=== PATIENT | male | born 1945 | race Caucasian/White ===

== ENCOUNTER 2017-11-25 11:30 | Outpatient (RCR) | payer SELFPAY | END 2017-11-26 23:59 | disposition home or self-care (01) | LOC: CR 11:30 | PROVIDERS: PCP Family Medicine; Visit Provider Family Medicine | DX: Z95.1 Presence of aortocoronary bypass graft (principal); Z51.89 Encounter for other specified aftercare ==

== ENCOUNTER 2017-12-16 07:00 | Outpatient (RCR) | payer SELFPAY | END 2017-12-26 23:59 | disposition home or self-care (01) | LOC: CR 07:00 | PROVIDERS: PCP Family Medicine; Visit Provider Family Medicine | DX: Z95.1 Presence of aortocoronary bypass graft (principal); Z51.89 Encounter for other specified aftercare ==

== ENCOUNTER 2018-01-25 07:00 | Outpatient (RCR) | payer SELFPAY | END 2018-01-26 23:59 | disposition home or self-care (01) | LOC: CR 07:00 | PROVIDERS: PCP Family Medicine; Visit Provider Family Medicine | DX: Z95.1 Presence of aortocoronary bypass graft (principal); Z51.89 Encounter for other specified aftercare ==

== ENCOUNTER 2018-02-22 07:00 | Outpatient (RCR) | payer SELFPAY | END 2018-02-25 23:59 | disposition home or self-care (01) | LOC: CR 07:00 | PROVIDERS: PCP Family Medicine; Visit Provider Family Medicine | DX: Z95.1 Presence of aortocoronary bypass graft (principal); Z51.89 Encounter for other specified aftercare ==

== ENCOUNTER 2018-03-08 07:00 | Outpatient (RCR) | payer SELFPAY | END 2018-03-28 23:59 | LOC: CR 07:00 | PROVIDERS: PCP Family Medicine; Visit Provider Family Medicine | DX: Z95.1 Presence of aortocoronary bypass graft (principal); Z51.89 Encounter for other specified aftercare ==

== ENCOUNTER 2018-03-29 15:57 | Observation (INO) | payer MEDICARE, BC, SELFPAY ==
[2018-03-29] VITALS (65 sets, daily range): BP systolic 106–156; BP diastolic 56–91; PULSE 50–126; RESP 10–25; TEMP 36.3–36.8; O2SAT 91–98
--- NOTE | 2018-03-29 16:04 | W.ED.GENAD ---
Discharge Plan Disposition Patient Disposition: [facility] INPATIENT Condition: Improving Discharge Details Chief Complaint: RespSymp Clinical Impression: Rapid atrial fibrillation Reason For Visit: SOB, AFIB Admit Date/Time: 03/29/18 18:49 Admit Provider: Demetri Soriano Attending Provider: Demetri Soriano Primary Care Provider: Yohan Pino ED Provider: Carlos Nuno Discharge Data Discharge Date/Time-TO BE ENTERED AT DEPARTURE: 03/29/18 19:59 Medical Decision Making 73-year-old 5-year-old corneal with very artery disease status post CABG, paroxysmal atrial fibrillation, COPD. He presents with intermittent episodes of exertional dyspnea over approximately 7-10 days time, worsening today. He does not have associated chest pain, no recent illness. He arrives to emerge department temperature 36.3, pulse in the 120s blood pressure 136/88. He is in rapid atrial fibrillation. DDX includes ACS, CHF, dehydration. IV placed, labs obtained and pt placed on monitor tech with bed rest. Given his rapid atrial rate, he was given 10 mg of diltiazem IV. It allow for some rate control and repeat EKG shows atrial fibrillation with a rate of 94. Lab Data Lab results reviewed: Yes I reviewed the patient's lab results. Laboratory Results - last 24 hr 03/29/18 03/29/18 03/29/18 16:07 16:07 16:07 WBC RBC Hgb Hct MCV MCH MCHC RDW Plt Count MPV Immature Gran % Neutrophils % Lymphocytes % Monocytes % Eosinophils % Basophils % Absolute Neutrophils Absolute Lymphocytes Absolute Monocytes Absolute Eosinophils Absolute Basophils PT 11.0 INR 1.1 Sodium 141 Potassium 4.0 Chloride 103 Carbon Dioxide 28.8 Anion Gap 9.2 BUN 25 H Creatinine 1.35 H Estimated GFR/1.73 m2 51.52 Glucose 173 H Calcium 9.4 Magnesium 1.8 Total Bilirubin 0.7 AST 17 ALT 34 Alkaline Phosphatase 68 Troponin I 0.03 NT-Pro-B Natriuret Pep 470 H Total Protein 7.3 Albumin 4.0 03/29/18 16:07 WBC 7.53 RBC 4.93 Hgb 14.8 Hct 42.8 MCV 86.8 MCH 30.0 MCHC 34.6 RDW 13.2 Plt Count 206 MPV 10.1 Immature Gran % 0.1 Neutrophils % 63.9 Lymphocytes % 27.0 Monocytes % 7.3 Eosinophils % 1.6 Basophils % 0.1 Absolute Neutrophils 4.81 Absolute Lymphocytes 2.03 Absolute Monocytes 0.55 Absolute Eosinophils 0.12 Absolute Basophils 0.01 PT INR Sodium Potassium Chloride Carbon Dioxide Anion Gap BUN Creatinine Estimated GFR/1.73 m2 Glucose Calcium Magnesium Total Bilirubin AST ALT Alkaline Phosphatase Troponin I NT-Pro-B Natriuret Pep Total Protein Albumin ECG Data Attestation: I personally reviewed and interpreted this ECG (s) as follows: Prior ECG tracings: available for review Interpretation: Rapid atrial fibrillation with a rate of approximately 100, the QRS shows left bundle branch block pattern, there is no ST segment elevation appreciated, it is not significantly change versus comparison from April 2006 EKG #2 at 1705 hrs. reveals underlying atrial fibrillation with a ventricular rate of 94, persistent left bundle branch block pattern HPI General Mode of arrival: ambulatory. Date/Time Provider Initiated Documentation: 03/29/18 15:59. Limitations to Documentation: no limitations. Information obtained by: patient. History of Present Illness 73 year old M presents to the emergency department with the chief complaint of Exertional dyspnea over a week's time, described as moderate, Quality is described as dull, and is localized to the chest. Patient reports no radiation. Patient started experiencing this day(s) and it has been intermittent. Rest improves symptom(s), Movement worsens symptoms . Patient notes no other symptoms. and shortness of breath; denies chest pain. Patient did receive the following treatments prior to arrival, none HPI Narrative: 73-year-old male with coronary artery disease, paroxysmal atrial fibrillation who states that he said intermittent episodes of exertional dyspnea primarily when moving heavy objects over approximately 1 week's time. It seems to resolve with rest. He states he does not of chest pain, nor did he want to have any previous MIs. This evening he was loading building material into his truck became quite winded and called his son to bring him to the ER. He states he does not recognize when he goes into atrial fibrillation but has continued to take his Cardizem, Eliquis, and other prescribed medication Related Data Home Medications Medication Instructions Recorded Confirmed aspirin [Ecotrin Low Strength] 81 mg PO HS 06/10/13 03/29/18 atorvastatin [Lipitor] 40 mg PO HS 06/10/13 03/29/18 albuterol sulfate 2 puff INHALATION Q6H PRN inhaler 07/03/14 03/29/18 blood sugar diagnostic [FreeStyle strip 07/03/14 09/19/16 Lite Strips] multivitamin [Daily Multi-Vitamin] 1 ea PO DAILY 07/03/14 03/29/18 nitroglycerin 0.4 mg SUBLINGUAL ONCE tab-cap 07/03/14 03/29/18 cholecalciferol (vitamin D3) 2,000 unit PO DAILY 08/16/14 03/29/18 [Vitamin D3] metformin 500 mg PO AC tab-cap 08/16/14 03/29/18 Eliquis 5 mg PO BID #180 tab 08/09/15 03/29/18 acetaminophen [Tylenol] 325 - 650 mg PO Q4H PRN PRN #0 tab 08/09/15 03/29/18 docusate sodium 100 mg PO DAILY 05/18/16 03/29/18 lisinopril 5 mg PO DAILY 05/18/16 03/29/18 loratadine 10 mg PO DAILY 05/18/16 03/29/18 Spiriva with HandiHaler 1 cap INHALATION DAILY #30 fariba 05/20/16 03/29/18 polyethylene glycol 3350 17 gm PO DAILY PRN PRN packet 05/20/16 09/19/16 Symbicort 1 puff INHALATION DAILY 09/19/16 03/29/18 apixaban [Eliquis] 5 mg PO BID 03/29/18 03/29/18 diltiazem HCl 240 mg PO DAILY 03/29/18 03/29/18 magnesium 400 mg PO DAILY 03/29/18 03/29/18 Previous Rx's Medication Instructions Recorded Eliquis 5 mg PO BID #180 tab 08/09/15 acetaminophen [Tylenol] 325 - 650 mg PO Q4H PRN PRN #0 tab 08/09/15 Spiriva with HandiHaler 1 cap INHALATION DAILY #30 fariba 05/20/16 polyethylene glycol 3350 17 gm PO DAILY PRN PRN packet 05/20/16 Allergies Allergy/AdvReac Type Severity Reaction Status Date / Time Sulfa (Sulfonamide Allergy Intermediate Skin Rash Unverified 09/19/16 12:11 Antibiotics) metoprolol AdvReac Severe BRADYCARDIA Unverified 09/19/16 12:11 Review of Systems Review of Systems 8 systems reviewed and otherwise negative [facility] Medical History Adenomatous polyps Coronary artery disease Diabetes mellitus type 2 in obese Hyperlipidemia Hypertension Sigmoid diverticulosis UTI (urinary tract infection) (08/04/14) Surgical History Colonoscopy - IV Sedation (~2009) Coronary Artery Bypass Gaft (CABG) (10/04/14) Social History Smoking/Tobacco Use Status: Former Tobacco Use Exam Narrative Exam Narrative: GEN: awake, alert, oriented 3. Pleasant, well groomed, interactive. HEAD: Normocephalic, atraumatic ENT: Mucous membranes moist, oropharynx unremarkable, External ear exam unremarkable EYES: PERRL, EOMI NECK: Full ROM, no NATHAN, no menigismus CHEST/RESP: Nontender, clear to auscultation bilateral, no wheeze/rhonchi/rales CARDIOVASCULAR: Irregularly irregular, tachycardic, no murmur, rub watson. 2+ Rad pulse bilateral ABDOMEN: Soft, nontender, no mass. +Bowel sounds EXT: Full ROM, no edema, no rash Neuro: Grossly normal neurologic exam, conversant, interactive. Psych: Speech fluent, thoughts congruent, affect normal
--- NOTE | 2018-03-29 16:15 | ED.GENADUL_ITS ---
Discharge Plan Disposition Patient Disposition: [facility] INPATIENT Condition: Improving Discharge Details Chief Complaint: RespSymp Clinical Impression: Rapid atrial fibrillation Reason For Visit: SOB, AFIB Admit Date/Time: 03/29/18 18:49 Admit Provider: Demetri Soriano Attending Provider: Demetri Soriano Primary Care Provider: Yohan Pino ED Provider: Carlos Nuno Discharge Data Discharge Date/Time-TO BE ENTERED AT DEPARTURE: 03/29/18 19:59 Medical Decision Making 73-year-old 5-year-old corneal with very artery disease status post CABG, paroxysmal atrial fibrillation, COPD. He presents with intermittent episodes of exertional dyspnea over approximately 7-10 days time, worsening today. He does not have associated chest pain, no recent illness. He arrives to emerge department temperature 36.3, pulse in the 120s blood p ressure 136/88. He is in rapid atrial fibrillation. DDX includes ACS, CHF, dehydration. IV placed, labs obtained and pt placed on engine monitor with bed rest. Given his rapid atrial rate, he was given 10 mg of diltiazem IV. It allow for some rate control and repeat EKG shows atrial fibrillation with a rate of 94. Lab Data Lab results reviewed: Yes I reviewed the patient's lab results. Laboratory Results - last 24 hr 03/29/18 03/29/18 03/29/18 16:07 16:07 16:07 WBC RBC Hgb Hct MCV MCH MCHC RDW Plt Count MPV Immature Gran % Neutrophils % Lymphocytes % Monocytes % Eosinophils % Basophils % Absolute Neutrophils Absolute Lymphocytes Absolute Monocytes Absolute Eosinophils Absolute Basophils PT 11.0 INR 1.1 Sodium 141 Potassium 4.0 Chloride 103 Carbon Dioxide 28.8 Anion Gap 9.2 BUN 25 H Creatinine 1.35 H Estimated GFR/1.73 m2 51.52 Glucose 173 H Calcium 9.4 Magnesium 1.8 Total Bilirubin 0.7 AST 17 ALT 34 Alkaline Phosphatase 68 Troponin I 0.03 NT-Pro-B Natriuret Pep 470 H Total Protein 7.3 Albumin 4.0 03/29/18 16:07 WBC 7.53 RBC 4.93 Hgb 14.8 Hct 42.8 MCV 86.8 MCH 30.0 MCHC 34.6 RDW 13.2 Plt Count 206 MPV 10.1 Immature Gran % 0.1 Neutrophils % 63.9 Lymphocytes % 27.0 Monocytes % 7.3 Eosinophils % 1.6 Basophils % 0.1 Absolute Neutrophils 4.81 Absolute Lymphocytes 2.03 Absolute Monocytes 0.55 Absolute Eosinophils 0.12 Absolute Basophils 0.01 PT INR Sodium Potassium Chloride Carbon Dioxide Anion Gap BUN Creatinine Estimated GFR/1.73 m2 Glucose Calcium Magnesium Total Bilirubin AST ALT Alkaline Phosphatase Troponin I NT-Pro-B Natriuret Pep Total Protein Albumin ECG Data Attestation: I personally reviewed and interpreted this ECG (s) as follows: Prior ECG tracings: available for review Interpretation: Rapid atrial fibrillation with a rate of approximately 100, the QRS shows left bundle branch block pattern, there is no ST segment elevation appreciated, it is not significantly change versus comparison from April 2006 EKG #2 at 1705 hrs. reveals underlying atrial fibrillation with a ventricular rate of 94, persistent left bundle branch block pattern HPI General Mode of arrival: ambulatory . Date/Time Provider Initiated Documentation: 03/29/18 15:59 . Limitations to Documentation: no limitations . Information obtained by: patient . History of Present Illness 73 year old M presents to the emergency department with the chief complaint of Exertional dyspnea over a week's time, described as moderate, Quality is described as dull, and is localized to the chest. Patient reports no radiation. Patient started experiencing this day(s) and it has been intermittent. Rest improves symptom(s), Movement worsens symptoms . Patient notes no other symptoms. and shortness of breath; denies chest pain. Patient did receive the following treatments prior to arrival, none HPI Narrative: 73-year-old male with coronary artery disease, paroxysmal atrial fibrillation who states that he said intermittent episodes of exertional dyspnea primarily when moving heavy objects over approximately 1 week's time. It seems to resolve with rest. He states he does not of chest pain, nor did he want to have any previous MIs. This evening he was loading building material into his truck became quite winded and called his son to bring him to the ER. He states he does not recognize when he goes into atrial fibrillation but has continued to take his Cardizem, Eliquis, and other prescribed medication Related Data Home Medications Medication Instructions Recorded Confirmed aspirin [Ecotrin Low Strength] 81 mg PO HS 06/10/13 03/29/18 atorvastatin [Lipitor] 40 mg PO HS 06/10/13 03/29/18 albuterol sulfate 2 puff INHALATION Q6H PRN inhaler 07/03/14 03/29/18 blood sugar diagnostic [FreeStyle strip 07/03/14 09/19/16 Lite Strips] multivitamin [Daily Multi-Vitamin] 1 ea PO DAILY 07/03/14 03/29/18 nitroglycerin 0.4 mg SUBLINGUAL ONCE tab-cap 07/03/14 03/29/18 cholecalciferol (vitamin D3) 2,000 unit PO DAILY 08/16/14 03/29/18 [Vitamin D3] metformin 500 mg PO AC tab-cap 08/16/14 03/29/18 Eliquis 5 mg PO BID #180 tab 08/09/15 03/29/18 acetaminophen [Tylenol] 325 - 650 mg PO Q4H PRN PRN #0 tab 08/09/15 03/29/18 docusate sodium 100 mg PO DAILY 05/18/16 03/29/18 lisinopril 5 mg PO DAILY 05/18/16 03/29/18 loratadine 10 mg PO DAILY 05/18/16 03/29/18 Spiriva with HandiHaler 1 cap INHALATION DAILY #30 fariba 05/20/16 03/29/18 polyethylene glycol 3350 17 gm PO DAILY PRN PRN packet 05/20/16 09/19/16 Symbicort 1 puff INHALATION DAILY 09/19/16 03/29/18 apixaban [Eliquis] 5 mg PO BID 03/29/18 03/29/18 diltiazem HCl 240 mg PO DAILY 03/29/18 03/29/18 magnesium 400 mg PO DAILY 03/29/18 03/29/18 Previous Rx's Medication Instructions Recorded Eliquis 5 mg PO BID #180 tab 08/09/15 acetaminophen [Tylenol] 325 - 650 mg PO Q4H PRN PRN #0 tab 08/09/15 Spiriva with HandiHaler 1 cap INHALATION DAILY #30 fariba 05/20/16 polyethylene glycol 3350 17 gm PO DAILY PRN PRN packet 05/20/16 Allergies Allergy/AdvReac Type Severity Reaction Status Date / Time Sulfa (Sulfonamide Allergy Intermediate Skin Rash Unverified 09/19/16 12:11 Antibiotics) metoprolol AdvReac Severe BRADYCARDIA Unverified 09/19/16 12:11 Review of Systems Review of Systems 8 systems reviewed and otherwise negative [facility] Medical History Adenomatous polyps Coronary artery disease Diabetes mellitus type 2 in obese Hyperlipidemia Hypertension Sigmoid diverticulosis UTI (urinary tract infection) (08/04/14) Surgical History Colonoscopy - IV Sedation (~2009) Coronary Artery Bypass Gaft (CABG) (10/04/14) Social History Smoking/Tobacco Use Status: Former Tobacco Use Exam Narrative Exam Narrative: GEN: awake, alert, oriented 3. Pleasant, well groomed, interactive. HEAD: Normocephalic, atraumatic ENT: Mucous membranes moist, oropharynx unremarkable, External ear exam unremarkable EYES: PERRL, EOMI NECK: Full ROM, no NATHAN, no menigismus CHEST/RESP: Nontender, clear to auscultation bilateral, no wheeze/rhonchi/rales CARDIOVASCULAR: Irregularly irregular, tachycardic, no murmur, rub watson. 2+ Rad pulse bilateral ABDOMEN: Soft, nontender, no mass. +Bowel sounds EXT: Full ROM, no edema, no rash Neuro: Grossly normal neurologic exam, conversant, interactive. Psych: Speech fluent, thoughts congruent, affect normal
--- NOTE | 2018-03-29 16:18 | DI.RAD_ITS ---
SYMPTOM/DIAGNOSIS: SOB, EXERTIONAL PA AND LATERAL CHEST: Comparison is made with 05/18/16. The heart size is normal. The patient is status post CABG. The lungs are well inflated and clear. IMPRESSION: No acute abnormality.
[2018-03-29 16:35] LABS: Abs Immature Grans 0.01 k/cumm (0.0-0.09); Absolute Basophil Count 0.01 k/cumm (0.0-0.2); Absolute Eosinophil Count 0.12 k/cumm (0.0-0.7); Absolute Lymphocyte Count 2.03 k/cumm (1.2-3.4); Absolute Monocyte Count 0.55 k/cumm (0.11-0.7); Absolute Neutrophil Count 4.81 k/cumm (1.2-6.7); Basophils % 0.1; Eosinophils % 1.6; HCT 42.8 % (40.0-50.0); HGB 14.8 g/dL (13.5-17.5); Immature Grans % 0.1; Mean Corp. HGB Concentration 34.6 g/dL (32.0-36.0); Mean Corpuscular Volume 86.8 fL (80-95); Mean Platelet Volume 10.1 fL (8.0-11.0); Monocytes % 7.3; Neutrophils % 63.9; Platelet Count 206 x1000/uL (130-400); RBC 4.93 m/cumm (4.50-6.00); RBC Distribution Width 13.2 % (11.8-14.1); White Blood Cell Count 7.53 k/cumm (4.4-10.8)
[2018-03-29 16:46] LABS: INR 1.1 (1.0-3.5)
[2018-03-29 16:50] LABS: ALT 34 U/L (12-78); AST 17 U/L (15-37); Chloride 103 mmol/L (98-107); Sodium 141 mmol/L (136-145)
--- NOTE | 2018-03-29 16:56 | DI.VRAD_ITS ---
EXAM: XR Chest, 2 Views EXAM DATE/TIME: 03/29/2018 4:20 PM CLINICAL HISTORY: 73 years old, male; Signs and symptoms; Other: SOB, exertional TECHNIQUE: XR of the chest, 2 views. COMPARISON: CR CHEST 2 VIEWS PA,LAT 05/18/2016 4:06 PM FINDINGS: Lungs: COPD. The lungs are clear. No pulmonary consolidation. Pleural space: Unremarkable. No pleural effusion. No pneumothorax. Heart/Mediastinum: Status post CABG. Bones/joints: Unremarkable. IMPRESSION: COPD. Dictated and Authenticated by: Yobany Mckoy MD. Ordering:REBECCA Gonzalez MD
[2018-03-29 17:00] LABS: Alkaline Phosphatase 68 U/L (46-116); Anion Gap 9.2 mmol/L (3-11); BUN 25 mg/dL (7-18); Bilirubin, Total 0.7 mg/dL (0.2-1.0); CO2 28.8 mmol/L (21.0-32.0); CREATININE 1.35 mg/dL (0.70-1.30); Calcium 9.4 mg/dL (8.5-10.1); Estimated GFR 51.52 (mL/min/1.73m2); Glucose 173 mg/dL (70-100); Total Protein 7.3 g/dL (6.4-8.2); Troponin I 0.03 ng/mL (0.00-0.06)
[2018-03-29 17:05] LABS: Magnesium 1.8 mg/dL (1.8-2.4); NT-proBNP 470 pg/mL
--- NOTE | 2018-03-29 18:48 | HPE_ITS ---
Date of service: 03/29/18 Time of Service: 18:35 Assessment and Plan (1) SOB (shortness of breath): Current visit: Yes Status: Acute Exertional dyspnea. Not unlikely that this represents anginal equivalent. Assuming this to be the case it is possible that rapid rate of the atrial fibrillation is the culprit though cannot rule out at this time progression of underlying coronary disease. For now will complete rule out protocol and increased dose of Cardizem to maintain better rate control. If there remains any question about underlying status of the coronary with could consider a stress test and/or cardiac catheterization, though if patient becomes symptom- free once the atrial fibrillation is under control I am not sure that further intervention would be required at this point History of Present Illness Chief Complaint: Shortness of breath Narrative: Patient is a 73-year-old male with history of coronary artery disease and atrial fibrillation. He has had KS in the past and CABG x2, presenting with exertional dyspnea as anginal equivalent he has never had chest pain. He comes to the emergency room with a week or 2 of escalating exertional dyspnea, worse today. In the emergency room initial evaluation of note for atrial fibrillation at rate of approximately 130. Note that patient was not aware of this. Initial EKG showed no ischemic changes. Patient was given 10 mg of Cardizem IV with slowing of the rate to approximately 80. Initial troponin negative. He is admitted for further evaluation and management. Past medical history: Atrial fibrillation, COPD, coronary coronary artery disease status post IMI age 48 and CABG times 27 September 2014, hypertension, hyperlipidemia, diabetes, essential tremor Allergies to sulfa and metoprolol Medications: Tylenol as needed albuterol as needed Eliquis 5 twice daily aspirin 81 at bedtime Lipitor 40 at bedtime, vitamin D, Cardizem CD 240 daily, Colace, lisinopril 5 daily, Claritin 10 daily, metformin 500 AC,, Spiriva, Symbicort Physical exam temp 36.7 pulse initially in the 120s, now approximately 60-70 (on the monitor patient is having periods of atrial flutter alternating with atrial fibrillation), respirations 15-20, O2 sat 95-98% on room air. HEENT is unremarkable. Neck is supple without JVD. Lungs clear. Heart irregularly irregular without murmurs rubs or gallops. Abdomen soft nontender. and rectal exams deferred. Extremities without cyanosis clubbing or edema, pulses are 2+ and equal. Neurological patient is alert and oriented and moves all 4 extremities equally Laboratory White count 7.5 hematocrit 42 platelet 206 sodium 141 potassium 4.0 chloride 103 bicarb 28 BUN 25 creatinine 1.3 glucose 173 BNP 470 troponin is 0.03 EKG shows atrial fibrillation with old inferior KS and nonspecific T wave changes Review of Systems Review of Systems All systems reviewed & are unremarkable except as noted in HPI and below PFSH Medical History Adenomatous polyps Coronary artery disease Diabetes mellitus type 2 in obese Hyperlipidemia Hypertension Sigmoid diverticulosis UTI (urinary tract infection) (08/04/14) Surgical History Colonoscopy - IV Sedation (~2009) Coronary Artery Bypass Gaft (CABG) (10/04/14) Social History Smoking/Tobacco Use Status: Former Tobacco Use Meds Home Medications Medication Instructions Recorded Confirmed Type aspirin [Ecotrin Low Strength] 81 mg PO HS 06/10/13 03/29/18 History atorvastatin [Lipitor] 40 mg PO HS 06/10/13 03/29/18 History albuterol sulfate 2 puff INHALATION Q6H PRN inhaler 07/03/14 03/29/18 History blood sugar diagnostic [FreeStyle strip 07/03/14 09/19/16 History Lite Strips] multivitamin [Daily Multi-Vitamin] 1 ea PO DAILY 07/03/14 03/29/18 History nitroglycerin 0.4 mg SUBLINGUAL ONCE tab-cap 07/03/14 03/29/18 History cholecalciferol (vitamin D3) 2,000 unit PO DAILY 08/16/14 03/29/18 History [Vitamin D3] metformin 500 mg PO AC tab-cap 08/16/14 03/29/18 History Eliquis 5 mg PO BID #180 tab 08/09/15 03/29/18 Rx acetaminophen [Tylenol] 325 - 650 mg PO Q4H PRN PRN #0 tab 08/09/15 03/29/18 Rx docusate sodium 100 mg PO DAILY 05/18/16 03/29/18 History lisinopril 5 mg PO DAILY 05/18/16 03/29/18 History loratadine 10 mg PO DAILY 05/18/16 03/29/18 History Spiriva with HandiHaler 1 cap INHALATION DAILY #30 fariba 05/20/16 03/29/18 Rx polyethylene glycol 3350 17 gm PO DAILY PRN PRN packet 05/20/16 09/19/16 Rx Symbicort 1 puff INHALATION DAILY 09/19/16 03/29/18 History apixaban [Eliquis] 5 mg PO BID 03/29/18 03/29/18 History diltiazem HCl 240 mg PO DAILY 03/29/18 03/29/18 History magnesium 400 mg PO DAILY 03/29/18 03/29/18 History Allergies Allergy/AdvReac Type Severity Reaction Status Date / Time Sulfa (Sulfonamide Allergy Intermediate Skin Rash Unverified 09/19/16 12:11 Antibiotics) metoprolol AdvReac Severe BRADYCARDIA Unverified 09/19/16 12:11 Exam Narrative Exam Narrative: per HPI Results Labs : 03/29/18 16:07 03/29/18 16:07 Laboratory Results - last 24 hr 03/29/18 03/29/18 03/29/18 16:07 16:07 16:07 WBC RBC Hgb Hct MCV MCH MCHC RDW Plt Count MPV Immature Gran % Neutrophils % Lymphocytes % Monocytes % Eosinophils % Basophils % Absolute Neutrophils Absolute Lymphocytes Absolute Monocytes Absolute Eosinophils Absolute Basophils PT 11.0 INR 1.1 Sodium 141 Potassium 4.0 Chloride 103 Carbon Dioxide 28.8 Anion Gap 9.2 BUN 25 H Creatinine 1.35 H Estimated GFR/1.73 m2 51.52 Glucose 173 H Calcium 9.4 Magnesium 1.8 Total Bilirubin 0.7 AST 17 ALT 34 Alkaline Phosphatase 68 Troponin I 0.03 NT-Pro-B Natriuret Pep 470 H Total Protein 7.3 Albumin 4.0 03/29/18 16:07 WBC 7.53 RBC 4.93 Hgb 14.8 Hct 42.8 MCV 86.8 MCH 30.0 MCHC 34.6 RDW 13.2 Plt Count 206 MPV 10.1 Immature Gran % 0.1 Neutrophils % 63.9 Lymphocytes % 27.0 Monocytes % 7.3 Eosinophils % 1.6 Basophils % 0.1 Absolute Neutrophils 4.81 Absolute Lymphocytes 2.03 Absolute Monocytes 0.55 Absolute Eosinophils 0.12 Absolute Basophils 0.01 PT INR Sodium Potassium Chloride Carbon Dioxide Anion Gap BUN Creatinine Estimated GFR/1.73 m2 Glucose Calcium Magnesium Total Bilirubin AST ALT Alkaline Phosphatase Troponin I NT-Pro-B Natriuret Pep Total Protein Albumin Last Vital Signs Temp 36.3 C L 03/29/18 16:07 Pulse 124 H 03/29/18 16:07 Resp 15 03/29/18 17:10 BP 132/71 03/29/18 16:32 Pulse Ox 96 03/29/18 17:10
[2018-03-29 21:19] LABS: Troponin I 0.02 ng/mL (0.00-0.06)
[2018-03-29] MEDS: Apixaban 5 MG TAB PO (22:42)
[2018-03-29] MEDS: Atorvastatin 40 MG TAB PO (22:42)
[2018-03-29] MEDS: Aspirin E.C. 81 MG TABEC PO (22:43)
[2018-03-30] VITALS (24 sets, daily range): BP systolic 108–144; BP diastolic 56–97; PULSE 53–102; RESP 9–23; TEMP 36.1–36.8; O2SAT 93–99
[2018-03-30 07:33] LABS: Troponin I 0.03 ng/mL (0.00-0.06)
--- NOTE | 2018-03-30 07:34 | PDOC.CMIN ---
- If Service Date Differs Date of service: 03/30/18 Time of Service: 07:36 Care Management Initial Assess REASON FOR HOSPITALIZATION:: SOB, A-fib. PAST MEDICAL HISTORY/PAST SURGICAL HISTORY:: Adenomatous polyps, CAD, diabetes type II, essential tremor, hyperlipidemia, hypertension, sigmoid diverticulosis, A-fib, COPD, hx. KS. Surgical hx: colonoscopy, CABGx2. PREVIOUS FUNCTIONAL STATUS/SOCIAL/FAMILY SUPPORTS:: Andrés resides in [facility] with his of 50 years, Jaswinder. Their adult son, his , and children also live in the 12 room home. 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 He is independent with his ADLs and transportation. CURRENT FUNCTIONAL STATUS:: Andrés is in the ICU receiving reiki when CM visits this morning. His , Jaswinder, and son and grandson are visiting as well. He reports that he is feeling well and is looking forward to returning home when ready. He and Jaswinder have a two week vacation planned to [place] in April and he is anxious to get back to work. Andrés (and Jaswinder) are interested in filling out Advanced Directives. CM gave them each a copy and will check in later today to assist if needed. Andrés will be having an echo later this morning. ADVANCE DIRECTIVES:: None on file at [facility]. Has patient been provided with information about the portal?: Yes Did the patient sign up for the portal?: No CODE STATUS:: Full Code INSURANCE COVERAGE / FINANCIAL ISSUES:: [facility], [facility], Medicare. CURRENT HOME/COMMUNITY SERVICES/EQUIPMENT:: No current home or community services. No equipment. PRIMARY CARE PHYSICIAN:: Yohan Pino MD. POTENTIAL DISCHARGE NEEDS:: Follow up appointment with PCP. PATIENT/FAMILY EDUCATION NEEDS:: Discharge education, any limitations, and follow up plan of care. Ask Me Three discussion. ANTICIPATED BARRIERS TO DISCHARGE:: No anticipated barriers to discharge. TRANSPORTATION:: Andrés will transport via private vehicle with his , Jaswinder. PLAN:: Andrés will discharge when medically ready per MD. Anticipate patient will discharge with no services and follow up with his PCP. CM will continue to offer support to patient and care team regarding discharge planning and disposition.
--- NOTE | 2018-03-30 07:45 | INITIAL_ITS ---
- If Service Date Differs Date of service: 03/30/18 Time of Service: 07:36 Care Management Initial Assess REASON FOR HOSPITALIZATION:: SOB, A-fib. PAST MEDICAL HISTORY/PAST SURGICAL HISTORY:: Adenomatous polyps, CAD, diabetes type II, essential tremor, hyperlipidemia, hypertension, sigmoid diverticulosis, A-fib, COPD, hx. ID. Surgical hx: colonoscopy, CABGx2. PREVIOUS FUNCTIONAL STATUS/SOCIAL/FAMILY SUPPORTS:: Andrés resides in [facility] with his of 50 years, Jaswinder. Their adult son, his , and children also live in the 12 room home. 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 He is independent with his ADLs and transportation. CURRENT FUNCTIONAL STATUS:: Andrés is in the ICU receiving reiki when CM visits this morning. His , Jaswinder, and son and grandson are visiting as well. He reports that he is feeling well and is looking forward to returning home when ready. He and Jaswinder have a two week vacation planned to [place] in April and he is anxious to get back to work. Andrés (and Jaswinder) are interested in filling out Advanced Directives. CM gave them each a copy and will check in later today to assist if needed. Andrés will be having an echo later this morning. ADVANCE DIRECTIVES:: None on file at [facility]. Has patient been provided with information about the portal?: Yes Did the patient sign up for the portal?: No CODE STATUS:: Full Code INSURANCE COVERAGE / FINANCIAL ISSUES:: [facility] [employer] [facility], Medicare. CURRENT HOME/COMMUNITY SERVICES/EQUIPMENT:: No current home or community services. No equipment. PRIMARY CARE PHYSICIAN:: Yohan Pino MD. POTENTIAL DISCHARGE NEEDS:: Follow up appointment with PCP. PATIENT/FAMILY EDUCATION NEEDS:: Discharge education, any limitations, and follow up plan of care. Ask Me Three discussion. ANTICIPATED BARRIERS TO DISCHARGE:: No anticipated barriers to discharge. TRANSPORTATION:: Andrés will transport via private vehicle with his , Jaswinder. PLAN:: Andrés will discharge when medically ready per MD. Anticipate patient will discharge with no services and follow up with his PCP. CM will continue to offer support to patient and care team regarding discharge planning and disposition.
[2018-03-30] MEDS: Magnesium Oxide 400 MG TAB PO ×2 (08:52→10:51)
[2018-03-30] MEDS: Docusate Sodium 100 MG CAP PO (08:52)
[2018-03-30] MEDS: Multivitamin TAB 1 TAB PO (08:53)
[2018-03-30] MEDS: Loratidine 10 MG TAB PO (08:53)
[2018-03-30] MEDS: Lisinopril 5 MG TAB PO (08:53)
[2018-03-30] MEDS: Apixaban 5 MG TAB PO ×2 (08:53→20:19)
[2018-03-30] MEDS: Insulin Aspart 300 UNITS/3 ML PEN SC (09:11)
[2018-03-30 09:25] LABS: Anion Gap 9.1 mmol/L (3-11); BUN 23 mg/dL (7-18); CO2 25.9 mmol/L (21.0-32.0); CREATININE 1.05 mg/dL (0.70-1.30); Calcium 9.2 mg/dL (8.5-10.1); Chloride 102 mmol/L (98-107); Glucose 153 mg/dL (70-100); Magnesium 1.9 mg/dL (1.8-2.4); Sodium 137 mmol/L (136-145)
--- NOTE | 2018-03-30 10:40 | PHARADMIT ---
Addendum entered by Joan Chun 03/31/18 14:53: Pharmacy Note Subjective cardio consult and MPI ordered for tomorrow Objective vs ok, wt up to 100.5kg Assessment furosemide x 1 yesterday, Plan awaiting stress test(cardiology not available today) Original Note: Admission Pharmacy Clinical Review SOB, A-FIB Code Status Full Code Current Weight Wgt- 95.1 kg Renally Cleared and Narrow Therapeutic Index Meds CrCl~ 62 mL/min Meds-OK QTc Value / Action Taken QTc-433 na BP Control, Fever BP-131/74 Tmax-36.8C Electrolytes reviewed Na-137 K+4.0 Mag-1.9 DVT Prophylaxis Apixaban, ASA-ec Opiate Usage / Scheduled Bowel Regimen Ordered No Yes Plt/SCr for Heparin / Enoxaparin Plts-206 SCr-1.05 INR for Warfarin inr-1.1 H/H stable, WBC/Bands H&H- 14.8/42.8 WBC- 7.53 Antibiotic appropriateness none Cultures and Sensitivities none Surgical ABX d/c within 24 hr NA DM control / Insulin Dosing BG-153 Aspart Heart Failure (Check EF%) (MOHAN's, B-Block, Diuretics) Diltiazem-CD, Lisinopril, IV to PO Switch No Home Meds Reviewed Yes Home Meds Not Ordered Metformin, NTG, Miralax Comments
--- NOTE | 2018-03-30 12:30 | MERGE_ITS ---
*[facility]* *[facility]* [address] [place] [address] Date of study: 03/30/2018 Transthoracic Echocardiography M-mode, complete 2D, complete spectral Doppler, and color Doppler *STUDY CONCLUSIONS* Impressions: The patient was in atrial fibrillation throughout study. This rhythm can interfere with accurate global and segmental wall motion analysis. Summary: 1. Left ventricle: The cavity size was mildly dilated. Wall thickness was increased in a pattern of moderate LVH. Systolic function was moderately reduced. The estimated ejection fraction was 35-40%. Diffuse hypokinesis. 2. Ventricular septum: Septal motion showed paradoxical motion consistent with Bundle Branch Block. 3. Aortic valve: Trileaflet; mildly calcified leaflets. There was mild regurgitation. 4. Aorta: There was mild to moderate dilation, extending from the root to the proximal ascending aorta. The maximal diameter was 4.0cm. 5. Mitral valve: There was mild regurgitation. 6. Left atrium: The atrium was dilated. 7. Right ventricle: The cavity size was normal. Wall thickness was normal. Systolic function was normal. 8. Right atrium: The atrium was dilated. 9. Tricuspid valve: There was mild-moderate regurgitation. 10. Pulmonary arteries: Pulmonary systolic pressure was increased, in the range of 35mm Hg to 40mm Hg. *PATIENT PRESENTATION* Height: 177.8cm ((70in) ) S/D Pressure: 134 / 81 Weight: 94.8kg ((208.6lb) ) BSA: 2.19m^2 Test start time: 12:45 PM. Test stop time: 01:50 PM. ORDERING Cliff Warner REFERRING Cliff Warner PERFORMING [facility] WIG STYLIST RT Elva Mcdaniels)(CT), [facility] CONSULTING Yohan Pino *PROCEDURE DATA* Procedure information: The patient was identified by two identifiers. This study was interpreted by [facility]. Pertinent images and digital data are archived for permanent storage and are available for subsequent review. Study status: Routine. Transthoracic echocardiography. M-mode, complete 2D, complete spectral Doppler, and color Doppler. A Transthoracic Echocardiogram was performed. Scanning was performed from the parasternal, apical, subcostal, and suprasternal notch acoustic windows. Images were obtained using an [id number] cardiac ultrasound machine. Image quality was adequate. Study completion: The patient tolerated the procedure well. History: PMH: Rapid afib, CP, history of CAD. *CARDIAC ANATOMY* Left ventricle: The cavity size was mildly dilated. Wall thickness was increased in a pattern of moderate LVH. Systolic function was moderately reduced. The estimated ejection fraction was 35-40%. Diffuse hypokinesis. The study was not technically sufficient to allow evaluation of LV diastolic dysfunction due to atrial fibrillation. Aortic valve: Trileaflet; mildly calcified leaflets. Mobility was not restricted. Doppler: Transvalvular velocity was within the normal range. There was no stenosis. There was mild regurgitation. VTI ratio of LVOT to aortic valve: 0.64. Valve area (VTI): 2.3cm^2. Indexed valve area (VTI): 1.1cm^2/m^2. Peak velocity ratio of LVOT to aortic valve: 0.61. Valve area (Vmax): 2.3cm^2. Indexed valve area (Vmax): 1cm^2/m^2. Mean velocity ratio of LVOT to aortic valve: 0.65. Valve area (Vmean): 2.4cm^2. Indexed valve area (Vmean): 1.1cm^2/m^2. Mean gradient (S): 4.9mm Hg. Peak gradient (S): 8.9mm Hg. Aorta: There was mild to moderate dilation, extending from the root to the proximal ascending aorta. The maximal diameter was 4.0cm. Mitral valve: Structurally normal valve. Mobility was not restricted. Doppler: Transvalvular velocity was within the normal range. There was no evidence for stenosis. There was mild regurgitation. Valve area by pressure half-time: 5.8cm^2. Indexed valve area by pressure half-time: 2.7cm^2/m^2. Left atrium: The atrium was dilated. Right ventricle: The cavity size was normal. Wall thickness was normal. Systolic function was normal. Ventricular septum: Septal motion showed paradoxical motion consistent with Bundle Branch Block. Pulmonic valve: Structurally normal valve. Doppler: Transvalvular velocity was within the normal range. There was no evidence for stenosis. There was no significant regurgitation. Peak gradient (S): 4.2mm Hg. Tricuspid valve: Structurally normal valve. Doppler: Transvalvular velocity was within the normal range. There was no evidence for stenosis. There was mild-moderate regurgitation. Pulmonary artery: Pulmonary systolic pressure was increased, in the range of 35mm Hg to 40mm Hg. Right atrium: The atrium was dilated. Pericardium: There was no pericardial effusion. Systemic veins: Inferior vena cava: Well visualized. The vessel was patent and normal in size. The respirophasic diameter changes were in the normal range (greater than or equal to 50%). Measurements Left ventricle Value 05/20/2016 Reference LV ID, ED, PLAX 6.0 cm 5.8 3.5 - 6.0 LV ID, ES, PLAX (H) 4.5 cm 4.0 2.1 - 4.0 LV PW thickness, ED, PLAX 1.4 cm 1.5 LV end-diastolic volume, 146 ml 1-p A2C LV ejection fraction, 1-p 32 % 44 A2C LV end-diastolic volume, 109 ml 1-p A4C LV ejection fraction, 1-p 43 % A4C LV e', lateral 0.151 m/sec LV E/e', lateral 4 LV e', medial 0.061 m/sec LV E/e', medial 11 LV e', average 0.106 m/sec LV E/e', average 6 Ventricular septum Value 05/20/2016 Reference IVS thickness, ED, PLAX 1.5 cm 1.4 LVOT Value 05/20/2016 Reference LVOT ID, A-P 2.2 cm 2.1 LVOT area 3.7 cm^2 3.5 LVOT peak velocity, S 0.92 m/sec 0.84 LVOT mean velocity, S 0.7 m/sec LVOT VTI, S 18.4 cm 13.0 LVOT peak gradient, S 3.4 mm Hg LVOT mean gradient, S 2.1 mm Hg 1.5 Stroke volume (SV), LVOT 68 ml DP Stroke index (SV/bsa), 31 ml/m^2 LVOT DP Aortic valve Value 05/20/2016 Reference Aortic valve peak 1.5 m/sec velocity, S Aortic valve mean 1.06 m/sec velocity, S Aortic valve VTI, S 29.0 cm Aortic mean gradient, S 4.9 mm Hg 5 Aortic peak gradient, S 8.9 mm Hg 9 VTI ratio, LVOT/AV 0.64 0.62 Aortic valve area, VTI 2.3 cm^2 2.2 Velocity ratio, peak, 0.61 0.58 LVOT/AV Aortic valve area, peak 2.3 cm^2 2 velocity Velocity ratio, mean, 0.65 LVOT/AV Aortic valve area, mean 2.4 cm^2 velocity Aortic valve area/bsa, 1.1 cm^2/m^2 mean velocity Aorta Value 05/20/2016 Reference Aortic root ID, ED 4.0 cm 4.1 Ascending aorta ID, A-P, S 4.0 cm 4.0 Left atrium Value 05/20/2016 Reference LA ID, A-P, ES 4.7 cm LA ID/bsa, A-P 2.1 cm/m^2 <=2.2 LA area, ES, A4C 22.1 cm^2 18 8.8 - 23.4 LA area, ES, A2C 19 cm^2 LA volume/bsa, ES, 1-p A4C 33 ml/m^2 24 LA volume, ES, 2-p 57 ml LA volume/bsa, ES, 2-p 26 ml/m^2 LA/aortic root ratio 1.17 1.07 Mitral valve Value 05/20/2016 Reference Mitral E-wave peak 0.65 m/sec 0.65 velocity Mitral A-wave peak 0.81 m/sec 0.48 velocity Mitral deceleration time (L) 131 ms 150 - 230 Mitral pressure half-time 38 ms 48 Mitral E/A ratio, peak 0.81 1.35 Mitral valve area, PHT, DP 5.8 cm^2 4.6 Tricuspid valve Value 05/20/2016 Reference Tricuspid regurg peak 2.9 m/sec 2.3 velocity Tricuspid peak RV-RA 33.7 mm Hg 21.1 gradient Right atrium Value 05/20/2016 Reference RA area, ES, A4C (H) 23.9 cm^2 19 8.3 - 19.5 Pulmonic valve Value 05/20/2016 Reference Pulmonic peak gradient, S 4.2 mm Hg Legend: (L) and (H) emilio values outside specified reference range. I have personally reviewed the images and have reviewed and edited the reported findings. Electronically signed by Dominic Juarez 03/30/2018 15:05
--- NOTE | 2018-03-30 12:54 | W.PM.PROGNOT ---
Assessment and Plan (1) SOB (shortness of breath): (2) CAD (coronary artery disease): (3) Atrial fibrillation: Responded well to IV Cardizem push, currently with rate well controlled. Continue to maintain on home regimen of long-acting Cardizem, and titrate accordingly. (4) COPD (chronic obstructive pulmonary disease): Appears quiescent. Continue home inhaler therapy with Spiriva, combination IGC/LABA. Duonebs as needed (5) Diabetes mellitus: Holding metformin. Continue sliding scale coverage, ADA diet. (6) Hypertension: Currently on Cardizem, low-dose MOHAN inhibitor. (7) Dyslipidemia: Continue high potency statin. (8) DVT (deep venous thrombosis):
[2018-03-30 14:50] LABS: Troponin I < 0.02 ng/mL (0.00-0.06)
--- NOTE | 2018-03-30 15:33 | W.PM.PROGNOT ---
Date of Service Date of service: 03/30/18 Time of Service: 15:33 Assessment and Plan (1) SOB (shortness of breath): Current visit: Yes Status: Acute Dyspnea, and dyspnea on exertion reported for the past few weeks may be related to uncontrolled rate, but also with evidence of worsening LV ejection fraction. Need to consider ischemia (despite negative troponins) as well as CHF as potential etiologies. Consider stress test once patient is stabilized from a heart rate standpoint, and diurese gently. BN P only minimally elevated at 470. (2) Atrial fibrillation: Current visit: Yes Status: Chronic Appears rate controlled. Continue home regimen of Cardizem, and monitor heart rate closely on telemetry, with titration of belgica agents as needed. Continue anticoagulation with apixaban. (3) CHF (congestive heart failure): Current visit: Yes Status: Chronic History of mild congestive heart failure by echocardiogram nearly 2 years ago, with LVEF of 45-50%. Current EF is dropped even further and is down to 35-40%, with noted diffuse hypokinesis. Patient appears euvolemic to mildly fluid overloaded. He is currently on treatment with MOHAN inhibitor, but no beta-mic due to rate control with Cardizem. He is also on daily aspirin and high potency statin due to his history of CAD. Unsure of the reason for the drop in EF, and whether this is ischemic in nature or related to other factors such as persistent tachycardia. Need to check on availability of last stress test, and consider repeat now. Would also consider addition of ZIO patch in the future. (4) Hypertension: Current visit: Yes Status: Chronic Continue MOHAN inhibitor, Cardizem. (5) Dyslipidemia: Current visit: Yes Status: Chronic Continue high potency statin. (6) Diabetes mellitus: Current visit: Yes Status: Chronic Metformin on hold, sliding scale initiated. Continue ADA diet. (7) COPD (chronic obstructive pulmonary disease): Current visit: Yes Status: Chronic Appears quiescent. Continue Spiriva, IGC/LABA. Also on duo nebs as needed. (8) CAD (coronary artery disease): Current visit: Yes Status: Chronic Continue daily aspirin, high potency statin. Not on beta-mic as he is on Cardizem for rate control for his A. fib. (9) DVT prophylaxis: Current visit: Yes Status: Acute Chronically anticoagulated with apixaban. Subjective Interval history since last seen: 73-year-old man with past medical history significant for CAD s/p CABG and paroxysmal AFIB on anticoagulation admitted from [facility] emergency department on 03/29 with a diagnosis of AFIB with rapid ventricular response. Mr. Bocanegra has a past medical history significant for CAD with an SC at that instead necessitated CABG x2. He also has a history of atrial fibrillation on apixaban, COPD, DM, HTN, dyslipidemia, and a history of essential tremors. The patient presented to the ED with a complaint of worsening dyspnea on exertion ongoing for 1-2 weeks. Initial evaluation was noteworthy for a rapid ventricular rate, but lack of ischemic changes by EKG. His troponin was also noted to be negative. He was admitted for further evaluation and treatment of both his heart rate and to rule out for ACS. This morning his rate is well controlled. He was initially given an additional dose of IV Cardizem, and restarted on his oral long-acting Cardizem CD. His dyspnea appears to have resolved as well. His troponin remains negative. Exam Narrative Exam Narrative: General: Patient appears comfortable, AAOX3, NAD Neck: Supple CV: Irregular, nontachycardic, S1S2, No rubs, murmurs, or gallops. Pulmonary: Clear to auscultation bilaterally, no crackles, wheezing, or rhonchi Abdomen: + Bowel Sounds, soft, nontender, nondistended Vascular: Mild bilateral lower extremity edema Psych: Normal mood and affect. Objective Objective Clinical Data: Abnormal lab results 03/29/18 03/29/18 03/30/18 Range/Units 16:07 16:07 08:45 BUN 25 H 23 H (7-18) mg/dL Creatinine 1.35 H (0.70-1.30) mg/dL Glucose 173 H 153 H (70-100) mg/dL NT-Pro-B Natriuret Pep 470 H ( - 299) pg/mL Vital Signs Temperature 36.6 C 03/30/18 08:30 Temperature Source Temporal Artery Scan 03/30/18 08:30 Pulse 61 03/30/18 15:03 Pulse 63 03/30/18 15:03 Respiratory Rate 21 03/30/18 15:03 Respiratory Effort Non-Labored 03/30/18 08:30 Respiratory Depth Normal 03/30/18 08:30 Respiratory Pattern Normal 03/30/18 08:30 Blood Pressure 118/71 03/30/18 15:03 Blood Pressure Mean 83 03/30/18 15:03 Blood Pressure Position Sitting 03/30/18 08:30 Pulse Oximetry 95 03/30/18 15:03 Oxygen Delivery Method Room Air 03/30/18 08:30 Oxygen Flow Rate 0 03/30/18 08:30 Pain Level 0 03/30/18 08:30 Intake & Output 03/29/18 03/30/18 03/30/18 23:59 11:59 23:59 Intake Total 400 / 400 1100 / 1100 Output Total 350 / 350 2009 Balance 50 / 50 140 / -910 -1050 / -910 Weight 95.1 kg 95.1 kg Intake: Oral 400 / 400 1100 / 1100 Output: Urine 350 / 350 2009 Other: Urine Color Light Riri Yellow Yellow Urine Appearance Clear Clear Clear Urine Odor Strong Normal Normal Voiding Methods Urinal Urinal Urinal Laboratory Results WBC 7.53 k/cumm (4.4-10.8) 03/29/18 16:07 RBC 4.93 m/cumm (4.50-6.00) 03/29/18 16:07 Hgb 14.8 g/dL (13.5-17.5) 03/29/18 16:07 Hct 42.8 % (40.0-50.0) 03/29/18 16:07 MCV 86.8 fL (80-95) 03/29/18 16:07 MCH 30.0 pg (27.0-33.0) 03/29/18 16:07 MCHC 34.6 g/dL (32.0-36.0) 03/29/18 16:07 RDW 13.2 % (11.8-14.1) 03/29/18 16:07 Plt Count 206 x1000/uL (130-400) 03/29/18 16:07 MPV 10.1 fL (8.0-11.0) 03/29/18 16:07 Immature Gran % 0.1 03/29/18 16:07 Neutrophils % 63.9 03/29/18 16:07 Lymphocytes % 27.0 03/29/18 16:07 Monocytes % 7.3 03/29/18 16:07 Eosinophils % 1.6 03/29/18 16:07 Basophils % 0.1 03/29/18 16:07 Absolute Neutrophils 4.81 k/cumm (1.2-6.7) 03/29/18 16:07 Absolute Lymphocytes 2.03 k/cumm (1.2-3.4) 03/29/18 16:07 Absolute Monocytes 0.55 k/cumm (0.11-0.7) 03/29/18 16:07 Absolute Eosinophils 0.12 k/cumm (0.0-0.7) 03/29/18 16:07 Absolute Basophils 0.01 k/cumm (0.0-0.2) 03/29/18 16:07 PT 11.0 sec (9.3-11.0) 03/29/18 16:07 INR 1.1 (1.0-3.5) 03/29/18 16:07 Sodium 137 mmol/L (136-145) 03/30/18 08:45 Potassium 4.0 mmol/L (3.5-5.1) 03/30/18 08:45 Chloride 102 mmol/L (98-107) 03/30/18 08:45 Carbon Dioxide 25.9 mmol/L (21.0-32.0) 03/30/18 08:45 Anion Gap 9.1 mmol/L (3-11) 03/30/18 08:45 BUN 23 mg/dL (7-18) H 03/30/18 08:45 Creatinine 1.05 mg/dL (0.70-1.30) 03/30/18 08:45 Estimated GFR/1.73 m2 >= 60.00 (mL/min/1.73m2) 03/30/18 08:45 Glucose 153 mg/dL (70-100) H 03/30/18 08:45 Calcium 9.2 mg/dL (8.5-10.1) 03/30/18 08:45 Magnesium 1.9 mg/dL (1.8-2.4) 03/30/18 08:45 Total Bilirubin 0.7 mg/dL (0.2-1.0) 03/29/18 16:07 AST 17 U/L (15-37) 03/29/18 16:07 ALT 34 U/L (12-78) 03/29/18 16:07 Alkaline Phosphatase 68 U/L (46-116) 03/29/18 16:07 Troponin I < 0.02 ng/mL (0.00-0.06) 03/30/18 14:15 NT-Pro-B Natriuret Pep 470 pg/mL (-299) H 03/29/18 16:07 Total Protein 7.3 g/dL (6.4-8.2) 03/29/18 16:07 Albumin 4.0 g/dL (3.4-5.0) 03/29/18 16:07 Objective Narrative Objective Narrative: ate of study: 03/30/2018 Transthoracic Echocardiography M-mode, complete 2D, complete spectral Doppler, and color Doppler *STUDY CONCLUSIONS* Impressions: The patient was in atrial fibrillation throughout study. This rhythm can interfere with accurate global and segmental wall motion analysis. Summary: 1. Left ventricle: The cavity size was mildly dilated. Wall thickness was increased in a pattern of moderate LVH. Systolic function was moderately reduced. The estimated ejection fraction was 35-40%. Diffuse hypokinesis. 2. Ventricular septum: Septal motion showed paradoxical motion consistent with Bundle Branch Block. 3. Aortic valve: Trileaflet; mildly calcified leaflets. There was mild regurgitation. 4. Aorta: There was mild to moderate dilation, extending from the root to the proximal ascending aorta. The maximal diameter was 4.0cm. 5. Mitral valve: There was mild regurgitation. 6. Left atrium: The atrium was dilated. 7. Right ventricle: The cavity size was normal. Wall thickness was normal. Systolic function was normal. 8. Right atrium: The atrium was dilated. 9. Tricuspid valve: There was mild-moderate regurgitation. 10. Pulmonary arteries: Pulmonary systolic pressure was increased, in the range of 35mm Hg to 40mm Hg.
[2018-03-30] MEDS: Furosemide 20 MG/2 ML VIAL IVP (16:26)
[2018-03-30] MEDS: Normal Saline Flush 10 ML SYR IVP ×2 (16:52→20:19)
[2018-03-30] MEDS: Aspirin E.C. 81 MG TABEC PO (20:19)
[2018-03-30] MEDS: Atorvastatin 40 MG TAB PO (20:19)
[2018-03-30 22:05] LABS: TSH 2.11 uIU/mL (0.358-3.74)
[2018-03-31] VITALS (28 sets, daily range): BP systolic 98–140; BP diastolic 59–77; PULSE 55–252; RESP 13–28; TEMP 36–36.5; O2SAT 94–98
[2018-03-31 07:40] LABS: Anion Gap 8.5 mmol/L (3-11); BUN 22 mg/dL (7-18); CO2 27.5 mmol/L (21.0-32.0); CREATININE 1.18 mg/dL (0.70-1.30); Calcium 9.1 mg/dL (8.5-10.1); Chloride 102 mmol/L (98-107); Glucose 145 mg/dL (70-100); Potassium 3.9 mmol/L (3.5-5.1); Sodium 138 mmol/L (136-145)
[2018-03-31] MEDS: Docusate Sodium 100 MG CAP PO (08:35)
[2018-03-31] MEDS: Potassium Chloride 10 MEQ TABCR PO (08:35)
[2018-03-31] MEDS: Lisinopril 5 MG TAB PO (08:35)
[2018-03-31] MEDS: Multivitamin TAB 1 TAB PO (08:35)
[2018-03-31] MEDS: Loratidine 10 MG TAB PO (08:35)
[2018-03-31] MEDS: Magnesium Oxide 400 MG TAB PO (08:35)
[2018-03-31] MEDS: Apixaban 5 MG TAB PO ×2 (08:36→20:26)
[2018-03-31] MEDS: Insulin Aspart 300 UNITS/3 ML PEN SC ×2 (08:36→12:16)
[2018-03-31] MEDS: Budesonide/Formoterol 160/4.5 6 GM 60 PUFF INH IH ×2 (10:25→20:26)
--- NOTE | 2018-03-31 11:02 | NUR.NOTE ---
Nursing Note: Patient reports he has not been taking the Symbicort daily as it raises his heart rate. Neil Choi and this nurse discussed with patient importance to taking this medication daily and this is used as a rescue medication.
--- NOTE | 2018-03-31 12:14 | W.PM.PROGNOT ---
Date of Service Date of service: 03/31/18 Time of Service: 12:14 Assessment and Plan (1) SOB (shortness of breath): Current visit: Yes Status: Acute Dyspnea, and dyspnea on exertion reported for the past few weeks may be related to uncontrolled rate, but also with evidence of worsening LV ejection fraction. Need to consider ischemia (despite negative troponins) as well as CHF as potential etiologies. Discussed case with cardiology at [facility] who agreed that drop may be tachy mediated, but given patient's history a nuclear stress test was warranted. NPI ordered but not available until tomorrow. (2) Atrial fibrillation: Current visit: Yes Status: Chronic Appears rate controlled - currently in flutter with 4:1 conduction. Continue home regimen of Cardizem, and monitor heart rate closely on telemetry. Continue anticoagulation with apixaban. Will need ZIO at time of discharge. (3) CHF (congestive heart failure): Current visit: Yes Status: Chronic History of mild congestive heart failure by echocardiogram nearly 2 years ago, with LVEF of 45-50%. Current EF is dropped even further and is down to 35-40%, with noted diffuse hypokinesis. Patient appeared mildly fluid overloaded - now euvolemic with low dose IV Lasix X1. He is currently on treatment with MOHAN inhibitor, but no beta-mic due to rate control with Cardizem. He is also on daily aspirin and high potency statin due to his history of CAD. Unsure of the reason for the drop in EF, and whether this is ischemic in nature or related to other factors such as persistent tachycardia. Will check nuclear stress test tomorrow, and consider addition of ZIO patch in the future. (4) Hypertension: Current visit: Yes Status: Chronic Blood Pressure reasonable. Continue MOHAN inhibitor, Cardizem. (5) Dyslipidemia: Current visit: Yes Status: Chronic Continue high potency statin. (6) Diabetes mellitus: Current visit: Yes Status: Chronic Metformin on hold, sliding scale initiated. Continue ADA diet. (7) COPD (chronic obstructive pulmonary disease): Current visit: Yes Status: Chronic Appears quiescent. Continue Spiriva, IGC/LABA. Also on duo nebs as needed. (8) CAD (coronary artery disease): Current visit: Yes Status: Chronic Continue daily aspirin, high potency statin. Not on beta-mic as he is on Cardizem for rate control for his A. fib. Stress Test as above. (9) DVT prophylaxis: Current visit: Yes Status: Acute Chronically anticoagulated with apixaban. Start on oral PPI for GI prophalyxis as well. Subjective Interval history since last seen: 73-year-old man with past medical history significant for CAD s/p CABG and paroxysmal AFIB on anticoagulation admitted from [facility] emergency department on 03/29 with a diagnosis of AFIB with rapid ventricular response. Mr. Bocanegra has a past medical history significant for CAD with an [place] at that instead necessitated CABG x2. He also has a history of atrial fibrillation on apixaban, COPD, DM, HTN, dyslipidemia, and a history of essential tremors. The patient presented to the ED with a complaint of worsening dyspnea on exertion ongoing for 1-2 weeks. Initial evaluation was noteworthy for a rapid ventricular rate, but lack of ischemic changes by EKG. His troponin was also noted to be negative. He was admitted for further evaluation and treatment of both his heart rate and to rule out for ACS. This morning his rate continues to be well controlled. He was initially given an additional dose of IV Cardizem, and restarted on his oral long-acting Cardizem CD. He has remained in atrial flutter with a 4:1 block. His dyspnea appears to have resolved as well, and following administration of low dose lasix his minimal pulmonary crackles and LE edema are resolved as well. He has ruled out for ACS with serial CBM's. His ECHO however, showed a mild drop in LVEF, from a prior value of 45% to 35%, with diffuse hypokinesis. No overnight events were reported. He remains afebrile. Exam Narrative Exam Narrative: General: Patient appears comfortable, AAOX3, NAD Neck: Supple CV: Regular by exam, borderline bradycardic, S1S2, No rubs, murmurs, or gallops. Pulmonary: Clear to auscultation bilaterally, no crackles, wheezing, or rhonchi Abdomen: + Bowel Sounds, soft, nontender, nondistended Vascular: Mild bilateral lower extremity edema resolved Psych: Normal mood and affect. Objective Objective Clinical Data: Abnormal lab results 03/31/18 Range/Units 06:12 BUN 22 H (7-18) mg/dL Glucose 145 H (70-100) mg/dL Vital Signs Temperature 36.0 C L 03/31/18 09:30 Temperature Source Temporal Artery Scan 03/31/18 09:30 Pulse 62 03/31/18 10:00 Pulse 70 03/31/18 10:00 Respiratory Rate 15 03/31/18 10:00 Respiratory Effort Non-Labored 03/31/18 09:30 Respiratory Depth Normal 03/31/18 09:30 Respiratory Pattern Normal 03/31/18 09:30 Blood Pressure 140/69 03/31/18 10:00 Blood Pressure Mean 86 03/31/18 10:00 Blood Pressure Position Sitting 03/31/18 09:30 Pulse Oximetry 96 03/31/18 10:00 Oxygen Delivery Method Room Air 03/31/18 09:30 Oxygen Flow Rate 0 03/31/18 09:30 Pain Level 0 03/31/18 09:30 Intake & Output 03/30/18 03/31/18 03/31/18 23:59 11:59 23:59 Intake Total 1600 / 2700 600 / 600 Output Total 3130 / 4090 975 / 975 Balance -1530 / -1390 -375 / -375 Weight 100.5 kg Intake: Oral 1600 / 2700 600 / 600 Output: Urine 3130 / 4090 975 / 975 Other: Urine Color Yellow Yellow Urine Appearance Clear Clear Urine Odor None None Comment 2 voids Voiding Methods Urinal Urinal Laboratory Results WBC 7.53 k/cumm (4.4-10.8) 03/29/18 16:07 RBC 4.93 m/cumm (4.50-6.00) 03/29/18 16:07 Hgb 14.8 g/dL (13.5-17.5) 03/29/18 16:07 Hct 42.8 % (40.0-50.0) 03/29/18 16:07 MCV 86.8 fL (80-95) 03/29/18 16:07 MCH 30.0 pg (27.0-33.0) 03/29/18 16:07 MCHC 34.6 g/dL (32.0-36.0) 03/29/18 16:07 RDW 13.2 % (11.8-14.1) 03/29/18 16:07 Plt Count 206 x1000/uL (130-400) 03/29/18 16:07 MPV 10.1 fL (8.0-11.0) 03/29/18 16:07 Immature Gran % 0.1 03/29/18 16:07 Neutrophils % 63.9 03/29/18 16:07 Lymphocytes % 27.0 03/29/18 16:07 Monocytes % 7.3 03/29/18 16:07 Eosinophils % 1.6 03/29/18 16:07 Basophils % 0.1 03/29/18 16:07 Absolute Neutrophils 4.81 k/cumm (1.2-6.7) 03/29/18 16:07 Absolute Lymphocytes 2.03 k/cumm (1.2-3.4) 03/29/18 16:07 Absolute Monocytes 0.55 k/cumm (0.11-0.7) 03/29/18 16:07 Absolute Eosinophils 0.12 k/cumm (0.0-0.7) 03/29/18 16:07 Absolute Basophils 0.01 k/cumm (0.0-0.2) 03/29/18 16:07 PT 11.0 sec (9.3-11.0) 03/29/18 16:07 INR 1.1 (1.0-3.5) 03/29/18 16:07 Sodium 138 mmol/L (136-145) 03/31/18 06:12 Potassium 3.9 mmol/L (3.5-5.1) 03/31/18 06:12 Chloride 102 mmol/L (98-107) 03/31/18 06:12 Carbon Dioxide 27.5 mmol/L (21.0-32.0) 03/31/18 06:12 Anion Gap 8.5 mmol/L (3-11) 03/31/18 06:12 BUN 22 mg/dL (7-18) H 03/31/18 06:12 Creatinine 1.18 mg/dL (0.70-1.30) 03/31/18 06:12 Estimated GFR/1.73 m2 >= 60.00 (mL/min/1.73m2) 03/31/18 06:12 Glucose 145 mg/dL (70-100) H 03/31/18 06:12 Calcium 9.1 mg/dL (8.5-10.1) 03/31/18 06:12 Magnesium 2.0 mg/dL (1.8-2.4) 03/31/18 06:12 Total Bilirubin 0.7 mg/dL (0.2-1.0) 03/29/18 16:07 AST 17 U/L (15-37) 03/29/18 16:07 ALT 34 U/L (12-78) 03/29/18 16:07 Alkaline Phosphatase 68 U/L (46-116) 03/29/18 16:07 Troponin I < 0.02 ng/mL (0.00-0.06) 03/30/18 14:15 NT-Pro-B Natriuret Pep 470 pg/mL (-299) H 03/29/18 16:07 Total Protein 7.3 g/dL (6.4-8.2) 03/29/18 16:07 Albumin 4.0 g/dL (3.4-5.0) 03/29/18 16:07 TSH 2.11 uIU/mL (0.358-3.74) 03/30/18 08:45
--- NOTE | 2018-03-31 12:23 | PGE_ITS ---
Date of Service Date of service: 03/31/18 Time of Service: 12:14 Assessment and Plan (1) SOB (shortness of breath): Current visit: Yes Status: Acute Dyspnea, and dyspnea on exertion reported for the past few weeks may be related to uncontrolled rate, but also with evidence of worsening LV ejection fraction. Need to consider ischemia (despite negative troponins) as well as CHF as potential etiologies. Discussed case with cardiology at [facility] who agreed that drop may be tachy mediated, but given patient's history a nuclear stress test was warranted. NPI ordered but not available until tomorrow. (2) Atrial fibrillation: Current visit: Yes Status: Chronic Appears rate controlled - currently in flutter with 4:1 conduction. Continue home regimen of Cardizem, and monitor heart rate closely on telemetry. Continue anticoagulation with apixaban. Will need ZIO at time of discharge. (3) CHF (congestive heart failure): Current visit: Yes Status: Chronic History of mild congestive heart failure by echocardiogram nearly 2 years ago, with LVEF of 45-50%. Current EF is dropped even further and is down to 35- 40%, with noted diffuse hypokinesis. Patient appeared mildly fluid overloaded - now euvolemic with low dose IV Lasix X1. He is currently on treatment with MOHAN inhibitor, but no beta-mic due to rate control with Cardizem. He is also on daily aspirin and high potency statin due to his history of CAD. Unsure of the reason for the drop in EF, and whether this is ischemic in nature or related to other factors such as persistent tachycardia. Will check nuclear stress test tomorrow, and consider addition of ZIO patch in the future. (4) Hypertension: Current visit: Yes Status: Chronic Blood Pressure reasonable. Continue MOHAN inhibitor, Cardizem. (5) Dyslipidemia: Current visit: Yes Status: Chronic Continue high potency statin. (6) Diabetes mellitus: Current visit: Yes Status: Chronic Metformin on hold, sliding scale initiated. Continue ADA diet. (7) COPD (chronic obstructive pulmonary disease): Current visit: Yes Status: Chronic Appears quiescent. Continue Spiriva, IGC/LABA. Also on duo nebs as needed. (8) CAD (coronary artery disease): Current visit: Yes Status: Chronic Continue daily aspirin, high potency statin. Not on beta-mic as he is on Cardizem for rate control for his A. fib. Stress Test as above. (9) DVT prophylaxis: Current visit: Yes Status: Acute Chronically anticoagulated with apixaban. Start on oral PPI for GI prophalyxis as well. Subjective Interval history since last seen: 73-year-old man with past medical history significant for CAD s/p CABG and paroxysmal AFIB on anticoagulation admitted from [facility] emergency department on 03/29 with a diagnosis of AFIB with rapid ventricular response. Mr. Bocanegra has a past medical history significant for CAD with an [place] at that instead necessitated CABG x2. He also has a history of atrial fibrillation on apixaban, COPD, DM, HTN, dyslipidemia, and a history of essential tremors. The patient presented to the ED with a complaint of worsening dyspnea on exertion ongoing for 1-2 weeks. Initial evaluation was noteworthy for a rapid ventricular rate, but lack of ischemic changes by EKG. His troponin was also noted to be negative. He was admitted for further evaluation and treatment of both his heart rate and to rule out for ACS. This morning his rate continues to be well controlled. He was initially given an additional dose of IV Cardizem, and restarted on his oral long-acting Card izem CD. He has remained in atrial flutter with a 4:1 block. His dyspnea appears to have resolved as well, and following administration of low dose lasix his minimal pulmonary crackles and LE edema are resolved as well. He has ruled out for ACS with serial CBM's. His ECHO however, showed a mild drop in LVEF, from a prior value of 45% to 35%, with diffuse hypokinesis. No overnight events were reported. He remains afebrile. Exam Narrative Exam Narrative: General: Patient appears comfortable, AAOX3, NAD Neck: Supple CV: Regular by exam, borderline bradycardic, S1S2, No rubs, murmurs, or gallops. Pulmonary: Clear to auscultation bilaterally, no crackles, wheezing, or rhonchi Abdomen: + Bowel Sounds, soft, nontender, nondistended Vascular: Mild bilateral lower extremity edema resolved Psych: Normal mood and affect. Objective Objective Clinical Data: Abnormal lab results 03/31/18 Range/Units 06:12 BUN 22 H (7-18) mg/dL Glucose 145 H (70-100) mg/dL Vital Signs Temperature 36.0 C L 03/31/18 09:30 Temperature Source Temporal Artery Scan 03/31/18 09:30 Pulse 62 03/31/18 10:00 Pulse 70 03/31/18 10:00 Respiratory Rate 15 03/31/18 10:00 Respiratory Effort Non-Labored 03/31/18 09:30 Respiratory Depth Normal 03/31/18 09:30 Respiratory Pattern Normal 03/31/18 09:30 Blood Pressure 140/69 03/31/18 10:00 Blood Pressure Mean 86 03/31/18 10:00 Blood Pressure Position Sitting 03/31/18 09:30 Pulse Oximetry 96 03/31/18 10:00 Oxygen Delivery Method Room Air 03/31/18 09:30 Oxygen Flow Rate 0 03/31/18 09:30 Pain Level 0 03/31/18 09:30 Intake & Output 03/30/18 03/31/18 03/31/18 23:59 11:59 23:59 Intake Total 1600 / 2700 600 / 600 Output Total 3130 / 4090 975 / 975 Balance -1530 / -1390 -375 / -375 Weight 100.5 kg Intake: Oral 1600 / 2700 600 / 600 Output: Urine 3130 / 4090 975 / 975 Other: Urine Color Yellow Yellow Urine Appearance Clear Clear Urine Odor None None Comment 2 voids Voiding Methods Urinal Urinal Laboratory Results WBC 7.53 k/cumm (4.4-10.8) 03/29/18 16:07 RBC 4.93 m/cumm (4.50-6.00) 03/29/18 16:07 Hgb 14.8 g/dL (13.5-17.5) 03/29/18 16:07 Hct 42.8 % (40.0-50.0) 03/29/18 16:07 MCV 86.8 fL (80-95) 03/29/18 16:07 MCH 30.0 pg (27.0-33.0) 03/29/18 16:07 MCHC 34.6 g/dL (32.0-36.0) 03/29/18 16:07 RDW 13.2 % (11.8-14.1) 03/29/18 16:07 Plt Count 206 x1000/uL (130-400) 03/29/18 16:07 MPV 10.1 fL (8.0-11.0) 03/29/18 16:07 Immature Gran % 0.1 03/29/18 16:07 Neutrophils % 63.9 03/29/18 16:07 Lymphocytes % 27.0 03/29/18 16:07 Monocytes % 7.3 03/29/18 16:07 Eosinophils % 1.6 03/29/18 16:07 Basophils % 0.1 03/29/18 16:07 Absolute Neutrophils 4.81 k/cumm (1.2-6.7) 03/29/18 16:07 Absolute Lymphocytes 2.03 k/cumm (1.2-3.4) 03/29/18 16:07 Absolute Monocytes 0.55 k/cumm (0.11-0.7) 03/29/18 16:07 Absolute Eosinophils 0.12 k/cumm (0.0-0.7) 03/29/18 16:07 Absolute Basophils 0.01 k/cumm (0.0-0.2) 03/29/18 16:07 PT 11.0 sec (9.3-11.0) 03/29/18 16:07 INR 1.1 (1.0-3.5) 03/29/18 16:07 Sodium 138 mmol/L (136-145) 03/31/18 06:12 Potassium 3.9 mmol/L (3.5-5.1) 03/31/18 06:12 Chloride 102 mmol/L (98-107) 03/31/18 06:12 Carbon Dioxide 27.5 mmol/L (21.0-32.0) 03/31/18 06:12 Anion Gap 8.5 mmol/L (3-11) 03/31/18 06:12 BUN 22 mg/dL (7-18) H 03/31/18 06:12 Creatinine 1.18 mg/dL (0.70-1.30) 03/31/18 06:12 Estimated GFR/1.73 m2 >= 60.00 (mL/min/1.73m2) 03/31/18 06:12 Glucose 145 mg/dL (70-100) H 03/31/18 06:12 Calcium 9.1 mg/dL (8.5-10.1) 03/31/18 06:12 Magnesium 2.0 mg/dL (1.8-2.4) 03/31/18 06:12 Total Bilirubin 0.7 mg/dL (0.2-1.0) 03/29/18 16:07 AST 17 U/L (15-37) 03/29/18 16:07 ALT 34 U/L (12-78) 03/29/18 16:07 Alkaline Phosphatase 68 U/L (46-116) 03/29/18 16:07 Troponin I < 0.02 ng/mL (0.00-0.06) 03/30/18 14:15 NT-Pro-B Natriuret Pep 470 pg/mL (-299) H 03/29/18 16:07 Total Protein 7.3 g/dL (6.4-8.2) 03/29/18 16:07 Albumin 4.0 g/dL (3.4-5.0) 03/29/18 16:07 TSH 2.11 uIU/mL (0.358-3.74) 03/30/18 08:45
--- NOTE | 2018-03-31 12:37 | PDOC.CMPRO ---
- If Service Date Differs Date of service: 03/31/18 Time of Service: 12:37 Care Management Progress Note S/O: Andrés is sitting in his chair in the ICU when CM visits this morning. He is engaged in conversation, makes good eye contact, and is talkative. Andrés reports that he is feeling well. Andrés is due for a stress test and as cardiology is unavailable at the hospital today, there was discussion regarding patient remaining one more night for a stress test on Wednesday vs. returning home with an outpatient stress test. Andrés had verbalized to CM that he was hoping to return home today and follow up with cardiology outpatient, however he reported to MD that he would be more comfortable staying one more night for test in a.m. A: 73 year old male admitted with SOB and A-fib. P: Andrés will discharge home when medically ready per MD. Anticipate patient will discharge with no services and follow up with his PCP. Andrés will transport via private vehicle with his , Jaswinder. CM will continue to offer support to patient, family, and care team regarding discharge planning and disposition.
[2018-03-31] MEDS: Atorvastatin 40 MG TAB PO (22:04)
[2018-03-31] MEDS: Aspirin E.C. 81 MG TABEC PO (22:05)
[2018-04-01] VITALS (21 sets, daily range): BP systolic 86–137; BP diastolic 47–73; PULSE 53–122; RESP 11–24; TEMP 36.1–36.6; O2SAT 92–96
[2018-04-01] MEDS: Budesonide/Formoterol 160/4.5 6 GM 60 PUFF INH IH (07:25)
[2018-04-01 07:41] LABS: Anion Gap 7.9 mmol/L (3-11); BUN 24 mg/dL (7-18); CO2 29.1 mmol/L (21.0-32.0); CREATININE 1.15 mg/dL (0.70-1.30); Calcium 9.3 mg/dL (8.5-10.1); Chloride 102 mmol/L (98-107); Glucose 144 mg/dL (70-100); Sodium 139 mmol/L (136-145)
[2018-04-01] MEDS: Lisinopril 5 MG TAB PO (08:09)
[2018-04-01] MEDS: Pantoprazole 40 MG TABCR PO (08:09)
[2018-04-01] MEDS: Apixaban 5 MG TAB PO (08:09)
[2018-04-01] MEDS: Docusate Sodium 100 MG CAP PO (08:09)
[2018-04-01] MEDS: Magnesium Oxide 400 MG TAB PO (08:09)
[2018-04-01] MEDS: Multivitamin TAB 1 TAB PO (08:11)
[2018-04-01] MEDS: Loratidine 10 MG TAB PO (08:11)
--- NOTE | 2018-04-01 09:30 | MERGEMPI_ITS ---
*[facility]* *[facility]* [address] [place] [address] Myocardial Perfusion Imaging - SPECT Regadenoson Date of study: 04/01/2018 *PATIENT PRESENTATION* Height: 176.5cm (69.5in) Blood Pressure: Weight: 100.5kg (221lb) BSA: 2.25m^2 Referring physician: Cliff Warner Ordering physician: Cliff Warner Impressions: - Normal perfusion by Tc99m Sestamibi Imaging. - Abnormal contraction consistent with cardiomyopathy. Summary: 1. Myocardial perfusion imaging: No myocardial perfusion defects noted. 2. The calculated left ventricular ejection fraction after stress: 20%. Gated images sub-optimal due to atrial flutter and motion artifact. Estimated EF not accurate. LV global systolic function is severely reduced. Recommendations: Correlate EF with echo. Indication: I50.9. History: REASON FOR TESTING: THIS IS AN INPT WHO HAS BEEN EXPERIENCING DYSPNEA ON EXERTION FOR THE PAST FEW WEEKS POSSIBLE RELATED TO UNCONTROLLED RATE, ALSO WITH EVIDENCE OF WORSENING LV FUNCTION PAST MEDICAL HISTORY: ATRIAL FLUTTER, CHF, HTN, DYSLIPIDEMIA, DIABETES MELLITUS, COPD, CAD, DVT PROPHYLAXIS FAMILY HISTORY: FATHER-HEART ATTACK. SMOKING HISTORY: 36 YEAR PPD. Risk factors: Family history of coronary artery disease. Cholesterol: 176mg/dl. HDL: 44mg/dl. LDL: 87mg/dl. Triglycerides: 253mg/dl. ALLERGIES: SULFA. METOPROLOL. MEDICATIONS: ALBUTEROL SULFATE 2 PUFFS Q 6 HOURS PRN. ASPIRIN 81 MG AT HS. ATORVASTATIN 40 MG AT HS. VITAMIN D3 2,000 UNITS DAILY. DILTIAZEM HCL 240 MG DAILY. DOCUSATE SODIUM 100 MG DAILY. ELIQUIS 5MG BID. LISINOPRIL 5 MG DAILY. LORATIDINE 10 MG DAILY. MAGNESIUM 400 MG DAILY. METFORMIN 500 MG DAILY. MVI 1 DAILY. NITROGLYCERIN 0.4 MG PRN. SPIRIVA 1 INH DAILY. SYMBICORT 1 PUFF DAILY. Imaging Technique: Protocol: Regadenoson. Acquisition: Gated SPECT; 1 day - rest/stress. The patient was imaged in the supine position. Attenuation correction used. Isotope administration: - Rest. Tc[99m]-sestamibi. Dose: 10.3mCi. Injection time: 08:45 AM. Injection to stress time: 00:45. - Stress. Tc[99m]-sestamibi. Dose: 33mCi. Injection time: 11:05 AM. 1-2 min before end of exercise Baseline ECG: ATRIAL FLUTTER. 3:1 CONDUCTION. HR 70 BPM. Stress protocol: +--------+---+ + + !Stage !HR !BP (mmHg) !Comments ! +--------+---+ + + !Baseline!63 !134/74 (94)! ! +--------+---+ + + !1 min !125!128/68 (88)!Inject Regadenoson.! +--------+---+ + + !3 min !125!124/78 (93)! ! +--------+---+ + + !6 min !93 !120/68 (85)! ! +--------+---+ + + !9 min !95 !132/66 (88)! ! +--------+---+ + + * Stress results: The rate-pressure product for the peak heart rate and blood pressure was 30791rg Hg/min. Stress ECG: STRESS TEST ENDED IN 9 MINUTES & 4 SECONDS. PT HAD FACIAL FLUSHING AND ANXIETY 2 MINUTES POST LEXISCAN INJECTION. SYMPTOMS SUBSIDED 9 MINUTES POST LEXISCAN INJECTION. NORMAL HEART RATE AND NORMAL BLOOD PRESSURE RESPONSE TO LEXISCAN INJECTION. ATRIAL FLUTTER WITH VARYING CONDUCTION. NO ANGINA. LBBB AT BASELINE AND THROUGHOUT TEST. NO SIGNIFICANT ST SEGMENT CHANGES VISABLE. Myocardial perfusion: Imaging information: gated. No myocardial perfusion defects noted. Ventricular Function (Wall Motion): The calculated left ventricular ejection fraction after stress: 20%. Gated images sub-optimal due to atrial flutter and motion artifact. Estimated EF not accurate. LV global systolic function is severely reduced. Study data: Jason Gonzalez MD supervised and was readily available during the procedure. This study was interpreted by [facility]. Study status: Routine. Consent: The risks, benefits, and alternatives to the procedure were explained to the patient and informed consent was obtained. Procedure: Initial setup. A baseline ECG was recorded. Surface ECG leads and manual cuff blood pressure measurements were monitored. Heart sounds: Normal. Lung sounds: Normal. Regadenoson stress test. Stress testing was performed, with regadenoson by intravenous bolus, for a total dose of 0.4mgover 10.00sec, followed by a 5ml saline flush. The infusion was terminated due to per protocol. The patient was unable to exercise due to left bundle branch block. Study completion: All catheters inserted during the procedure were removed. The patient tolerated the procedure well and was discharged from the lab. Discharge: The patient left the laboratory in stable condition. Birthdate: Patient birthdate: 1945. Sex: Gender: male. Study date: Study date: 04/01/2018. Study time: 12:30 PM. Signature Documentation: - The imaging portion of this study was interpreted by Nuclear Logistical Engineer Jason Gonzalez MD. - The imaging portion of this study was interpreted by Nuclear Radiologist Uzair Armstrong MD. - The Stress ECG portion of this study was interpreted by Jason Gonzalez MD. Electronically signed by Jason Gonzalez 04/01/2018 15:47
[2018-04-01] MEDS: Regadenoson 0.4 MG/5 ML SYR IVP (10:52)
--- NOTE | 2018-04-01 12:23 | W.INDIABCONS ---
Date of service: 04/01/18 Time of Service: 12:24 Diabetes Inpatient Consult DESCRIPTION/ASSESSMENT: Appreciate diabetes consult for Mr. Bocanegra who is hospitalized with shortness of breath. He is 73 years old with BMI 31. No current A1c available. Blood sugars this hospitalization 115-162; lowest before supper. He has received sensitive insulin correction. He takes Metformin 500mg at home. Visited with Mr. Bocanegra who states he goes to the doctor every 3 months and he always says his diabetes is good. He does not know his current A1c. He no longer tests his blood sugar at home. He states he is somewhat careful about his food. He is active at work. He denies stress. INTERVENTION: Blood sugars at this time close to goal and he is able to avoid blood sugars greater than 180mg/dl here despite his illness. He states he believes he has the tools he need to manage his diabetes and he counts on his PCP to guide him. No intervention suggested at this time. PLAN: Will follow blood sugars. He knows we are available for support if needed. Time Spent in Nutritional Counseling and Treatment: 20 minutes inpatient
[2018-04-01] MEDS: Insulin Aspart 300 UNITS/3 ML PEN SC (12:45)
--- NOTE | 2018-04-01 14:23 | PDOC.CMPRO ---
- If Service Date Differs Date of service: 04/01/18 Time of Service: 14:23 Care Management Progress Note S/O: Andrés was scheduled for a stress test this morning. Per his , Jaswinder, the imaging was not clear and he is now back in DI for additional imaging. Jaswinder reports that Andrés has a follow up appointment with cardiology at [facility] on Wednesday, and anticipates that Andrés will be discharging home today. CM will continue to follow. Andrés had been MS overflow in the ICU and has now been moved to the MS floor; Room 231. A: 73 year old male admitted with SOB and A-fib. P: Andrés will discharge home when medically ready per MD. Anticipate patient will discharge with no services and follow up with cardiology at [facility] and his PCP. Andrés will transport via private vehicle with his , Jaswinder. CM will continue to offer support to patient, family, and care team regarding discharge planning and disposition.
--- NOTE | 2018-04-01 14:26 | CMPROGNOTE_ITS ---
- If Service Date Differs Date of service: 04/01/18 Time of Service: 14:23 Care Management Progress Note S/O: Andrés was scheduled for a stress test this morning. Per his , Jaswinder, the imaging was not clear and he is now back in DI for additional imaging. Jaswinder reports that Andrés has a follow up appointment with cardiology at [facility] on Wednesday, and anticipates that Andrés will be discharging home today. CM will continue to follow. Andrés had been MS overflow in the ICU and has now been moved to the MS floor; Room 231. A: 73 year old male admitted with SOB and A-fib. P: Andrés will discharge home when medically ready per MD. Anticipate patient will discharge with no services and follow up with cardiology at [facility] and his PCP. Andrés will transport via private vehicle with his , Jaswinder. CM will continue to offer support to patient, family, and care team regarding discharge planning and disposition.
--- NOTE | 2018-04-01 16:05 | W.PM.DS.N ---
Date of service: 04/01/18 Time of Service: 16:06 DS: Diagnosis Discharge Diagnosis (1) SOB (shortness of breath): Status: Acute (2) Atrial fibrillation: Status: Chronic (3) CHF (congestive heart failure): Status: Chronic (4) Hypertension: Status: Chronic (5) Dyslipidemia: Status: Chronic (6) Diabetes mellitus: Status: Chronic (7) COPD (chronic obstructive pulmonary disease): Status: Chronic (8) CAD (coronary artery disease): Status: Chronic Discharge Plan Disposition Patient Disposition: HOME Condition: Improving Discharge Details Reason For Visit: FAREED, AFIB Admit Date/Time: 03/29/18 18:49 Admit Provider: Demetri Soriano Attending Provider: Demetri Soriano Primary Care Provider: Yohan Pino [facility] Course: Mr. Bocanegra is a very pleasant 73 year old man with a past medical history significant for CAD with an AK that necessitated CABG x2, atrial fibrillation on apixaban, COPD, DM, HTN, dyslipidemia, and essential tremors. The patient presented to the ED on 03/29/18 with a complaint of worsening dyspnea on exertion for 1-2 weeks prior. Initial evaluation was noteworthy for a rapid ventricular rate, but lack of ischemic changes by EKG. His troponin was also noted to be negative. He was admitted for further evaluation and treatment of both his heart rate and to rule out for ACS. His troponins were 0.03-0.02-0.03- <0.02. He had an echocardiogram which revealed an LVEF of 35-40%, previous LVEF from 2 years ago was 45-50%. His case was discussed with [facility] cardiology who agreed that the drop may be tachy-mediated, but given patient's history a nuclear stress test was warranted. He went on to have an MPI which revealed normal perfusion with abnormal contraction. Cardiology reviewed his case and recommended discharge home with follow up with his bobbin cleaning machine operator at [facility] next week as scheduled. He was monitored on residential monitor which revealed a controlled heart rate, in a 4-1 atrial flutter. His anticoagulation with coumadin has been continued. He will be discharged home with a ZioPatch for continuous cardiac monitoring. He will continue his usual Cardizem dose. His blood pressure has been well controlled with his eve inhibitor and cardizem. He normally takes metfromin to control his blood sugars. Metfromin was placed on hold while in the hospital. He was placed on short-acting insulin sliding scale. His blood sugar was well controlled, he required very little insulin to maintain this. He will be discharged home with ZioPatch in place. He will follow up with his Building Economist next week as scheduled. He will follow up with his PCP next week as scheduled. Home Meds and New Rx's Prescriptions: New pantoprazole 40 mg Tablet,Delayed Release (Dr/Ec) 40 mg PO DAILY@0730 Qty: 30 RF: 0 Continued multivitamin [Daily Multi-Vitamin] 1 EACH tablet 1 ea PO DAILY RF: 0 blood sugar diagnostic [FreeStyle Lite Strips] 1 EACH strip 1 ea Miscellaneous DIRECTED RF: 0 albuterol sulfate 8.5 GM HFA aerosol inhaler 2 puff Inhalation Q6H PRN RF: 0 nitroglycerin 0.4 MG tablet, sublingual 0.4 mg Sublingual ONCE RF: 0 metformin 500 MG tablet extended release 24hr 500 mg PO AC RF: 0 cholecalciferol (vitamin D3) [Vitamin D3] 2,000 UNIT capsule 2,000 unit PO DAILY RF: 0 atorvastatin [Lipitor] 40 MG tablet 40 mg PO HS RF: 0 aspirin [Ecotrin Low Strength] 81 MG tablet,delayed release (DR/EC) 81 mg PO HS RF: 0 acetaminophen [Tylenol] 325 MG tablet 325 - 650 mg PO Q4H PRN PRNQty: 0 RF: 0 Eliquis 5 MG tablet 5 mg PO BID Qty: 180 RF: 0 docusate sodium 100 MG capsule 100 mg PO DAILY RF: 0 lisinopril 5 MG tablet 5 mg PO DAILY RF: 0 loratadine 10 MG tablet 10 mg PO DAILY RF: 0 polyethylene glycol 3350 17 GM powder in packet 17 gm PO DAILY PRN PRN (Reason: Constipation) RF: 0 Spiriva with HandiHaler 1 PUFF capsule, w/inhalation device 1 cap Inhalation DAILY Qty: 30 RF: 1 Symbicort 10.2 GM HFA aerosol inhaler 1 puff Inhalation DAILY RF: 0 magnesium 200 mg Tablet 400 mg PO DAILY RF: 0 Eliquis 5 mg Tablet 5 mg PO BID RF: 0 Changed diltiazem HCl 180 MG capsule,extended release 24hr 240 mg PO HS Qty: 0 RF: 0 Discharge Instructions Instructions: Atrial Fibrillation (DC) Additional Instructions: Please take your Cardizem tonight (you have been getting it here at night). Follow the instructions on the ZioPatch. Follow up with your Building Economist as scheduled. Follow up with your PCP as scheduled. Take care! Stand Alone Forms: Nursing Discharge Form Activity:: Activity as Tolerated Equipment/Supplies:: No Equipment Needed Diet:: Heart healthy Discharge Orders Discharge Orders: Discharge Order (Routine); Ordered 04/01/18 Ordered By: Susan Clement Exam Narrative Exam Narrative: General: Patient appears comfortable, AAOX3, NAD, sitting up in bed. Neck: Supple CV: Regular rate and rhythm, S1S2, No rubs, murmurs, or gallops. Pulmonary: Clear to auscultation bilaterally, no rales, wheezing, or rhonchi Abdomen: + Bowel Sounds, soft, nontender, nondistended Vascular: Mild bilateral lower extremity edema resolved Psych: Normal mood and affect. DS: Data Vitals/I&O Vitals and I&O: Vital Signs Temperature 36.4 C L 04/01/18 14:55 Temperature Source Tympanic 04/01/18 14:55 Pulse 82 04/01/18 14:55 Pulse Rhythm Regular 04/01/18 08:23 Pulse 62 04/01/18 09:00 Respiratory Rate 18 04/01/18 14:55 Respiratory Effort 04/01/18 08:23 Respiratory Depth Normal 04/01/18 08:23 Respiratory Pattern Normal 04/01/18 08:23 Blood Pressure 104/73 04/01/18 14:55 Blood Pressure Mean 84 04/01/18 08:00 Blood Pressure Position Sitting 03/31/18 09:30 Pulse Oximetry 96 04/01/18 14:55 Oxygen Delivery Method Room Air 04/01/18 14:55 Oxygen Flow Rate 0 04/01/18 14:55 Pain Level 0 04/01/18 14:55 Intake & Output 03/31/18 04/01/18 04/01/18 23:59 11:59 23:59 Intake Total 1600 / 3000 200 / 200 Output Total 2750 / 4125 1400 / 1400 Balance -1150 / -1125 -1200 / -1200 Weight 99 kg Intake: Oral 1600 / 3000 200 / 200 Output: Urine 2750 / 4125 1400 / 1400 Other: Urine Color Yellow Yellow Urine Appearance Clear Clear Urine Odor None Normal Voiding Methods Urinal Urinal Completed studies during hospitalization [Text1]: 03/29/18: PA AND LATERAL CHEST: Comparison is made with 05/18/16. The heart size is normal. The patient is status post CABG. The lungs are well inflated and clear. IMPRESSION: No acute abnormality. 03/30/18 ECHO: Impressions: The patient was in atrial fibrillation throughout study. This rhythm can interfere with accurate global and segmental wall motion analysis. Summary: 1. Left ventricle: The cavity size was mildly dilated. Wall thickness was increased in a pattern of moderate LVH. Systolic function was moderately reduced. The estimated ejection fraction was 35-40%. Diffuse hypokinesis. 2. Ventricular septum: Septal motion showed paradoxical motion consistent with Bundle Branch Block. 3. Aortic valve: Trileaflet; mildly calcified leaflets. There was mild regurgitation. 4. Aorta: There was mild to moderate dilation, extending from the root to the proximal ascending aorta. The maximal diameter was 4.0cm. 5. Mitral valve: There was mild regurgitation. 6. Left atrium: The atrium was dilated. 7. Right ventricle: The cavity size was normal. Wall thickness was normal. Systolic function was normal. 8. Right atrium: The atrium was dilated. 9. Tricuspid valve: There was mild-moderate regurgitation. 10. Pulmonary arteries: Pulmonary systolic pressure was increased, in the range of 35mm Hg to 40mm Hg. 04/01/18: Impressions: - Normal perfusion by Tc99m Sestamibi Imaging. - Abnormal contraction consistent with cardiomyopathy. Summary: 1. Myocardial perfusion imaging: No myocardial perfusion defects noted. 2. The calculated left ventricular ejection fraction after stress: 20%. Gated images sub-optimal due to atrial flutter and motion artifact. Estimated EF not accurate. LV global systolic function is severely reduced. Recommendations: Correlate EF with echo. Labs on day of discharge: Labs from last 24 hours 04/01/18 06:10 Sodium 139 Potassium 4.0 Chloride 102 Carbon Dioxide 29.1 Anion Gap 7.9 BUN 24 H Creatinine 1.15 Estimated GFR/1.73 m2 >= 60.00 Glucose 144 H Calcium 9.3 Magnesium 2.0 [facility] Medical History Essential tremor (Chronic) Dyslipidemia (Chronic) Hypertension (Chronic) Diabetes mellitus (Chronic) COPD (chronic obstructive pulmonary disease) (Chronic) Atrial fibrillation (Chronic) SOB (shortness of breath) (Acute) CAD (coronary artery disease) (Chronic) Adenomatous polyps Coronary artery disease Diabetes mellitus type 2 in obese Hyperlipidemia Hypertension Sigmoid diverticulosis UTI (urinary tract infection) (08/04/14) Surgical History Hx of CABG (Chronic) Colonoscopy - IV Sedation (~2009) Coronary Artery Bypass Gaft (CABG) (10/04/14) Social History Smoking/Tobacco Use Status: Former Tobacco Use
--- NOTE | 2018-04-22 10:30 | ZIOP_ITS ---
ZIO PATCH REPORT DATE OF DICTATION April 22, 2018 INDICATION Atrial fibrillation. ANALYSIS TIME 13 days and 15 hours. FINDINGS The patient as in atrial flutter throughout monitoring period. Average heart rate 77 beats per minute. Heart rates varying from 27 beats per minute to 180 beats per minute. 56 pauses noted, the longest lasting 3.5 seconds. Pauses were all nocturnal. Otherwise rare isolated ventricular ectopy. No nonsustained VT. 1 patient triggered event. Corresponds to atrial flutter with rapid ventricular response. Jason Gonzalez M.D. JENNY/ana T-04/22/2018
== END 2018-04-01 17:43 | disposition home or self-care (01) ==
LOC: ER 17:48 → ICU 03-30 12:50 → MS 04-01 14:08 → ICU 04-16 12:38 → MS 04-16 12:38
PROVIDERS: Admitting Provider General Practice; Emergency Provider Emergency Medicine; PCP Family Medicine; Visit Provider Internal Medicine
DX: R06.02 Shortness of breath (principal); I48.91 Unspecified atrial fibrillation; I50.20 Unspecified systolic (congestive) heart failure; I11.0 Hypertensive heart disease with heart failure; I47.2 Ventricular tachycardia; E78.5 Hyperlipidemia, unspecified; E11.9 Type 2 diabetes mellitus without complications; J44.9 Chronic obstructive pulmonary disease, unspecified; I25.10 Atherosclerotic heart disease of native coronary artery without angina pectoris; I25.2 Old myocardial infarction; Z79.84 Long term (current) use of oral hypoglycemic drugs; I45.4 Nonspecific intraventricular block; I08.3 Combined rheumatic disorders of mitral, aortic and tricuspid valves; I77.810 Thoracic aortic ectasia
CPT/HCPCS: 36415; 78452; 80048; 80053; 93005; 93016; 93018; 93225; 93306; 94640; 96374; 99222; 99232; 99233; 99239; 99285; 71046; 83735; 83880; 84443; 84484; 85025; 85610; 93010; 93017; 99217; 99219; 99226; G0378; J1941; J2785

== ENCOUNTER 2018-03-30 10:29 | Outpatient (RCR) | payer MEDICARE, BC, SELFPAY | END 2018-04-28 23:59 | disposition home or self-care (01) | LOC: CR 10:29 | PROVIDERS: PCP Family Medicine; Visit Provider Family Medicine | DX: Z95.1 Presence of aortocoronary bypass graft (principal); Z51.89 Encounter for other specified aftercare ==

== ENCOUNTER → 2018-04-01 07:00 | Outpatient (BNVA) | payer MEDICARE, BC, SELFPAY | PROVIDERS: PCP Family Medicine; Visit Provider Internal Medicine Cardiovascular Disease | DX: R69 Illness, unspecified (principal) ==

== ENCOUNTER 2018-04-19 10:58 | Emergency (ER) | payer MEDICARE, BC, SELFPAY ==
[2018-04-19 11:06] VITALS: BP 129/83; PULSE 64; RESP 17; TEMP 36.5; O2SAT 98
--- NOTE | 2018-04-19 11:24 | DI.CT_ITS ---
SYMPTOMS/DIAGNOSIS: FALL, TRAUMA, DIZZY, ON ELIQUIS CT BRAIN: Noncontrast examination. No priors. No intracranial hemorrhage, acute infarct, midline shift or mass effect is identified. The ventricles and sulci are consistent with the patient's age. There is no acute midline shift or mass effect. The calvarium is intact. There is a mucosal retention cyst or polyp in the left maxillary sinus. The remaining visualized paranasal sinuses are clear. The mastoid air cells are well pneumatized. No evidence of a calvarial fracture is seen. IMPRESSION: No acute intracranial process. The findings were discussed with the emergency department on the date of the examination.
--- NOTE | 2018-04-19 11:26 | ED.GENADUL_ITS ---
Discharge Plan Disposition Patient Disposition: HOME Discharge Details Chief Complaint: HeadInjury Clinical Impression: Fall, Acute head trauma Primary Care Provider: Yohan Pino ED Provider: Jason Bender Home Meds and New Rx's Prescriptions: Continued multivitamin [Daily Multi-Vitamin] 1 EACH tablet 1 ea PO DAILY RF: 0 blood sugar diagnostic [FreeStyle Lite Strips] 1 EACH strip 1 ea Miscellaneous DIRECTED RF: 0 albuterol sulfate 8.5 GM HFA aerosol inhaler 2 puff Inhalation Q6H PRN RF: 0 nitroglycerin 0.4 MG tablet, sublingual 0.4 mg Sublingual ONCE RF: 0 metformin 500 MG tablet extended release 24hr 500 mg PO AC RF: 0 cholecalciferol (vitamin D3) [Vitamin D3] 2,000 UNIT capsule 2,000 unit PO DAILY RF: 0 atorvastatin [Lipitor] 40 MG tablet 40 mg PO HS RF: 0 aspirin [Ecotrin Low Strength] 81 MG tablet,delayed release (DR/EC) 81 mg PO HS RF: 0 acetaminophen [Tylenol] 325 MG tablet 325 - 650 mg PO Q4H PRN PRNQty: 0 RF: 0 Eliquis 5 MG tablet 5 mg PO BID Qty: 180 RF: 0 docusate sodium 100 MG capsule 100 mg PO DAILY RF: 0 lisinopril 5 MG tablet 10 mg PO DAILY RF: 0 loratadine 10 MG tablet 10 mg PO DAILY RF: 0 Spiriva with HandiHaler 1 PUFF capsule, w/inhalation device 1 cap Inhalation DAILY Qty: 30 RF: 1 Symbicort 10.2 GM HFA aerosol inhaler 1 puff Inhalation DAILY RF: 0 magnesium 200 mg Tablet 400 mg PO DAILY RF: 0 Eliquis 5 mg Tablet 5 mg PO BID RF: 0 diltiazem HCl 180 MG capsule,extended release 24hr 240 mg PO HS Qty: 0 RF: 0 Discharge Instructions Instructions: Fall Prevention for Older Adults (ED), Head Injury (ED) Additional Instructions: Hold your Eliquis dose tonight. If you develop any severe headache, visual changes, confusion, or neurologic deficit, return immediately to the emergency department. You can continue your Eliquis dosing tomorrow if you did not develop any severe symptoms. Please contact your primary care physician to arrange follow-up. Return to the ER for any worsening or new concerning symptoms. Referrals: Yohan Pino [Primary Care Provider] - Medical Decision Making 73-year-old male presents after mechanical trip and fall on ice with head trauma on Eliquis. Patient did not lose consciousness, does not of headache and is neurologically intact but feels a little bit disoriented and mildly dizzy. I considered acute life-threatening intracranial traumatic hemorrhage. CT of the head interpreted by radiology: Negative Usual customary discharge instructions were provided. HPI General Mode of arrival: ambulatory . Date/Time Provider Initiated Documentation: 04/19/18 11:01 . Limitations to Documentation: no limitations . Information obtained by: patient . HPI Narrative: 73-year-old male on Eliquis who presents after mechanical fall this morning with head trauma. Patient notes he slipped on ice in his driveway and fell back and hit the back of his head. He did not lose consciousness. He denies headache. He has no neck pain. He does feel little bit dizzy and disoriented. No visual changes. No chest pain or abdominal pain. NO hip pain. Related Data Home Medications Medication Instructions Recorded Confirmed aspirin [Ecotrin Low Strength] 81 mg PO HS 06/10/13 04/19/18 atorvastatin [Lipitor] 40 mg PO HS 06/10/13 04/19/18 albuterol sulfate 2 puff INHALATION Q6H PRN inhaler 07/03/14 04/19/18 blood sugar diagnostic [FreeStyle strip 07/03/14 09/19/16 Lite Strips] multivitamin [Daily Multi-Vitamin] 1 ea PO DAILY 07/03/14 04/19/18 nitroglycerin 0.4 mg SUBLINGUAL ONCE tab-cap 07/03/14 04/19/18 cholecalciferol (vitamin D3) 2,000 unit PO DAILY 08/16/14 04/19/18 [Vitamin D3] metformin 500 mg PO AC tab-cap 08/16/14 04/19/18 Eliquis 5 mg PO BID #180 tab 08/09/15 03/29/18 acetaminophen [Tylenol] 325 - 650 mg PO Q4H PRN PRN #0 tab 08/09/15 04/19/18 docusate sodium 100 mg PO DAILY 05/18/16 04/19/18 lisinopril 10 mg PO DAILY 05/18/16 04/19/18 loratadine 10 mg PO DAILY 05/18/16 04/19/18 Spiriva with HandiHaler 1 cap INHALATION DAILY #30 fariba 05/20/16 04/19/18 Symbicort 1 puff INHALATION DAILY 09/19/16 04/19/18 Eliquis 5 mg PO BID 03/29/18 04/19/18 magnesium 400 mg PO DAILY 03/29/18 04/19/18 diltiazem HCl 240 mg PO HS #0 cap 04/01/18 04/19/18 Previous Rx's Medication Instructions Recorded Eliquis 5 mg PO BID #180 tab 08/09/15 acetaminophen [Tylenol] 325 - 650 mg PO Q4H PRN PRN #0 tab 08/09/15 Spiriva with HandiHaler 1 cap INHALATION DAILY #30 fariba 05/20/16 diltiazem HCl 240 mg PO HS #0 cap 04/01/18 Allergies Allergy/AdvReac Type Severity Reaction Status Date / Time Sulfa (Sulfonamide Allergy Intermediate Skin Rash Unverified 09/19/16 12:11 Antibiotics) metoprolol AdvReac Severe BRADYCARDIA Unverified 09/19/16 12:11 General Stated Complaint: HeadInjury KODY: 3 Review of Systems Review of Systems All systems reviewed & are unremarkable except as noted in HPI and below PFSH Medical History Essential tremor (Chronic) Dyslipidemia (Chronic) Hypertension (Chronic) Diabetes mellitus (Chronic) COPD (chronic obstructive pulmonary disease) (Chronic) Atrial fibrillation (Chronic) SOB (shortness of breath) (Acute) CAD (coronary artery disease) (Chronic) Adenomatous polyps Coronary artery disease Diabetes mellitus type 2 in obese Hyperlipidemia Hypertension Sigmoid diverticulosis UTI (urinary tract infection) (08/04/14) Surgical History Hx of CABG (Chronic) Colonoscopy - IV Sedation (~2009) Coronary Artery Bypass Gaft (CABG) (10/04/14) Social History Smoking/Tobacco Use Status: Former Tobacco Use Exam Const General: cooperative and no acute distress HENMT Head: normocephalic and atraumatic Ears: external ear abnormal (rt with dired blood - pt notes picked scab and bled prior to fall) Mouth: moist mucous membranes Eyes Conjunctivae: normal conjunctivae Sclera: normal sclerae EOM: EOM intact bilaterally Neck Neck: full ROM, trachea midline, supple and nontender Resp Auscultation: clear to auscultation bilaterally, no rales, no rhonchi and no wheezes Cardio Jugular venous pressure: no JVD Rate: regular rate and not tachycardic Rhythm: regular rhythm GI Palpation: soft, not firm, no guarding, no masses, not rigid and nontender Skin General skin exam: no rashes or lesions noted Neuro General: alert, awake, oriented x3 and tone normal Cranial Nerves: CN's II-XI intact bilaterally Cognition: normal cognition Speech: speech normal Motor: muscle tone normal throughout and strength 5/5 throughout Sensory Exam: no sensory deficits noted Extrem General: no edema Psych Appearance: grossly normal Mental Status: mental status grossly normal Speech and Movement: speech and movement normal Course Vital Signs Temperature 36.5 C 04/19/18 11:06 Pulse 64 04/19/18 11:06 Respiratory Rate 17 04/19/18 11:06 Blood Pressure 129/83 04/19/18 11:06 Pulse Oximetry 98 04/19/18 11:06 Temperature 36.5 C 04/19/18 11:06 Temperature Source Temporal Artery Scan 04/19/18 11:06 Pulse 64 04/19/18 11:06 Respiratory Rate 17 04/19/18 11:06 Respiratory Effort Non-Labored 04/19/18 11:06 Blood Pressure 129/83 04/19/18 11:06 Blood Pressure Position Sitting 04/19/18 11:06 Pulse Oximetry 98 04/19/18 11:06 Oxygen Delivery Method Room Air 04/19/18 11:06 Oxygen Flow Rate 0 04/19/18 11:06 Pain Level 0 04/19/18 11:06
[2018-04-19 12:33] VITALS: BP 124/84; PULSE 63; RESP 18; TEMP 36.4; O2SAT 96
== END 2018-04-19 12:36 | disposition home or self-care (01) ==
PROVIDERS: Emergency Provider Student in an Organized Health Care Education/Training Program; PCP Family Medicine
DX: S09.90XA Unspecified injury of head, initial encounter (principal); R42 Dizziness and giddiness; R41.0 Disorientation, unspecified; W00.0XXA Fall on same level due to ice and snow, initial encounter; Z79.01 Long term (current) use of anticoagulants
CPT/HCPCS: 99284; 70450

== ENCOUNTER 2018-04-22 10:04 | Outpatient (CLI) | payer MEDICARE, BC, SELFPAY | END 2018-04-22 10:24 | PROVIDERS: PCP Family Medicine; Referring Provider Family Medicine; Visit Provider Internal Medicine Cardiovascular Disease | DX: I48.1 Persistent atrial fibrillation (principal) | CPT/HCPCS: 0298T ==

== ENCOUNTER 2018-04-29 03:43 | Outpatient (RCR) | payer SELFPAY | END 2018-05-26 23:59 | disposition home or self-care (01) | LOC: CR 03:43 | PROVIDERS: PCP Family Medicine; Visit Provider Family Medicine | DX: Z95.1 Presence of aortocoronary bypass graft (principal); Z51.89 Encounter for other specified aftercare ==

== ENCOUNTER 2018-05-28 07:55 | Outpatient (RCR) | payer SELFPAY | END 2018-06-26 23:59 | disposition home or self-care (01) | LOC: CR 07:55 | PROVIDERS: PCP Family Medicine; Visit Provider Family Medicine | DX: Z95.1 Presence of aortocoronary bypass graft (principal); Z51.89 Encounter for other specified aftercare ==

== ENCOUNTER 2018-06-27 06:00 | Outpatient (RCR) | payer SELFPAY | END 2018-07-26 23:59 | disposition home or self-care (01) | LOC: CR 06:00 | PROVIDERS: PCP Family Medicine; Visit Provider Family Medicine | DX: Z95.1 Presence of aortocoronary bypass graft (principal); Z51.89 Encounter for other specified aftercare ==

== ENCOUNTER 2018-07-27 05:04 | Outpatient (RCR) | payer SELFPAY | END 2018-08-26 23:59 | disposition home or self-care (01) | LOC: CR 05:04 | PROVIDERS: PCP Family Medicine; Visit Provider Family Medicine | DX: Z95.1 Presence of aortocoronary bypass graft (principal); Z51.89 Encounter for other specified aftercare ==

== ENCOUNTER 2018-08-28 03:56 | Outpatient (RCR) | payer SELFPAY | END 2018-09-25 23:59 | disposition home or self-care (01) | LOC: CR 03:56 | PROVIDERS: PCP Family Medicine; Visit Provider Family Medicine | DX: Z95.1 Presence of aortocoronary bypass graft (principal); Z51.89 Encounter for other specified aftercare ==

== ENCOUNTER 2018-09-26 13:46 | Outpatient (RCR) | payer SELFPAY | END 2018-10-26 23:59 | disposition home or self-care (01) | LOC: CR 13:46 | PROVIDERS: PCP Family Medicine; Visit Provider Family Medicine | DX: Z95.1 Presence of aortocoronary bypass graft (principal); Z51.89 Encounter for other specified aftercare ==

== ENCOUNTER 2018-10-27 05:37 | Outpatient (RCR) | payer SELFPAY | END 2018-11-26 23:59 | disposition home or self-care (01) | LOC: CR 05:37 | PROVIDERS: PCP Family Medicine; Visit Provider Family Medicine | DX: Z95.1 Presence of aortocoronary bypass graft (principal); Z51.89 Encounter for other specified aftercare ==

== ENCOUNTER 2018-11-27 03:38 | Outpatient (RCR) | payer SELFPAY ==
--- NOTE | 2019-02-06 13:19 | PR3E_ITS ---
73 year old male joined the maintenance phase of cardiac rehabilitation after completing Phase 2 for CAD s/p CABG 2014.. The patient attended classes regularly March -December 2017, infrequently to once a month and then stopped coming since September. Patient is being discharged from the program at this time. Will assist patient in re-enrolling in the program and obtaining proper referrals in the future should he want to return.
== END 2018-12-26 23:59 | disposition home or self-care (01) ==
LOC: CR 03:38
PROVIDERS: PCP Family Medicine; Visit Provider Family Medicine
DX: Z95.1 Presence of aortocoronary bypass graft (principal); Z51.89 Encounter for other specified aftercare

== ENCOUNTER 2019-02-14 10:12 | Outpatient (CLI) | payer MEDICARE, BC, SELFPAY ==
[2019-02-14 10:50] LABS: Anion Gap 8.7 mmol/L (3-11); BUN 22 mg/dL (7-18); CO2 27.3 mmol/L (21.0-32.0); CREATININE 1.09 mg/dL (0.70-1.30); Calcium 8.8 mg/dL (8.5-10.1); Chloride 102 mmol/L (98-107); Glucose 137 mg/dL (70-100); Potassium 4.1 mmol/L (3.5-5.1); Sodium 138 mmol/L (136-145)
== END 2019-02-14 10:32 ==
PROVIDERS: PCP Family Medicine
DX: I50.9 Heart failure, unspecified (principal)
CPT/HCPCS: 36415; 80048

== ENCOUNTER 2019-02-15 11:33 | Outpatient (CLI) | payer MEDICARE, BC, SELFPAY ==
[2019-02-15 14:31] LABS: Magnesium 2.2 mg/dL (1.8-2.4); Troponin I < 0.05 ng/Ml (<0.06)
[2019-02-15 14:47] LABS: Anion Gap 6.5 mmol/L (3-11); BUN 27 mg/dL (7-18); CO2 29.5 mmol/L (21.0-32.0); CREATININE 1.12 mg/dL (0.70-1.30); Calcium 9.3 mg/dL (8.5-10.1); Chloride 101 mmol/L (98-107); Glucose 167 mg/dL (74-106); Potassium 4.3 mmol/L (3.5-5.1); Sodium 137 mmol/L (136-145)
== END 2019-02-15 11:53 ==
PROVIDERS: PCP Family Medicine; Visit Provider Family Medicine
DX: R07.9 Chest pain, unspecified (principal); I25.10 Atherosclerotic heart disease of native coronary artery without angina pectoris
CPT/HCPCS: 36415; 80048; 83735; 84484

== ENCOUNTER 2019-02-27 09:23 | Outpatient (CLI) | payer MEDICARE, BC, SELFPAY ==
[2019-02-27 10:10] LABS: Anion Gap 9.7 mmol/L (3-11); BUN 27 mg/dL (7-18); CO2 25.3 mmol/L (21.0-32.0); CREATININE 1.07 mg/dL (0.70-1.30); Calcium 8.9 mg/dL (8.5-10.1); Chloride 102 mmol/L (98-107); Glucose 140 mg/dL (74-106); Potassium 4.1 mmol/L (3.5-5.1); Sodium 137 mmol/L (136-145)
== END 2019-02-27 09:43 ==
PROVIDERS: PCP Family Medicine
DX: I50.9 Heart failure, unspecified (principal)
CPT/HCPCS: 36415; 80048

== ENCOUNTER 2019-03-20 07:58 | Outpatient (CLI) | payer MEDICARE, BC, SELFPAY ==
[2019-03-20 09:20] LABS: Anion Gap 6.7 mmol/L (3-11); BUN 26 mg/dL (7-18); CO2 27.3 mmol/L (21.0-32.0); CREATININE 1.02 mg/dL (0.70-1.30); Calcium 9.1 mg/dL (8.5-10.1); Chloride 104 mmol/L (98-107); Glucose 149 mg/dL (74-106); Potassium 4.5 mmol/L (3.5-5.1); Sodium 138 mmol/L (136-145)
== END 2019-03-20 08:18 ==
PROVIDERS: PCP Family Medicine
DX: I50.9 Heart failure, unspecified (principal)
CPT/HCPCS: 36415; 80048

== ENCOUNTER 2019-09-06 13:27 | Emergency (ER) | payer MEDICARE, BC, SELFPAY ==
[2019-09-06] VITALS (54 sets, daily range): BP systolic 106–137; BP diastolic 48–84; PULSE 61–86; RESP 10–26; TEMP 36.7; O2SAT 84–98
--- NOTE | 2019-09-06 13:33 | ED.GENADUL_ITS ---
Discharge Plan Disposition Patient Disposition: HOME Condition: Improving Discharge Details Chief Complaint: SOB Clinical Impression: Dyspnea Primary Care Provider: Yohan Pino ED Provider: Ban Navarro Home Meds and New Rx's Prescriptions: Continued multivitamin [Daily Multi-Vitamin] 1 EACH tablet 1 ea PO DAILY RF: 0 (DME) blood sugar diagnostic [FreeStyle Lite Strips] 1 EACH strip 1 ea Miscellaneous DIRECTED RF: 0 albuterol sulfate 8.5 GM HFA aerosol inhaler 2 puff Inhalation Q6H PRN RF: 0 nitroglycerin 0.4 MG tablet, sublingual 0.4 mg Sublingual ONCE RF: 0 metformin 500 MG tablet extended release 24hr 500 mg PO AC RF: 0 cholecalciferol (vitamin D3) [Vitamin D3] 2,000 UNIT capsule 2,000 unit PO DAILY RF: 0 atorvastatin [Lipitor] 40 MG tablet 40 mg PO HS RF: 0 aspirin [Ecotrin Low Strength] 81 MG tablet,delayed release (DR/EC) 81 mg PO HS RF: 0 acetaminophen [Tylenol] 325 MG tablet 325 - 650 mg PO Q4H PRN PRNQty: 0 RF: 0 Eliquis 5 MG tablet 5 mg PO BID Qty: 180 RF: 0 docusate sodium 100 MG capsule 100 mg PO DAILY RF: 0 lisinopril 5 MG tablet 10 mg PO DAILY RF: 0 loratadine 10 MG tablet 10 mg PO DAILY RF: 0 Spiriva with HandiHaler 1 PUFF capsule, w/inhalation device 1 cap Inhalation DAILY Qty: 30 RF: 1 Symbicort 10.2 GM HFA aerosol inhaler 1 puff Inhalation DAILY RF: 0 magnesium 200 mg Tablet 400 mg PO DAILY RF: 0 Eliquis 5 mg Tablet 5 mg PO BID RF: 0 diltiazem HCl 180 MG capsule,extended release 24hr 240 mg PO HS Qty: 0 RF: 0 Discharge Instructions Instructions: Dyspnea (ED) Additional Instructions: Drink plenty of fluids and get plenty of rest. Take your regular medications as directed. Call your primary care doctor tomorrow to schedule a follow-up appointment for reevaluation and for referral for outpatient stress test. Discharge Data Discharge Date/Time-TO BE ENTERED AT DEPARTURE: 09/06/19 19:46 Discharge Physician: Ban Navarro Medical Decision Making [id number] -- 74-year-old male with a history of atrial fibrillation on Eliquis, hypertension, hyperlipidemia, diabetes, COPD, CAD, CHF presents with shortness of breath that occurred with exertion today followed by dizziness. O2 sat 94% on room air. Afebrile. He appears nontoxic. He has diminished breath sounds throughout. Differential diagnosis includes acute COPD exacerbation, acute CHF exacerbation, pneumonia, ACS. History and presentation not consistent with PE or dissection. Will obtain labs, cxr and give neb and reassess. 1650 -- labs and imaging reviewed and unremarkable. White blood cell count 11. Troponin negative. BNP normal. Chest x-ray negative. pt reassessed -no change in shortness of breath. Lung sounds improved. O2 sat mid 90s on room air. He admits to pleuritic right-sided chest pain. Chest nontender. Will obtain a CT chest to rule out PE as well as second troponin and EKG and give another neb. 1849 --repeat troponin negative. Repeat EKG unchanged. CT chest negative for any acute findings. Patient was able to ambulate and states he feels better. Denies chest pain. Lung sounds improved. Oxygen saturation 94% which he states is his baseline. He was able to ambulate without difficulty or shortness of breath. Patient is requesting to go home. As patient has no noted wheezing, fever, or productive cough, do not see an indication for antibiotics or steroids. He is advised to call his PCP for follow-up and for outpatient stress test. Usual and customary return precautions given prior to discharge. Medical Records Medical records reviewed: Yes I reviewed the patient's medical records. Imaging Data Radiologic Study: Radiologist's impression: XR PORTABLE CHEST AP CLINICAL HISTORY: cough, sob, r/o acute disease TECHNIQUE: 2D digital imaging was performed. COMPARISON: CR XR CHEST 2V PA LATERAL from 03/29/2018 FINDINGS: MEDIASTINUM: Normal. HEART: Normal. Prior CABG. PULMONARY VASCULATURE: Normal. LUNGS: Atelectasis is seen in the left lung base. No focal consolidating infiltrates are present. PLEURAL SPACE: No pleural effusion or pneumothorax. BONE:Normal. OTHER FINDINGS:Normal. IMPRESSION: No acute pulmonary findings. CT Angiography Chest With Contrast Exam date and time: 09/06/2019 5:59 PM Age: 74 years old Clinical indication: Other: Pleuritic chest pain, R/O pe TECHNIQUE: Imaging protocol: Computed tomographic angiography of the chest with intravenous contrast. 3D rendering: MIP and/or 3D reconstructed images were created by the technologist. Radiation optimization: All CT scans at this facility use at least one of these dose optimization techniques: automated exposure control; mA and/or kV adjustment per patient size (includes targeted exams where dose is matched to clinical indication); or iterative reconstruction. Contrast material: OMNIPAQUE 350; Contrast volume: 78 ml; Contrast route: IV; COMPARISON: CR XR PORTABLE CHEST AP 09/06/2019 2:45 PM FINDINGS: Pulmonary arteries: No acute pulmonary embolus. Aorta: No aortic aneurysm. No aortic dissection. Lungs: Emphysematous changes of the lungs. Pleural space: Unremarkable. No pneumothorax. No pleural effusion. Heart: CABG. Coronary artery calcifications. Lymph nodes: No enlarged lymph nodes. Bones/joints: Sternotomy. Soft tissues: Unremarkable. IMPRESSION: No acute pulmonary embolus. Lab Data Lab results reviewed: Yes I reviewed the patient's lab results. Labs: Laboratory Tests Range/Units 09/06/19 09/06/19 09/06/19 13:57 13:57 17:55 WBC (4.4-10.8) k/cumm 11.01 H RBC (4.50-6.00) m/cumm 4.88 Hgb (13.5-17.5) g/dL 14.6 Hct (40.0-50.0) % 42.2 MCV (80-95) fL 86.5 MCH (27.0-33.0) pg 29.9 MCHC (32.0-36.0) g/dL 34.6 RDW (11.8-14.1) % 13.6 Plt Count (130-400) x1000/uL 230 MPV (8.0-11.0) fL 9.5 Immature Gran % % 0.3 Neutrophils % 76.0 Lymphocytes % 14.8 Monocytes % 7.6 Eosinophils % 1.2 Basophils % 0.1 Absolute Neutrophils (1.2-6.7) k/cumm 8.37 H Absolute Lymphocytes (1.2-3.4) k/cumm 1.63 Absolute Monocytes (0.11-0.7) k/cumm 0.84 H Absolute Eosinophils (0.0-0.7) k/cumm 0.13 Absolute Basophils (0.0-0.2) k/cumm 0.01 Sodium (136-145) mmol/L 136 Potassium (3.5-5.1) mmol/L 4.1 Chloride (98-107) mmol/L 102 Carbon Dioxide (21.0-32.0) mmol/L 25.0 Anion Gap (3-11) mmol/L 9.0 BUN (7-18) mg/dL 28 H Creatinine (0.70-1.30) mg/dL 1.17 Estimated GFR/1.73 m2 (mL/min/1.73m2) >= 60.00 Glucose (74-106) mg/dL 123 H Calcium (8.5-10.1) mg/dL 8.9 Magnesium (1.8-2.4) mg/dL 2.2 Total Bilirubin (0.2-1.0) mg/dL 1.2 H AST (15-37) U/L 25 ALT (16-63) U/L 40 Alkaline Phosphatase (46-116) U/L 65 Troponin I (<0.06) ng/mL < 0.05 < 0.05 NT-Pro-B Natriuret Pep (<300) pg/mL 95 Total Protein (6.4-8.2) g/dL 7.1 Albumin (3.4-5.0) g/dL 3.8 ECG Data Attestation: I personally reviewed and interpreted this ECG (s) as follows: Interpretation: Rate of 70, sinus, left anterior fascicular block. No acute change from previous EKG. No acute ST elevation or depression. OR 184. QTc 425. QRS 143. Rate of 71, sinus, left anterior fascicular block. Occasional PVCs. No acute change from previous EKG. No acute ST elevation or depression. OR 180. QTc 439. QRS 144. HPI General Mode of arrival: ambulatory . Date/Time Provider Initiated Documentation: 09/06/19 13:28 . Limitations to Documentation: no limitations . Information obtained by: patient . HPI Narrative: Patient is a 74-year-old male with history of atrial fibrillation on Eliquis, coronary artery disease, COPD, diabetes, hypertension, hyperlipidemia, CABG who presents to the ED with a complaint of shortness of breath this morning while loading his truck. He states he was lifting approximately 50 pounds which is not heavy for him. He denies any chest pain, fever, cough, vomiting. He does admit to a brief episode of dizziness that occurred when standing after the shortness of breath started. He admits to some mild shortness of breath at present but denies any dizziness. He states he used his inhaler without relief. Related Data Home Medications Medication Instructions Recorded Confirmed aspirin [Ecotrin Low Strength] 81 mg PO HS 06/10/13 04/19/18 atorvastatin [Lipitor] 40 mg PO HS 06/10/13 04/19/18 albuterol sulfate 2 puff INHALATION Q6H PRN inhaler 07/03/14 04/19/18 blood sugar diagnostic [FreeStyle strip 07/03/14 09/19/16 Lite Strips] multivitamin [Daily Multi-Vitamin] 1 ea PO DAILY 07/03/14 04/19/18 nitroglycerin 0.4 mg SUBLINGUAL ONCE tab-cap 07/03/14 04/19/18 cholecalciferol (vitamin D3) 2,000 unit PO DAILY 08/16/14 04/19/18 [Vitamin D3] metformin 500 mg PO AC tab-cap 08/16/14 04/19/18 Eliquis 5 mg PO BID #180 tab 08/09/15 03/29/18 acetaminophen [Tylenol] 325 - 650 mg PO Q4H PRN PRN #0 tab 08/09/15 04/19/18 docusate sodium 100 mg PO DAILY 05/18/16 04/19/18 lisinopril 10 mg PO DAILY 05/18/16 04/19/18 loratadine 10 mg PO DAILY 05/18/16 04/19/18 Spiriva with HandiHaler 1 cap INHALATION DAILY #30 fariba 05/20/16 04/19/18 Symbicort 1 puff INHALATION DAILY 09/19/16 04/19/18 Eliquis 5 mg PO BID 03/29/18 04/19/18 magnesium 400 mg PO DAILY 03/29/18 04/19/18 diltiazem HCl 240 mg PO HS #0 cap 04/01/18 04/19/18 Previous Rx's Medication Instructions Recorded Eliquis 5 mg PO BID #180 tab 08/09/15 acetaminophen [Tylenol] 325 - 650 mg PO Q4H PRN PRN #0 tab 08/09/15 Spiriva with HandiHaler 1 cap INHALATION DAILY #30 fariba 05/20/16 diltiazem HCl 240 mg PO HS #0 cap 04/01/18 Allergies Allergy/AdvReac Type Severity Reaction Status Date / Time Sulfa (Sulfonamide Allergy Intermediate Skin Rash Unverified 09/06/19 13:44 Antibiotics) metoprolol AdvReac Severe BRADYCARDIA Unverified 09/06/19 13:44 General KODY: 3 Review of Systems All systems reviewed & are unremarkable except as noted in HPI and below Constitutional Constitutional: Reports as per HPI, Denies chills and Denies fever(s) Eyes Eyes: Denies blurry vision ENT Ears, Nose, Mouth, and Throat: Denies dizziness, Denies sore throat and Denies throat swelling Cardiovascular Cardiovascular: Denies chest pain and Reports dyspnea Respiratory Respiratory: Denies cough and Reports dyspnea Gastrointestinal Gastrointestinal: Denies abdominal pain, Denies diarrhea and Denies vomiting Genitourinary Genitourinary: Denies hematuria and Denies dysuria Musculoskeletal Musculoskeletal: Denies back pain and Denies numbness Integumentary/Breasts Skin/Breast: Denies lesions and Denies rash Neurologic Neurologic: Denies dizziness, Denies localized weakness and Denies numbness Allergic/Immunologic Allergic/Immunologic: Denies throat swelling PFSH Social History Smoking/Tobacco Use Status: Former Tobacco Use Alcohol Intake: never Drug use: Never Substance use type: does not use Do you feel safe at home: Yes Exam Const General: cooperative, healthy appearing and no acute distress HENMT Head: normal to inspection Face and sinus: normal facial exam Eyes General: appearance normal, both eyes and all related structures Pupils: PERRL EOM: EOM intact bilaterally Neck Neck: normal visual inspection and No submandibular swelling Lymphatic: no lymphadenopathy noted Chest Chest: normal inspection of the chest and no tenderness Resp Effort & Inspection: normal respiratory effort and able to speak in complete sentences Auscultation: diminished lung sounds bilaterally throughout Cardio Rate: regular rate Rhythm: regular rhythm GI Inspection: normal to inspection Palpation: soft, not firm, not rigid and nontender Auscultation: normal bowel sounds Skin General skin exam: no rashes or lesions noted Neuro General: patient alert, patient awake and patient oriented x3 Cognition: normal cognition Speech: speech normal Motor: muscle tone normal throughout Sensory Exam: no sensory deficits noted Extrem General: normal to inspection, full ROM, capillary refill normal, no calf tenderness bilaterally and no edema Psych Appearance: grossly normal Mental Status: mental status grossly normal Speech and Movement: speech and movement normal Affect: normal affect
[2019-09-06 14:25] LABS: ALT 40 U/L (16-63); AST 25 U/L (15-37); Albumin 3.8 g/dL (3.4-5.0); Alkaline Phosphatase 65 U/L (46-116); BUN 28 mg/dL (7-18); Bilirubin, Total 1.2 mg/dL (0.2-1.0); CREATININE 1.17 mg/dL (0.70-1.30); Calcium 8.9 mg/dL (8.5-10.1); Chloride 102 mmol/L (98-107); Glucose 123 mg/dL (74-106); Magnesium 2.2 mg/dL (1.8-2.4); NT-proBNP 95 pg/mL (<300); Potassium 4.1 mmol/L (3.5-5.1); Sodium 136 mmol/L (136-145); Total Protein 7.1 g/dL (6.4-8.2)
[2019-09-06 14:26] LABS: Abs Immature Grans 0.03 k/cumm (0.0-0.09); Absolute Basophil Count 0.01 k/cumm (0.0-0.2); Absolute Eosinophil Count 0.13 k/cumm (0.0-0.7); Absolute Lymphocyte Count 1.63 k/cumm (1.2-3.4); Absolute Monocyte Count 0.84 k/cumm (0.11-0.7); Absolute Neutrophil Count 8.37 k/cumm (1.2-6.7); Basophils % 0.1; Eosinophils % 1.2; HCT 42.2 % (40.0-50.0); HGB 14.6 g/dL (13.5-17.5); Immature Grans % 0.3 %; Lymphocytes % 14.8; Mean Corp. HGB Concentration 34.6 g/dL (32.0-36.0); Mean Corpuscular Hemoglobin 29.9 pg (27.0-33.0); Mean Corpuscular Volume 86.5 fL (80-95); Mean Platelet Volume 9.5 fL (8.0-11.0); Monocytes % 7.6; Platelet Count 230 x1000/uL (130-400); RBC 4.88 m/cumm (4.50-6.00); RBC Distribution Width 13.6 % (11.8-14.1); Troponin I < 0.05 ng/mL (<0.06); White Blood Cell Count 11.01 k/cumm (4.4-10.8)
--- NOTE | 2019-09-06 15:03 | DI.RAD_ITS ---
EXAM: XR PORTABLE CHEST AP CLINICAL HISTORY: cough, sob, r/o acute disease TECHNIQUE: 2D digital imaging was performed. COMPARISON: CR XR CHEST 2V PA LATERAL from 03/29/2018 FINDINGS: MEDIASTINUM: Normal. HEART: Normal. Prior CABG. PULMONARY VASCULATURE: Normal. LUNGS: Atelectasis is seen in the left lung base. No focal consolidating infiltrates are present. PLEURAL SPACE: No pleural effusion or pneumothorax. BONE:Normal. OTHER FINDINGS:Normal. IMPRESSION: No acute pulmonary findings. DATA REPOSITORY: RADIATION DOSE DELIVERED:
[2019-09-06] MEDS: Albuterol/Ipratropium 3 ML UPD VIAL UPD ×2 (15:10→17:45)
--- NOTE | 2019-09-06 16:56 | DI.CT_ITS ---
EXAM: CT CHEST PE CTA CLINICAL HISTORY: pleuritic chest pain, r/o PE. TECHNIQUE: Imaging Protocol: Axial CT angiography was performed with multi-slice acquisition and mu lti-planar and/or 3D reconstructions. CONTRAST MATERIAL: Intravenous: Omnipaque 350 Contrast volume:structured data in ml Intravenous: Omnipaque 350 Contrast volume:78 mL COMPARISON: CT UPPER ABD WITH CONTRAST (P) from 04/12/2008 FINDINGS: Pulmonary Arteries: No evidence of filling defect to suggest pulmonary emboli. Tracheobronchial tree: Patent where visualized. Mediastinum and Cookie: No dominant adenopathy or fluid collection. Pulmonary parenchyma: Centrilobular emphysematous changes are present in the lungs. 5 mm pulmonary n odule is seen in the left lower lobe. Dependent atelectatic changes are seen in the lungs. Pleura: No effusion or pneumothorax. Heart: The heart is not dilated. Coronary artery calcifications. Status post CABG. Aorta: Thoracic aorta non-dilated. Atherosclerosis. No evidence of dissection or aneurysm. Upper abdomen: Stable cyst in the liver. Bones: Status post sternotomy. Degenerative changes in the spine. IMPRESSION: 1. No evidence of pulmonary embolus, thoracic aortic dissection or aneurysm. 2. 5 mm pulmonary nodule in the left lower lobe. In high risk patients, a follow-up CT scan in 12 mo nths is recommended for re-evaluation. Please correlate with the patient's past medical history. RADIATION DOSE DELIVERED: 413.29mGy.cm Total DLP 413.29mGy.cm Total DLP 413.29mGy.cm Total DLP DATA REPOSITORY: All CT scans at this facility are submitted to the National Radiology Data Registry (NRDR) Dose Index Registry (DIR) with the [employer] ([employer]). RADIATION OPTIMIZATION: All CT scans at this facility use at least one of these dose optimization te chniques: automated exposure control; mA and/or kV adjustment per patient size (includes targeted exa ms where dose is matched to clinical indication); or iterative reconstruction.
[2019-09-06] MEDS: Omnipaque 350 MG/ML 100 ML BTL IJ (18:03)
[2019-09-06] MEDS: Normal Saline - Diluent 50 ML VIAL IV (18:03)
[2019-09-06] MEDS: Normal Saline Flush 10 ML SYR IVP (18:04)
[2019-09-06 18:18] LABS: Troponin I < 0.05 ng/mL (<0.06)
--- NOTE | 2019-09-06 18:47 | DI.VRAD_ITS ---
PROCEDURE INFORMATION: Exam: CT Angiography Chest With Contrast Exam date and time: 09/06/2019 5:59 PM Age: 74 years old Clinical indication: Other: Pleuritic chest pain, R/O pe TECHNIQUE: Imaging protocol: Computed tomographic angiography of the chest with intravenous contrast. 3D rendering: MIP and/or 3D reconstructed images were created by the technologist. Radiation optimization: All CT scans at this facility use at least one of these dose optimization techniques: automated exposure control; mA and/or kV adjustment per patient size (includes targeted exams where dose is matched to clinical indication); or iterative reconstruction. Contrast material: OMNIPAQUE 350; Contrast volume: 78 ml; Contrast route: IV; COMPARISON: CR XR PORTABLE CHEST AP 09/06/2019 2:45 PM FINDINGS: Pulmonary arteries: No acute pulmonary embolus. Aorta: No aortic aneurysm. No aortic dissection. Lungs: Emphysematous changes of the lungs. Pleural space: Unremarkable. No pneumothorax. No pleural effusion. Heart: CABG. Coronary artery calcifications. Lymph nodes: No enlarged lymph nodes. Bones/joints: Sternotomy. Soft tissues: Unremarkable. IMPRESSION: No acute pulmonary embolus. Dictated and Authenticated by: Tu Thomas MD. Ordering:FRANCIS Cevallos MD
== END 2019-09-06 19:46 | disposition home or self-care (01) ==
PROVIDERS: Emergency Provider Physician Assistant; PCP Family Medicine
DX: R06.00 Dyspnea, unspecified (principal); R07.81 Pleurodynia; I48.91 Unspecified atrial fibrillation; Z79.01 Long term (current) use of anticoagulants; J44.9 Chronic obstructive pulmonary disease, unspecified; Z87.891 Personal history of nicotine dependence; I11.0 Hypertensive heart disease with heart failure; I50.9 Heart failure, unspecified; E11.9 Type 2 diabetes mellitus without complications; Z79.84 Long term (current) use of oral hypoglycemic drugs
CPT/HCPCS: 36415; 71275; 80053; 93005; 94640; 99285; 71045; 83735; 83880; 84484; 85025; 93010; J3490; J7620

== ENCOUNTER 2020-10-01 16:09 | Outpatient (REF) | payer MEDICARE, BC, SELFPAY ==
[2020-10-01 14:24] LABS: ALT 36 U/L (16-63); AST 12 U/L (15-37); Albumin 4.1 g/dL (3.4-5.0); Alkaline Phosphatase 66 U/L (46-116); Anion Gap 10.6 mmol/L (3-11); BUN 29 mg/dL (7-18); Bilirubin, Total 0.9 mg/dL (0.2-1.0); CO2 25.4 mmol/L (21.0-32.0); CREATININE 1.3 mg/dL (0.70-1.30); Calcium 9.5 mg/dL (8.5-10.1); Calculated LDL 98 mg/dL (<100); Chloride 102 mmol/L (98-107); Cholesterol 199 mg/dL (<200); Estimated GFR 53.53 (mL/min/1.73m2); Glucose 141 mg/dL (74-106); HDL Cholesterol 46 mg/dL (40-60); Magnesium 2.1 mg/dL (1.8-2.4); Potassium 4.9 mmol/L (3.5-5.1); Sodium 138 mmol/L (136-145); Total Protein 7.3 g/dL (6.4-8.2); Triglyceride 277 mg/dL (<150)
[2020-10-02 12:36] LABS: Hepatitis C Ab w Rflx HCV PCR Negative (Negative)
== END 2020-10-01 16:10 | disposition home or self-care (01) ==
LOC: LBN 16:09
PROVIDERS: PCP Family Medicine; Visit Provider Family Medicine
DX: E83.42 Hypomagnesemia (principal); E11.9 Type 2 diabetes mellitus without complications; Z11.59 Encounter for screening for other viral diseases; I25.10 Atherosclerotic heart disease of native coronary artery without angina pectoris
CPT/HCPCS: 80053; 80061; 86803; 83735

== ENCOUNTER 2021-01-24 01:33 | Outpatient (CLI) | payer MEDICARE, BC, SELFPAY ==
[2021-01-24 10:27] LABS: Source Nasal/Nares
[2021-01-24 13:32] LABS: COVID-19 PCR Negative (Negative)
== END 2021-01-24 01:34 | disposition home or self-care (01) ==
LOC: LBO 01:33
PROVIDERS: PCP Family Medicine; Visit Provider Ophthalmology
DX: Z20.822 Contact with and (suspected) exposure to COVID-19 (principal); Z01.818 Encounter for other preprocedural examination
CPT/HCPCS: 87635

== ENCOUNTER 2021-01-27 06:28 | Day surgery (SDC) | payer MEDICARE, BC, SELFPAY ==
[2021-01-27 06:47] VITALS: BP 113/73; PULSE 67; RESP 18; TEMP 36.5; O2SAT 95
[2021-01-27] MEDS: Tropicam./Phenyleph. (1/2.5%) 5 ML BTL OD ×3 (06:57→07:07)
--- NOTE | 2021-01-27 07:08 | W.ANESPRE ---
General Info Date of Service Date Performed: 01/27/21 Height: 5 ft 10 in Weight: 93.7 kg Body Mass Index (BMI): 29.6 Surgical Procedure: Operation Date: 01/27/21 07:40 Proposed Procedures Side Surgeon p Cataract Extraction with IOL Implant Right Rodri Cortez MD Meds Allergies and Home Medications Allergies Allergy/AdvReac Type Severity Reaction Status Date / Time Sulfa (Sulfonamide Allergy Intermediate Skin Rash Unverified 01/27/21 06:39 Antibiotics) metoprolol AdvReac Severe BRADYCARDIA Unverified 01/27/21 06:39 Home Medication Medication Instructions Recorded aspirin [Ecotrin Low Strength] 81 mg PO HS 06/10/13 atorvastatin [Lipitor] 40 mg PO HS 06/10/13 FreeStyle Lite Strips strip 07/03/14 albuterol sulfate 2 puff INHALATION Q6H PRN inhaler 07/03/14 multivitamin [Daily Multi-Vitamin] 1 ea PO DAILY 07/03/14 nitroglycerin 0.4 mg SUBLINGUAL ONCE tab-cap 07/03/14 cholecalciferol (vitamin D3) 2,000 unit PO DAILY 08/16/14 [Vitamin D3] metformin 500 mg PO AC tab-cap 08/16/14 acetaminophen [Tylenol] 325 - 650 mg PO Q4H PRN PRN #0 tab 08/09/15 docusate sodium 100 mg PO DAILY 05/18/16 lisinopril 10 mg PO DAILY 05/18/16 loratadine 10 mg PO DAILY 05/18/16 Spiriva with HandiHaler 1 cap INHALATION DAILY #30 fariba 05/20/16 Eliquis 5 mg PO BID 03/29/18 magnesium 400 mg PO DAILY 03/29/18 clotrimazole 1 % topical solution 1 applic TOPICAL BID 10/31/20 empagliflozin 10 mg tablet 10 mg PO DAILY 10/31/20 fluticasone furoate 100 1 inh INHALATION DAILY 10/31/20 mcg-vilanterol 25 mcg/dose inhalation powder sennosides 8.6 mg tablet 17.2 mg PO DAILY tab 10/31/20 spironolactone 25 mg tablet 25 mg PO DAILY 10/31/20 triamcinolone acetonide 0.1 % 1 applic TOPICAL BID 10/31/20 topical cream Current Visit Medications: Current Medications Generic Name Dose Route Start Last Admin Trade Name Freq PRN Reason Stop Dose Admin Acetaminophen 1,000 mg 01/27/21 06:00 Acetaminophen 500 Mg Tab PO Q4H PRN PRN Miscellaneous Medication 0 ml 01/27/21 06:00 Prednisolone 1%, Moxifloxacin 0.5%, Nepafenac 0.1% 5ml Btl OD DIRECTED [facility] Miscellaneous Medication 0 ml 01/27/21 06:00 01/27/21 07:07 Tropicam./Phenyleph. (1/2.5%) 5 Ml Btl OD 1 drp DIRECTED JOSE LUIS Administration Tetracaine HCl 0 ml 01/27/21 06:00 Tetracaine 0.5% 4 Ml Btl OD DIRECTED [facility] PFSH Active Problems Active Problems: Problem Status Onset Code Posterior subcapsular age-related cataract, right eye H25.041 Nuclear sclerotic cataract of right eye H25.11 Rapid atrial fibrillation I48.91 COPD with bronchial hyperresponsiveness J44.1 Leukocytosis D72.829 CHF (congestive heart failure) I50.9 DVT prophylaxis Sensorineural hearing loss of both ears H90.3 Sensorineural hearing loss, bilateral H90.3 History of excessive cerumen Z78.9 Vitamin D deficiency E55.9 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 Hypomagnesemia E83.42 Sciatica of right side M54.31 Sleep apnea G47.30 Ischemic cardiomyopathy I25.5 Balanitis N48.1 Venous insufficiency I87.2 Essential tremor G25.0 Dyslipidemia E78.5 Hypertension I10 Hx of CABG Z95.1 Diabetes mellitus E11.9 COPD (chronic obstructive pulmonary disease) J44.9 Atrial fibrillation I48.91 SOB (shortness of breath) R06.02 CAD (coronary artery disease) I25.10 Medical History Medical History (Updated 01/23/21 @ 20:44 by Rodri Cortez MD) Adenomatous polyps ASCVD (arteriosclerotic cardiovascular disease) Atrial fibrillation Atrial flutter Balanitis CAD (coronary artery disease) COPD (chronic obstructive pulmonary disease) Coronary artery disease Diabetes mellitus Diabetes mellitus type 2 in obese Dyslipidemia Essential tremor Hampton syndrome Hyperlipidemia Hypertension Hypertension Hypomagnesemia Ischemic cardiomyopathy Sciatica of right side Sigmoid diverticulosis Sleep apnea SOB (shortness of breath) UTI (urinary tract infection) (08/04/14) Venous insufficiency Vitamin D deficiency Surgical History Surgical History Colonoscopy - IV Sedation (~2009) Coronary Artery Bypass [place] (CABG) (10/04/14) Hx of CABG Hx of tonsillectomy Tobacco Smoking/Tobacco Use Status: Former Tobacco Use Alcohol Alcohol Intake: never Substance Use Substance use: Never Substance use type: does not use Vital Signs and Lab Results Vital Signs Most Recent Vital Signs in EMR: Most Recent Vital Signs Temp Pulse Resp BP Pulse Ox 36.5 C 67 18 113/73 95 01/27/21 06:47 01/27/21 06:47 01/27/21 06:47 01/27/21 06:47 01/27/21 06:47 Lab Results Blood Type / Crossmatch: No Data to Display Complete Blood Count: No Data to Display Complete Metabolic Panel: No Data to Display Liver Function Panel: No Data to Display Coagulation Panel: No Data to Display Cardiac Panel: No Data to Display Arterial Blood Gas: No Data to Display Venous Blood Gas: No Data to Display Pancreas Panel: No Data to Display Thyroid Panel: No Data to Display Infectious Disease: Coronavirus (COVID-19)(PCR) Negative (Negative) 01/24/21 09:35 01/24/21 Coronavirus 2019 Source Nasal/Nares 01/24/21 09:35 01/24/21 Blood Cultures: No Data to Display Toxicology Panel: No Data to Display Imaging and Studies Imaging and Studies Stress Test Summary: Impressions: - Normal perfusion by [id number] Sestamibi Imaging. - Abnormal contraction consistent with cardiomyopathy. Summary: 1. Myocardial perfusion imaging: No myocardial perfusion defects noted. 2. The calculated left ventricular ejection fraction after stress: 20%. Gated images sub-optimal due to atrial flutter and motion artifact. Estimated EF not accurate. LV global systolic function is severely reduced. 04/01/18 Echocardiogram Summary: Impressions: The patient was in atrial fibrillation throughout study. This rhythm can interfere with accurate global and segmental wall motion analysis. Summary: 1. Left ventricle: The cavity size was mildly dilated. Wall thickness was increased in a pattern of moderate LVH. Systolic function was moderately reduced. The estimated ejection fraction was 35-40%. Diffuse hypokinesis. 2. Ventricular septum: Septal motion showed paradoxical motion consistent with Bundle Branch Block. 3. Aortic valve: Trileaflet; mildly calcified leaflets. There was mild regurgitation. 4. Aorta: There was mild to moderate dilation, extending from the root to the proximal ascending aorta. The maximal diameter was 4.0cm. 5. Mitral valve: There was mild regurgitation. 6. Left atrium: The atrium was dilated. 7. Right ventricle: The cavity size was normal. Wall thickness was normal. Systolic function was normal. 8. Right atrium: The atrium was dilated. 9. Tricuspid valve: There was mild-moderate regurgitation. 10. Pulmonary arteries: Pulmonary systolic pressure was increased, in the range of 35mm Hg to 40mm Hg. 03/30/18 Pulmonary Function Summary: INTERPRETATION OF STUDY: Spirometry shows severe obstructive airways disease with significant bronchodilator response. LUNG VOLUMES: Lung volumes show no evidence of restriction. DIFFUSION CAPACITY: Moderately reduced, which is mildly reduced when corrected to alveolar volume. AIRWAY RESISTANCE: Elevated. 04/01/15 Anesthesia Assessment and Plan Anesthesia History Personal History: No History of Anesthesia Complications Family History: No Family History of Anesthesia Complications Exercise Tolerance Exercise Tolerance: Metabolic Equivalents>4 Pertinent Negatives Pertinent Negatives: No Major Cardiovascular Symptoms or Complaints Cardiac & Pulmonary Exam Cardiac Exam: Normal S1/S2 Heart Sounds Pulmonary Exam: Clear Bilateral Breath Sounds Airway Exam Known Difficult Airway: No Mallampati Class: 1 Mouth Opening: Normal (> 3cm) Thyromental Distance: Greater than 3 cm Neck Range of Motion: Full ROM Neck Circumference: Normal Teeth Condition: Removable Dentures/Plates Upper, Removable Dentures/Plates Lower and Edentulous ASA Classification ASA Score: ASA 3 Emergency Case?: No NPO Status NPO Status: NPO Clears >2 hours, Solids >8 hours Anesthesia Plan Resuscitation Status: Full Code Anesthesia Technique: MAC Anesthesia Airway Planned: Natural Airway Monitors Used: Standard Monitors
[2021-01-27 07:25] VITALS: BMI 29.6
[2021-01-27] MEDS: Lidocaine 1% Pres-Free 5 ML VIAL (07:29)
[2021-01-27] MEDS: Balanced Salt Soln.-PLUS 500 ML BAG (07:30)
[2021-01-27] MEDS: Duovisc Viscoelastic System EACH 1 EACH (07:31)
[2021-01-27] MEDS: Povidone-Iodine Ophth 30 ML BTL (07:31)
[2021-01-27] MEDS: Lidocaine 2% Jelly 6 ML SYR (07:32)
[2021-01-27] MEDS: Tetracaine 0.5% 4 ML BTL OD (07:33)
--- NOTE | 2021-01-27 07:50 | PDOC.DSDIS_ITS ---
Discharge Plan Disposition Patient Disposition: HOME Condition: Good Discharge Details Attending Provider: Rodri Cortez Primary Care Provider: Yohan Pino [place] Meds and New Rx's Prescriptions: No Action multivitamin [Daily Multi-Vitamin] 1 EACH tablet 1 ea PO DAILY RF: 0 (DME) FreeStyle Lite Strips 1 EACH strip 1 ea Miscellaneous DIRECTED RF: 0 albuterol sulfate 8.5 GM HFA aerosol inhaler 2 puff Inhalation Q6H PRN RF: 0 nitroglycerin 0.4 MG tablet, sublingual 0.4 mg Sublingual ONCE RF: 0 metformin 500 MG tablet extended release 24hr 500 mg PO AC RF: 0 cholecalciferol (vitamin D3) [Vitamin D3] 2,000 UNIT capsule 2,000 unit PO DAILY RF: 0 triamcinolone acetonide 0.1 % cream 1 applic topical BID RF: 0 Jardiance 10 mg tablet 10 mg PO DAILY RF: 0 clotrimazole 1 % solution 1 applic topical BID RF: 0 Breo Ellipta 100-25 mcg/dose blister with device 1 inh inhalation DAILY RF: 0 sennosides [Senokot] 8.6 mg tablet 17.2 mg PO DAILY RF: 0 spironolactone 25 mg tablet 25 mg PO DAILY RF: 0 atorvastatin [Lipitor] 40 MG tablet 40 mg PO HS RF: 0 aspirin [Ecotrin Low Strength] 81 MG tablet,delayed release (DR/EC) 81 mg PO HS RF: 0 acetaminophen [Tylenol] 325 MG tablet 325 - 650 mg PO Q4H PRN PRNQty: 0 RF: 0 docusate sodium 100 MG capsule 100 mg PO DAILY RF: 0 lisinopril 5 MG tablet 10 mg PO DAILY RF: 0 loratadine 10 MG tablet 10 mg PO DAILY RF: 0 Spiriva with HandiHaler 1 PUFF capsule, w/inhalation device 1 cap Inhalation DAILY Qty: 30 RF: 1 magnesium 200 mg Tablet 400 mg PO DAILY RF: 0 Eliquis 5 mg Tablet 5 mg PO BID RF: 0 Discharge Instructions Stand Alone Forms: Post-op Topical Cataract, Sebastian [place] (DSU) Discharge Orders Discharge Orders: Discharge Order (Routine); Ordered 01/27/21 Ordered By: Rodri Cortez DS: Diagnosis Discharge Diagnosis (1) Posterior subcapsular age-related cataract, right eye: Status: Resolved (2) Nuclear sclerotic cataract of right eye: Status: Resolved
--- NOTE | 2021-01-27 07:52 | ROE_ITS ---
Date of service: 01/27/21 Time of Service: 07:52 Operative Note Operative Note DATE OF PROCEDURE: 01/27/21 PRE-OP DIAGNOSIS: Nuclear/posterior subcapsular cataract, right eye Poorly dilating pupil, right eye POST-OP DIAGNOSIS: same PROCEDURE: 1. Cataract extraction by phacoemulsification with intraocular lens implantation, right eye, with pupillary expansion device SURGEON: Rodri Cortez ANESTHESIA TYPE: Local By Surgeon and MAC Refer to Anesthesia Record PATHOLOGY: none sent COMPLICATIONS: None Patient was transported to: same day Patient's condition: stable Implants: Julio and Julio / [employer] Tecnis [id number] Indications: Progressive decreased vision due to cataract, right eye, with poorly dilating pupil Procedure Description: CATARACT SURGERY OPERATIVE REPORT PREOPERATIVE DIAGNOSIS: 1. Nuclear/posterior subcapsular cataract, right eye 2. Poorly dilating pupil, right eye POSTOPERATIVE DIAGNOSIS: Same OPERATION: 1. Cataract extraction using phacoemulsification with posterior chamber intraocular lens implant, right eye. 2. Pupillary dilation and iris stabilization using Malyugin Ring IOL: IOL Clinical Reviewer/Model: Julio & Julio / ALFIE Tecnis [id number] IOL Power: + 23.5 diopters IOL Serial Number: [id number] Optic Diameter: 6.0mm Haptic/Overall Diameter: 13.0mm PHACO INFO: Tommie SurfEasyurion Vision System with OZil and Active Fluidics Cumulative Dispersed Energy (CDE): 11.05 seconds SURGEON: Rodri Cortez MD, [facility] ANESTHESIA: Monitored Anesthesia Care (MAC), with local sub-tenon's anesthetic infiltration COMPLICATIONS: None SPECIMENS: None INDICATIONS FOR PROCEDURE: The patient is a 75-year-old gentleman with history of diminished visual acuity in his right eye secondary to the development of nuclear and posterior subcapsular cataract. He is significantly symptomatic that he desires cataract surgery and attempt to improve and maximize his vision. The option of cataract surgery was offered to the patient and he wished to proceed. PROCEDURE: The correct surgical eye was identified and marked as the right eye and the pupil was dilated in the preoperative area using mydriatics and cycloplegics. The dilated pupil size was 4.0 mm. The patient was brought to the operating room where cardiopulmonary monitoring was instituted and surgical time-out was performed, confirming the correct operative eye and IOL power. Topical anesthesia was administered and ophthalmic povidone-iodine 5% was instilled into the conjunctival fornices. Lidocaine gel was applied to the cornea and the guerline-ocular area was prepped with Betadine 10% solution and draped in the usual sterile fashion for intraocular surgery, including an aperture drape. A Tegaderm transparent film dressing was cut in half and used to cover the lashes and lid margins. Care was taken to sequester the lashes and lid margins under the Tegaderm dressing. A lid speculum was placed between the lids of the operative eye and the Tomy-Amari operating microscope was maneuvered into position. Alhaji scissors were then used to make a conjunctival buttonhole approximately 6mm posterior to the limbus in the inferonasal quadrant. Blunt dissection was carried out to expose bare sclera, and a blunt-tipped sub-tenon?s anesthesia cannula was introduced and passed posteriorly along the globe where non- preserved plain lidocaine was injected into posterior sub-Tenon?s space. A sideport knife was used to make a paracentesis port inferiortemporally. Intraocular phenylephrine/lidocaine was injected in the anterior chamber. The anterior chamber was filled with viscoelastic. A 2.4mm keratome knife was used to create a half-thickness groove at the limbus and then to construct a three- plane near-clear corneal tunnel extending 2.0mm into clear cornea superiortemporally. A []mm Malyugin Ring was then inserted into the pupillary space and engaged with the Kuglen hook. A flap was raised on the anterior capsule and capsulorhexis forceps were used to complete a continuous curvilinear capsulorhexis of 5.5 mm. Balanced salt solution was then used to perform cortical cleaving hydrodissection and nuclear hydrodelineation until the lens could be freely rotated within the capsular bag. The lens nucleus was then disassembled and removed within the capsular bag and iris plane using phacoemulsification. Residual cortical material was removed using the 45-degree angled silicone I/A tip with 0.3mm port. The posterior capsule was carefully polished to remove as much residual lens epithelial cells as safely possible. The capsular bag was then inflated and the anterior chamber deepened with viscoelastic. The lens implant described above was inserted into the capsular bag using the ALFIE [place] Injector. A Kuglen hook was used to dial the IOL into position. The Malyugin Ring was removed in the reverse order of its insertion. Residual viscoelastic was then removed first from posterior to the IOL, then from the anterior chamber using the I/A handpiece. The lens implant was noted to center nicely within the capsular bag. The incisions were stromally hydrated, and the anterior chamber was reformed using BSS. Then 0.5cc of moxifloxacin 1.0mg/ml were injected into the capsular bag and anterior chamber. The incisions were checked with a Weck spear and found to be secure. Several drops of ophthalmic povidone-iodine 5% were then applied to the eye followed by two drops of Imprimis combination prednisolone/moxifloxacin/nepafenac solution. The drapes were removed and a clear plastic protective eye shield was placed over the eye. The patient was then returned to Same Day Surgery in stable condition.
[2021-01-27 08:00] VITALS: BP 120/76; PULSE 64; RESP 18; TEMP 36.4; O2SAT 95
--- NOTE | 2021-01-27 08:08 | W.ANESPOSTOP ---
Postoperative Evaluation Date, Time and Location Date Performed: 01/27/21 Time Performed: 08:00 Patient Location: Day Surgery Unit Vital Signs Most Recent Imported Vital Signs: Most Recent Vital Signs Temp Pulse Resp BP Pulse Ox 36.4 C L 64 18 120/76 95 01/27/21 08:00 01/27/21 08:00 01/27/21 08:00 01/27/21 08:00 01/27/21 08:00 Pain Score Most Recent Pain Score: Most Recent Pain Score Pain Level 0 01/27/21 08:00 Assessment Mental Status: Awake (Alert & Oriented to Patient Baseline) Airway and Respiratory Function: Patent airway with normal (patient baseline) respiratory exam Cardiovascular Function: Hemodynamically Stable Hydration Status: Adequately Hydrated Nausea & Vomiting: No Nausea or Vomiting Pain: Pt. Denies Any Pain Peripheral Nerve Block: Patient did not receive a nerve block
== END 2021-01-27 08:10 | disposition home or self-care (01) ==
PROVIDERS: PCP Family Medicine; Visit Provider Ophthalmology
PROC: (CPT 66982; principal; 2021-01-27 07:30)
DX: H25.041 Posterior subcapsular polar age-related cataract, right eye (principal); H57.03 Miosis
CPT/HCPCS: 66982; V2632

== ENCOUNTER 2021-02-07 03:18 | Outpatient (CLI) | payer MEDICARE, BC, SELFPAY ==
[2021-02-07 10:56] LABS: Source Nasal/Nares
[2021-02-07 14:23] LABS: COVID-19 PCR Negative (Negative)
== END 2021-02-07 03:19 | disposition home or self-care (01) ==
LOC: LBO 03:18
PROVIDERS: PCP Family Medicine; Visit Provider Ophthalmology
DX: Z20.822 Contact with and (suspected) exposure to COVID-19 (principal); Z01.818 Encounter for other preprocedural examination
CPT/HCPCS: 87635

== ENCOUNTER 2021-02-10 09:41 | Day surgery (SDC) | payer MEDICARE, BC, SELFPAY ==
[2021-02-10 10:00] VITALS: BP 124/67; PULSE 55; RESP 16; TEMP 36.3; O2SAT 97
[2021-02-10] MEDS: Tropicam./Phenyleph. (1/2.5%) 5 ML BTL OS ×3 (10:14→10:25)
--- NOTE | 2021-02-10 11:03 | W.ANESPRE ---
General Info Date of Service Date Performed: 02/10/21 Height: 5 ft 10 in Weight: 94.1 kg Body Mass Index (BMI): 29.7 Surgical Procedure: Operation Date: 02/10/21 12:40 Proposed Procedures Side Surgeon p Cataract Extraction with IOL Implant Left Rodri Cortez MD Meds Allergies and Home Medications Allergies Allergy/AdvReac Type Severity Reaction Status Date / Time Sulfa (Sulfonamide Allergy Intermediate Skin Rash Unverified 02/10/21 10:02 Antibiotics) metoprolol AdvReac Severe BRADYCARDIA Unverified 02/10/21 10:02 Home Medication Medication Instructions Recorded aspirin [Ecotrin Low Strength] 81 mg PO HS 06/10/13 atorvastatin [Lipitor] 40 mg PO HS 06/10/13 FreeStyle Lite Strips strip 07/03/14 albuterol sulfate 2 puff INHALATION Q6H PRN inhaler 07/03/14 multivitamin [Daily Multi-Vitamin] 1 ea PO DAILY 07/03/14 nitroglycerin 0.4 mg SUBLINGUAL ONCE tab-cap 07/03/14 cholecalciferol (vitamin D3) 2,000 unit PO DAILY 08/16/14 [Vitamin D3] metformin 500 mg PO AC tab-cap 08/16/14 acetaminophen [Tylenol] 325 - 650 mg PO Q4H PRN PRN #0 tab 08/09/15 docusate sodium 100 mg PO DAILY 05/18/16 lisinopril 10 mg PO DAILY 05/18/16 loratadine 10 mg PO DAILY 05/18/16 Spiriva with HandiHaler 1 cap INHALATION DAILY #30 fariba 05/20/16 Eliquis 5 mg PO BID 03/29/18 magnesium 400 mg PO DAILY 03/29/18 clotrimazole 1 % topical solution 1 applic TOPICAL BID 10/31/20 empagliflozin 10 mg tablet 10 mg PO DAILY 10/31/20 fluticasone furoate 100 1 inh INHALATION DAILY 10/31/20 mcg-vilanterol 25 mcg/dose inhalation powder sennosides 8.6 mg tablet 17.2 mg PO DAILY tab 10/31/20 spironolactone 25 mg tablet 25 mg PO DAILY 10/31/20 triamcinolone acetonide 0.1 % 1 applic TOPICAL BID 10/31/20 topical cream Current Visit Medications: Current Medications Generic Name Dose Route Start Last Admin Trade Name Freq PRN Reason Stop Dose Admin Acetaminophen 1,000 mg 02/10/21 06:54 Acetaminophen 500 Mg Tab PO Q4H PRN PRN Miscellaneous Medication 0 ml 02/10/21 06:54 Prednisolone 1%, Moxifloxacin 0.5%, Nepafenac 0.1% 5ml Btl OS DIRECTED JOSE LUIS Miscellaneous Medication 0 ml 02/10/21 06:54 02/10/21 10:25 Tropicam./Phenyleph. 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 Hypertension I10 Dyslipidemia E78.5 Essential tremor G25.0 CHF (congestive heart failure) I50.9 DVT prophylaxis Sensorineural hearing loss of both ears H90.3 Venous insufficiency I87.2 Balanitis N48.1 Ischemic cardiomyopathy I25.5 Sleep apnea G47.30 Sciatica of right side M54.31 Hypomagnesemia E83.42 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 Vitamin D deficiency E55.9 Sensorineural hearing loss, bilateral H90.3 History of excessive cerumen Z78.9 Nuclear sclerotic cataract of right eye H25.11 Posterior subcapsular age-related cataract, right eye H25.041 Medical History Active Problem List CAD (coronary artery disease) (Chronic) SOB (shortness of breath) (Acute) Atrial fibrillation (Chronic) COPD (chronic obstructive pulmonary disease) (Chronic) Diabetes mellitus (Chronic) Hx of CABG (Chronic) Hypertension (Chronic) Dyslipidemia (Chronic) Essential tremor (Chronic) CHF (congestive heart failure) (Chronic) DVT prophylaxis (Acute) Sensorineural hearing loss of both ears (Acute) Venous insufficiency (Acute) Balanitis (Acute) Ischemic cardiomyopathy (Acute) Sleep apnea (Acute) Sciatica of right side (Acute) Hypomagnesemia (Acute) Haviland syndrome (Acute) Vitamin D deficiency (Acute) Sensorineural hearing loss, bilateral (Acute) History of excessive cerumen (Acute) Medical History Adenomatous polyps ASCVD (arteriosclerotic cardiovascular disease) Atrial flutter Coronary artery disease Diabetes mellitus type 2 in obese Hyperlipidemia Hypertension Sigmoid diverticulosis UTI (urinary tract infection) (08/04/14) Surgical History Surgical History (Updated 02/10/21 @ 10:01 by Anh Valente) Colonoscopy - IV Sedation (~2009) Coronary Artery Bypass Gaft (CABG) (10/04/14) Hx of prior ablation treatment cardiac - 2018 Hx of tonsillectomy Tobacco Smoking/Tobacco Use Status: Former Tobacco Use Alcohol Alcohol Intake: never Substance Use Substance use: Never Substance use type: does not use Vital Signs and Lab Results Vital Signs Most Recent Vital Signs in EMR: Most Recent Vital Signs Temp Pulse Resp BP Pulse Ox 36.3 C L 55 L 16 124/67 97 02/10/21 10:00 02/10/21 10:00 02/10/21 10:00 02/10/21 10:00 02/10/21 10:00 Point of Care Results Point of Care Results: Finger Stick Blood Glucose 148 02/10/21 10:11 Lab Results Blood Type / Crossmatch: No Data to Display Complete Blood Count: No Data to Display Complete Metabolic Panel: No Data to Display Liver Function Panel: No Data to Display Coagulation Panel: No Data to Display Cardiac Panel: No Data to Display Arterial Blood Gas: No Data to Display Venous Blood Gas: No Data to Display Pancreas Panel: No Data to Display Thyroid Panel: No Data to Display Infectious Disease: Coronavirus (COVID-19)(PCR) Negative (Negative) 02/07/21 08:51 02/07/21 Coronavirus 2019 Source Nasal/Nares 02/07/21 08:51 02/07/21 Blood Cultures: No Data to Display Toxicology Panel: No Data to Display Imaging and Studies Imaging and Studies Stress Test Summary: Impressions: - Normal perfusion by [id number] Sestamibi Imaging. - Abnormal contraction consistent with cardiomyopathy. Summary: 1. Myocardial perfusion imaging: No myocardial perfusion defects noted. 2. The calculated left ventricular ejection fraction after stress: 20%. Gated images sub-optimal due to atrial flutter and motion artifact. Estimated EF not accurate. LV global systolic function is severely reduced. 04/01/18 Echocardiogram Summary: Impressions: The patient was in atrial fibrillation throughout study. This rhythm can interfere with accurate global and segmental wall motion analysis. Summary: 1. Left ventricle: The cavity size was mildly dilated. Wall thickness was increased in a pattern of moderate LVH. Systolic function was moderately reduced. The estimated ejection fraction was 35-40%. Diffuse hypokinesis. 2. Ventricular septum: Septal motion showed paradoxical motion consistent with Bundle Branch Block. 3. Aortic valve: Trileaflet; mildly calcified leaflets. There was mild regurgitation. 4. Aorta: There was mild to moderate dilation, extending from the root to the proximal ascending aorta. The maximal diameter was 4.0cm. 5. Mitral valve: There was mild regurgitation. 6. Left atrium: The atrium was dilated. 7. Right ventricle: The cavity size was normal. Wall thickness was normal. Systolic function was normal. 8. Right atrium: The atrium was dilated. 9. Tricuspid valve: There was mild-moderate regurgitation. 10. Pulmonary arteries: Pulmonary systolic pressure was increased, in the range of 35mm Hg to 40mm Hg. 03/30/18 Pulmonary Function Summary: INTERPRETATION OF STUDY: Spirometry shows severe obstructive airways disease with significant bronchodilator response. LUNG VOLUMES: Lung volumes show no evidence of restriction. DIFFUSION CAPACITY: Moderately reduced, which is mildly reduced when corrected to alveolar volume. AIRWAY RESISTANCE: Elevated. 04/01/15 Anesthesia Assessment and Plan Anesthesia History Personal History: No History of Anesthesia Complications Family History: No Family History of Anesthesia Complications Exercise Tolerance Exercise Tolerance: Metabolic Equivalents>4 Cardiac & Pulmonary Exam Cardiac Exam: Normal S1/S2 Heart Sounds Pulmonary Exam: Clear Bilateral Breath Sounds Implantable Cardiac Device Does patient have a Pacemaker or an ICD?: No Airway Exam Known Difficult Airway: No Mallampati Class: 1 Mouth Opening: Normal (> 3cm) Thyromental Distance: Greater than 3 cm Neck Range of Motion: Full ROM Neck Circumference: Normal Teeth Condition: Removable Dentures/Plates Upper, Removable Dentures/Plates Lower and Edentulous ASA Classification ASA Score: ASA 3 Emergency Case?: No NPO Status NPO Status: NPO Clears >2 hours, Solids >8 hours Anesthesia Plan Resuscitation Status: Full Code Anesthesia Technique: MAC Anesthesia Airway Planned: Natural Airway Monitors Used: Standard Monitors
[2021-02-10 11:05] VITALS: BMI 29.7
[2021-02-10] MEDS: Tetracaine 0.5% 4 ML BTL OS (11:19)
[2021-02-10] MEDS: Balanced Salt Soln.-PLUS 500 ML BAG (11:21)
[2021-02-10] MEDS: Duovisc Viscoelastic System EACH 1 EACH (11:21)
[2021-02-10] MEDS: Lidocaine 2% Jelly 6 ML SYR (11:22)
[2021-02-10] MEDS: Lidocaine 1% Pres-Free 5 ML VIAL (11:22)
[2021-02-10] MEDS: Povidone-Iodine Ophth 30 ML BTL (11:23)
--- NOTE | 2021-02-10 11:38 | W.PM.DSUDISC ---
Discharge Plan Disposition Patient Disposition: HOME Condition: Good Discharge Details Attending Provider: Rodri Cortez Primary Care Provider: Yohan Pino [place] Meds and New Rx's Prescriptions: No Action multivitamin [Daily Multi-Vitamin] 1 EACH tablet 1 ea PO DAILY RF: 0 (DME) FreeStyle Lite Strips 1 EACH strip 1 ea Miscellaneous DIRECTED RF: 0 albuterol sulfate 8.5 GM HFA aerosol inhaler 2 puff Inhalation Q6H PRN RF: 0 nitroglycerin 0.4 MG tablet, sublingual 0.4 mg Sublingual ONCE RF: 0 metformin 500 MG tablet extended release 24hr 500 mg PO AC RF: 0 cholecalciferol (vitamin D3) [Vitamin D3] 2,000 UNIT capsule 2,000 unit PO DAILY RF: 0 triamcinolone acetonide 0.1 % cream 1 applic topical BID RF: 0 Jardiance 10 mg tablet 10 mg PO DAILY RF: 0 clotrimazole 1 % solution 1 applic topical BID RF: 0 Breo Ellipta 100-25 mcg/dose blister with device 1 inh inhalation DAILY RF: 0 sennosides [Senokot] 8.6 mg tablet 17.2 mg PO DAILY RF: 0 spironolactone 25 mg tablet 25 mg PO DAILY RF: 0 atorvastatin [Lipitor] 40 MG tablet 40 mg PO HS RF: 0 aspirin [Ecotrin Low Strength] 81 MG tablet,delayed release (DR/EC) 81 mg PO HS RF: 0 acetaminophen [Tylenol] 325 MG tablet 325 - 650 mg PO Q4H PRN PRNQty: 0 RF: 0 docusate sodium 100 MG capsule 100 mg PO DAILY RF: 0 lisinopril 5 MG tablet 10 mg PO DAILY RF: 0 loratadine 10 MG tablet 10 mg PO DAILY RF: 0 Spiriva with HandiHaler 1 PUFF capsule, w/inhalation device 1 cap Inhalation DAILY Qty: 30 RF: 1 magnesium 200 mg Tablet 400 mg PO DAILY RF: 0 Eliquis 5 mg Tablet 5 mg PO BID RF: 0 Discharge Instructions Stand Alone Forms: Post-op Topical Cataract, [place] (DSU) Discharge Orders Discharge Orders: Discharge Order (Routine); Ordered 02/10/21 Ordered By: Rodri Cortez DS: Diagnosis Discharge Diagnosis (1) Nuclear sclerotic cataract of left eye: Status: Resolved (2) Posterior subcapsular age-related cataract of left eye: Status: Resolved
[2021-02-10 11:39] VITALS: BP 120/77; PULSE 55; RESP 16; TEMP 37.3; O2SAT 96
--- NOTE | 2021-02-10 11:40 | ROE_ITS ---
Date of service: 02/10/21 Time of Service: 11:40 Operative Note Operative Note DATE OF PROCEDURE: 02/10/21 PRE-OP DIAGNOSIS: Nuclear/posterior subcapsular cataract, left eye POST-OP DIAGNOSIS: same PROCEDURE: Cataract extraction using phacoemulsification with intraocular lens implant, left eye SURGEON: Rodri Cortez ANESTHESIA TYPE: Local By Surgeon and MAC Refer to Anesthesia Record PATHOLOGY: none sent COMPLICATIONS: None Patient was transported to: same day Patient's condition: stable Implants: Julio [employer] Julio / [employer] Tecnis [id number] Indications: Progressive decreased vision due to cataract, left eye Procedure Description: CATARACT SURGERY OPERATIVE REPORT PREOPERATIVE DIAGNOSIS: 1. Nuclear/posterior subcapsular cataract, left eye POSTOPERATIVE DIAGNOSIS: Same OPERATION: 1. Cataract extraction using phacoemulsification with posterior chamber intraocular lens implant, left eye. IOL: IOL Adult [employer] Instructor/Model: Jul[employer] Jul[employer] / ALFIE Tecnis [id number] IOL Power: + 23.5 diopters IOL Serial Number: [id number] Optic Diameter: 6.0 mm Haptic/Overall Diameter: 13.0 mm PHACO INFO: Tommie Paradialurion Vision System with OZil and Active Fluidics Cumulative Dispersed Energy (CDE): 10.96 seconds SURGEON: Rodri Cortez MD, HAWK ANESTHESIA: Monitored A [facility] ([facility]), with local sub-tenon's anesthetic infiltration COMPLICATIONS: None SPECIMENS: None INDICATIONS FOR PROCEDURE: The patient is a 75-year-old gentleman with history of diminished visual acuity in both eyes secondary to the development of bilateral cataracts. He has already undergone cataract surgery in the right eye and is doing well postoperatively. He now presents for cataract surgery in the left eye. PROCEDURE: The correct surgical eye was identified and marked as the left eye and the pupil was dilated in the preoperative area using mydriatics and cycloplegics. The dilated pupil size was 6.0 mm. He elected to proceed without oral sedation.. The patient was brought to the operating room where cardiopulmonary monitoring was instituted and surgical time-out was performed, confirming the correct operative eye and IOL power. Topical anesthesia was administered and ophthalmic povidone-iodine 5% was instilled into the conjunctival fornices. Lidocaine gel was applied to the cornea and the guerline-ocular area was prepped with Betadine 10% solution and draped in the usual sterile fashion for intraocular surgery, including an aperture drape. A Tegaderm transparent film dressing was cut in half and used to cover the lashes and lid margins. Care was taken to sequester the lashes and lid margins under the Tegaderm dressing. A lid speculum was placed between the lids of the operative eye and the Tomy-Amari operating microscope was maneuvered into position. Alhaji scissors were then used to make a conjunctival buttonhole approximately 6mm posterior to the limbus in the inferonasal quadrant. Blunt dissection was carried out to expose bare sclera, and a blunt-tipped sub-tenon?s anesthesia cannula was introduced and passed posteriorly along the globe where non- preserved plain lidocaine was injected into posterior sub-Tenon?s space. A sideport knife was used to make a paracentesis port superiorly/superiortemporally. Intraocular phenylephrine/lidocaine was injected int the anterior chamber.. The anterior chamber was filled with viscoelastic. A 2.4mm keratome knife was used to create a half-thickness groove at the limbus and then to construct a three-plane near-clear corneal tunnel extending 2.0mm into clear cornea at the 3:00 position. A flap was raised on the anterior capsule and capsulorhexis forceps were used to complete a continuous curvilinear capsulorhexis of 5.0 mm. Balanced salt solution was then used to perform cortical cleaving hydrodissection and nuclear hydrodelineation until the lens could be freely rotated within the capsular bag. The lens nucleus was then disassembled and removed within the capsular bag and iris plane using phacoemulsification. Residual cortical material was removed using the 45-degree angled silicone I/A tip with 0.3mm port. The posterior capsule was carefully polished to remove as much residual lens epithelial cells as safely possible. The capsular bag was then inflated and the anterior chamber deepened with viscoelastic. The lens implant described above was inserted into the capsular bag using the ALFIE Niles Injector. A Kuglen hook was used to dial the IOL into position. Residual viscoelastic was then removed first from posterior to the IOL, then from the anterior chamber using the I/A handpiece. The lens implant was noted to center nicely within the capsular bag. The incisions were stromally hydrated, and the anterior chamber was reformed using BSS. Then 0.5cc of moxifloxacin 1.0mg/ml were injected into the capsular bag and anterior chamber. The incisions were checked with a Weck spear and found to be secure. Several drops of ophthalmic povidone-iodine 5% were then applied to the eye followed by two drops of Imprimis combination prednisolone/moxifloxacin/nepafenac solution. The drapes were removed and a clear plastic protective eye shield was placed over the eye. The patient was then returned to Same Day Surgery in stable condition.
--- NOTE | 2021-02-10 11:42 | W.ANESPOSTOP ---
Postoperative Evaluation Date, Time and Location Date Performed: 02/10/21 Time Performed: 11:43 Patient Location: Day Surgery Unit Vital Signs Most Recent Imported Vital Signs: Most Recent Vital Signs Temp Pulse Resp BP Pulse Ox 36.3 C L 55 L 16 124/67 97 02/10/21 10:00 02/10/21 10:00 02/10/21 10:00 02/10/21 10:00 02/10/21 10:00 Most Recent Manually Entered Vital Signs: Adult Blood Pressure: 120/77 Heart Rate: 54 Respirations: 16 Oxygen Saturation (%): 96 Temperature (C): 37.0 C Pain Score (0-10 Scale): 0 Pain Score Most Recent Pain Score: Most Recent Pain Score Pain Level 0 02/10/21 10:00 Assessment Mental Status: Awake (Alert & Oriented to Patient Baseline) Airway and Respiratory Function: Patent airway with normal (patient baseline) respiratory exam Cardiovascular Function: Hemodynamically Stable Hydration Status: Adequately Hydrated Nausea & Vomiting: No Nausea or Vomiting Pain: Pt. Denies Any Pain Peripheral Nerve Block: Patient did not receive a nerve block
[2021-02-10 11:43] VITALS: BP 120/77; PULSE 54; RESP 16; TEMPC 37; O2SAT 96
== END 2021-02-10 11:53 | disposition home or self-care (01) ==
PROVIDERS: PCP Family Medicine; Visit Provider Ophthalmology
PROC: (CPT 66984; principal; 2021-02-10 12:30)
DX: H25.042 Posterior subcapsular polar age-related cataract, left eye (principal)
CPT/HCPCS: 66984; V2632

== ENCOUNTER 2021-04-16 15:09 | Outpatient (REF) | payer MEDICARE, BC, SELFPAY ==
[2021-04-16 16:15] LABS: CREATININE 1.1 mg/dL (0.70-1.30)
== END 2021-04-16 15:10 | disposition home or self-care (01) ==
LOC: NCHCN 15:09
PROVIDERS: PCP Family Medicine; Visit Provider Family Medicine
DX: E11.9 Type 2 diabetes mellitus without complications (principal)
CPT/HCPCS: 82565

== ENCOUNTER 2021-04-24 01:08 | Outpatient (CLI) | payer MEDICARE, BC, SELFPAY ==
--- NOTE | 2021-04-24 | DI.CT_ITS ---
Exam(s) CT CHEST WO EXAM: CT CHEST WO CLINICAL HISTORY: F/U LUNG NODULE,R91.8. TECHNIQUE: Imaging protocol: Axial computed tomography images were obtained and coronal and sagittal reformatted images were created and reviewed. COMPARISON: CT CT CHEST PE CTA from 09/06/2019 FINDINGS: Tracheobronchial tree: Patent where visualized. Pulmonary parenchyma: No focal consolidation. There is a stable 5 mm nodule in the left lower lobe. No new pulmonary nodules are present. Emphysematous changes are present in the lungs. Scarring is seen in the left lung apex. Mediastinum and Cookie: No dominant adenopathy or fluid collection. The esophagus is unremarkable. Thyroid gland: Unremarkable. Pleura: No effusion or pneumothorax. Heart: The heart is not dilated. Coronary artery calcifications are present. No pericardial effusion . Aorta: Thoracic aorta non-dilated. Atherosclerosis. Upper abdomen: There is a stable cyst in the liver. Lymph nodes: Within normal limits. Soft tissues: Unremarkable. Bones:Within normal limits for the patient's age. Sternal wires are in place. IMPRESSION: Stable left lower lobe pulmonary nodule. A 12 month follow-up CT scan is recommended to document sta bility. RADIATION DOSE DELIVERED: 653.56mGy.cm Total DLP 653.56mGy.cm Total DLP DATA REPOSITORY: All CT scans at this facility are submitted to the National Radiology Data Registry (NRDR) Dose Index Registry (DIR) with the [employer] (ACR). RADIATION OPTIMIZATION: All CT scans at this facility use at least one of these dose optimization te chniques: automated exposure control; mA and/or kV adjustment per patient size (includes targeted exa ms where dose is matched to clinical indication); or iterative reconstruction.
== END 2021-04-24 01:28 ==
PROVIDERS: PCP Family Medicine; Visit Provider Family Medicine
DX: R91.1 Solitary pulmonary nodule (principal); J98.4 Other disorders of lung
CPT/HCPCS: 71250

== ENCOUNTER 2022-03-31 08:55 | Outpatient (REF) | payer MEDICARE, BC, SELFPAY ==
[2022-03-31 18:58] LABS: ALT 32 U/L (16-63); AST 18 U/L (15-37); Albumin 3.8 g/dL (3.4-5.0); Alkaline Phosphatase 64 U/L (46-116); Anion Gap 7.1 mmol/L (3-11); BUN 22 mg/dL (7-18); Bilirubin, Total 0.7 mg/dL (0.2-1.0); CO2 25.9 mmol/L (21.0-32.0); CREATININE 1.2 mg/dL (0.70-1.30); Calcium 9.1 mg/dL (8.5-10.1); Chloride 108 mmol/L (98-107); Estimated GFR 61.52 (mL/min/1.73m2); Glucose 186 mg/dL (74-106); Magnesium 2.1 mg/dL (1.8-2.4); Potassium 4.3 mmol/L (3.5-5.1); Sodium 141 mmol/L (136-145)
== END 2022-03-31 08:56 | disposition home or self-care (01) ==
LOC: NCHCN 08:55
PROVIDERS: PCP Family Medicine; Visit Provider Family Medicine
DX: E83.42 Hypomagnesemia (principal); I10 Essential (primary) hypertension; I50.1 Left ventricular failure, unspecified
CPT/HCPCS: 80053; 83735

== ENCOUNTER 2022-04-09 01:30 | Outpatient (CLI) | payer MEDICARE, BC, SELFPAY ==
--- NOTE | 2022-04-09 07:45 | DI.CT_ITS ---
Exam(s) CT CHEST WO EXAM: CT CHEST WO CLINICAL HISTORY: LUNG NODULE, R91.8, 1 YR F/U. TECHNIQUE: Imaging protocol: Axial computed tomography images were obtained and coronal and sagittal reformatted images were created and reviewed. COMPARISON: CT CT CHEST PE CTA from 09/06/[address] CHEST WO from 04/24/2021 FINDINGS: Tracheobronchial tree: Patent where visualized. Pulmonary parenchyma: No consolidation or dominant measurable mass. Emphysematous changes are present in the lungs. There is no change in the 5 mm nodule in the left lower lobe. No new nodules are see n. Mediastinum and Cookie: No dominant adenopathy or fluid collection. The esophagus is unremarkable. Thyroid gland: Unremarkable. Pleura: No effusion or pneumothorax. Heart: The heart is not dilated. Coronary artery calcification and/or stents are seen. No pericardia l effusion. Aorta: Thoracic aorta non-dilated. Atherosclerosis is present. Upper abdomen: There is a cyst again seen in the liver. Lymph nodes: Within normal limits. Soft tissues: Unremarkable. Bones:Within normal limits for the patient's age. Sternal wires are in place. IMPRESSION: Stable 5 mm left lower lobe pulmonary nodule. No new pulmonary nodules are present. Follow-up CT sc an of the chest in 1 year is recommended. RADIATION DOSE DELIVERED: 616.67mGy.cm Total DLP 616.67mGy.cm Total DLP DATA REPOSITORY: All CT scans at this facility are submitted to the National Radiology Data Registry (NRDR) Dose Index Registry (DIR) with the [employer] (ACR). RADIATION OPTIMIZATION: All CT scans at this facility use at least one of these dose optimization te chniques: automated exposure control; mA and/or kV adjustment per patient size (includes targeted exa ms where dose is matched to clinical indication); or iterative reconstruction.
== END 2022-04-09 01:50 ==
LOC: DI 01:31
PROVIDERS: PCP Family Medicine; Visit Provider Family Medicine
DX: R91.1 Solitary pulmonary nodule (principal)
CPT/HCPCS: 71250

== ENCOUNTER 2022-06-15 01:53 | Outpatient (CLI) | payer MEDICARE, BC, SELFPAY ==
--- NOTE | 2022-06-15 14:00 | DI.US_ITS ---
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 Technically limited study due to body habitus, arrhythmia. Conclusion Normal left ventricular wall thickness and chamber size. Ejection fraction is 55%. Wall motion appe ars normal Normal right ventricular size and systolic function Both atria are normal in size The aortic valve is trileaflet and sclerotic with trace regurgitation Mildly thickened mitral leaflets, trace regurgitation Normal tricuspid valve with trace to mild regurgitation. Estimated right ventricular systolic pressu re is 28 mmHg Mildly dilated ascending aorta, 3.74 cm The patient was in sinus rhythm with frequent ventricular ectopic beats and couplets Wall motion Left Ventricle The left ventricle is normal size. The overall left ventricular systolic function appears normal. The re is normal left ventricular wall thickness. There is normal LV segmental wall motion. There is no v entricular septal defect visualized. LVEF is 55%. Right Ventricle The right ventricle is normal size. The right ventricular systolic function is normal. The RVSP is 28 .5 mmHg. Atria The left atrium size is normal. The right atrium size is normal. The interatrial septum is intact wit h no evidence for an atrial septal defect. Aortic Valve The Aortic valve is sclerotic. Aortic valve is trileaflet. There is no aortic valvular stenosis. Tra ce aortic regurgitation. Mitral Valve Mildly thickened mitral leaflets No evidence of mitral valve stenosis. Trace mitral regurgitation. Tricuspid Valve The tricuspid valve is normal in structure. There is no tricuspid valve stenosis. Trace to mild tric uspid regurgitation. Pulmonic Valve The pulmonary valve is normal in structure. There is no pulmonic valvular stenosis. There is no pulmo audi valvular regurgitation. Great Vessels The aortic root is normal in size. The ascending aorta is mildly dilated. Ascending aorta is not well visualized. IVC is normal in size and collapses >50% with inspiration. Pericardium There is no pericardial effusion. 2D Dimensions IVSD d PLAX 1.04 cm M: 0.6-1.2 LV Vol A2C d MOD 104.7 mL LVPW d PLAX 1.04 cm M: 0.6 - 1.2 LV Vol A4C d MOD 94.8 mL LVID d PLAX 4.84 cm M: 4.2 - 5.8 LA vol/ BSA A2C s A-L 27.2 mL/m2 LVDs 3.40 cm M: 2.5 - 4.0 LA vol/ BSA A4C s A-L 21.4 mL/m2 Ao Root d 3.75 cm M: 3.1 - 3.7 LA Vol/ BSA Biplane s A-L 26.5 mL/m2 Ao Asc Diam d 3.74 cm M: 2.6 - 3.4 LA Area A4C s MOD 17.27 cm2 LV EF Teichholz 56.5 % LA Area A2C s MOD 17.71 cm2 LVEF (Michael's) 55.25 % M: 52 - 72 LV EF A4C MOD 50.6 % LV Volume 80.16 mL M: 62 - 150 LV EF A2C MOD 55.9 % LV Volume Index 38.35 mL/m2 M: 34 - 74 LV EF Biplane MOD 55.3 % LV Vol Biplane MOD 108.4 mL SV 59.89 mL FS 29.55 % SV Index 28.69 mL/m2 LV Diastology MV E' medial 0.098 (>0.07 m/s) E/A Ratio 0.8 LV E/e MED 6.30 (<14) MV E Vmax 0.62 (0.4-1.3 m/s) MV E' lateral 0.128 (>0.1 m/s) MV A Vmax 0.80 (0.4-1.3 m/s) LV E/e LAT 4.80 (<14) MV E/A Ratio 0.76 MV E/E' medial 6.30 MV E/E' lateral 4.81 Aortic Valve LVOT Area 3.52 cm2 AoV Area Vmax 2.99 cm2 LVOT Vmax 1.11 m/s AoV Area/ BSA (Vmax) 1.43 cm2/m2 LVOT Mean Ag. 0.83 m/s SANGEETA Mean Ag. 2.64 cm2 LVOT Peak Grad 4.9 mmHg SANGEETA Mean Ag. Index 1.27 cm2/m2 LVOT Mean Grad 3.0 mmHg LVOT VTI 0.253 m LVOT Diam s 2.10 cm AoV Vmax 1.31 m/s Velocity Ratio 0.85 AoV Mean Ag. 1.10 m/s AoV Peak Grad 6.8 mmHg LVOT SV 89.14 mL AoV Mean Grad 5.0 mmHg AoV VTI 0.283 m AoV Area VTI 3.15 cm2 AoV Area/ BSA (VTI) 1.51 cm/m2 Mitral Valve MV DT 363 (160-240 msec) MV PHT 105 msec MV Area PHT 2.09 cm2 MV VTI 0.273 m MV Area VTI 3.27 (4.0-6.0 cm2) Pulmonary Valve PV Vmax 1.03 (0.5-1.5 m/s) RVOT Peak Gr. 1.82 mmHg PV Peak Grad 4.2 mmHg RVOT Mean Gr. 0.85 mmHg PV Mean Grad 2.6 mmHg RVOT VTI 0.109 m PV VTI 0.162 m RVOT Vmax 0.68 m/s Tricuspid Valve TR Peak Grad 25.5 mmHg TR Vmax 2.53 m/s RA Pressure 3.00 mmHg RVSP (TR) 28.5 mmHg
[2022-07-07 10:13] VITALS: BP 141/78; PULSE 80
== END 2022-06-15 02:13 ==
LOC: DI 01:53
PROVIDERS: PCP Family Medicine; Visit Provider Family Medicine
DX: I50.1 Left ventricular failure, unspecified (principal)
CPT/HCPCS: 93306

== ENCOUNTER 2022-06-22 10:24 | Outpatient (REF) | payer MEDICARE, BC, SELFPAY ==
[2022-06-22 15:44] LABS: COMMENT (LAB VIEW ONLY) 62.72 mg/dL; Microalb ug/mg Crea 4.6 ug/mg Cr
== END 2022-06-22 10:25 | disposition home or self-care (01) ==
LOC: NCHCN 10:24
PROVIDERS: PCP Family Medicine; Visit Provider Family Medicine
DX: E11.9 Type 2 diabetes mellitus without complications (principal)
CPT/HCPCS: 82043; 82570; 83036

== ENCOUNTER 2022-07-23 09:43 | Outpatient (RCR) | payer SELFPAY ==
[2022-07-09 09:55] VITALS: BP 135/77; PULSE 76
[2022-07-14 10:10] VITALS: BP 116/79; PULSE 72
[2022-07-16 10:00] VITALS: BP 126/74; PULSE 88
[2022-07-21 10:14] VITALS: BP 122/72; PULSE 75
== END 2022-07-26 23:59 | disposition home or self-care (01) ==
LOC: CR 09:43
PROVIDERS: PCP Family Medicine; Visit Provider Internal Medicine Cardiovascular Disease
DX: R69 Illness, unspecified (principal)

== ENCOUNTER 2022-08-04 10:04 | Outpatient (RCR) | payer SELFPAY ==
[2022-07-27 00:10] VITALS: BP 122/72; PULSE 75
[2022-07-28 10:29] VITALS: BP 132/78; PULSE 79
[2022-07-30 09:58] VITALS: BP 128/92; PULSE 75
[2022-08-04 10:07] VITALS: BP 109/73; PULSE 66
== END 2022-08-26 23:59 | disposition home or self-care (01) ==
LOC: CR 10:04
PROVIDERS: PCP Family Medicine; Visit Provider Internal Medicine Cardiovascular Disease

== ENCOUNTER 2022-09-17 16:03 | Outpatient (REF) | payer MEDICARE, BC, SELFPAY ==
[2022-09-17 15:50] LABS: Abs Immature Grans 0.03 10^3/uL (0.0-0.06); Absolute Basophil Count 0.03 10^3/uL (0.0-0.2); Absolute Eosinophil Count 0.13 10^3/uL (0.0-0.7); Absolute Lymphocyte Count 1.65 10^3/uL (1.2-3.4); Absolute Monocyte Count 0.76 10^3/uL (0.1-0.8); Absolute Neutrophil Count 5.25 10^3/uL (1.2-6.7); Basophils % 0.4; Eosinophils % 1.7; HCT 47.4 % (40.0-50.0); HGB 16.1 g/dL (13.5-17.5); Immature Grans % 0.4; MCH 29.6 pg (27.0-33.0); MCV 87 fL (80-95); MPV 9.5 fL (8.0-11.0); Monocytes % 9.7; Neutrophils % 66.8; Platelet Count 303 10^3/uL (130-400); RBC 5.44 10^6/uL (4.36-5.78); RDW 13.8 % (11.8-14.1); RDW-SD 43.9 fL; WBC 7.85 10^3/uL (4.4-10.8)
[2022-09-17 16:01] LABS: ALT 21 U/L (16-63); AST 16 U/L (15-37); Alkaline Phosphatase 68 U/L (46-116); Anion Gap 13.3 mmol/L (3-11); BUN 12 mg/dL (7-18); Bilirubin, Total 1.1 mg/dL (0.2-1.0); CO2 24.7 mmol/L (21.0-32.0); Calcium 9.5 mg/dL (8.5-10.1); Chloride 98 mmol/L (98-107); Estimated GFR 76.56 (mL/min/1.73m2); Glucose 159 mg/dL (74-106); Lipase 12 U/L (16-77); Potassium 4.3 mmol/L (3.5-5.1); Sodium 136 mmol/L (136-145); Total Protein 7.2 g/dL (6.4-8.2)
== END 2022-09-17 16:04 | disposition home or self-care (01) ==
LOC: NCHCN 16:03
PROVIDERS: PCP Family Medicine; Visit Provider Family Medicine
DX: R10.9 Unspecified abdominal pain (principal)
CPT/HCPCS: 80053; 83690; 85025

== ENCOUNTER 2022-09-22 00:33 | Outpatient (CLI) | payer MEDICARE, BC, SELFPAY ==
--- NOTE | 2022-09-22 | DI.US_ITS ---
Exam(s) US ABDOMEN EXAM: US ABDOMEN CLINICAL HISTORY: ABD PAIN, R10.9, NAUSEA AFTER EATING, INCREASING BILIRUBIN TECHNIQUE: Ultrasound abdomen performed using standard protocol. COMPARISON: CT CT CHEST PE CTA from 09/06/[address] CHEST WO from 04/24/[address] CHEST WO from 04/09/2022 FINDINGS: LIVER: Normal size and echogenicity. Stable appearance 1.3 centimeters simple cyst... GALLBLADDER: No evidence of cholelithiasis. No evidence of wall thickening. No pericholecystic fluid identified. DANIELLE'S SIGN: Negative. BILIARY SYSTEM: No intrahepatic or extrahepatic biliary ductal dilation. KIDNEYS: Kidneys are symmetric in size. No evidence of renal calculi. No evidence of hydronephrosis. No renal mass identified. There are few tiny parapelvic cysts on the left. PANCREAS: Question of a mass in the body of the pancreas versus adjacent lymph node measuring 2.8 x 1 .9 x 2.4 cm. SPLEEN: Not enlarged. ABDOMINAL AORTA AND IVC: Visualized portions normal caliber. ASCITES: None seen. IMPRESSION: Question of a pancreatic mass versus adjacent lymph node. CT abdomen pelvis with IV an oral contrast recommended for further evaluation. No abnormality seen involving the gallbladder. No biliary dilatation. Unexpected findings DATA REPOSITORY:
== END 2022-09-22 00:53 ==
PROVIDERS: PCP Family Medicine; Visit Provider Family Medicine
DX: R10.9 Unspecified abdominal pain (principal); R11.0 Nausea; R17 Unspecified jaundice
CPT/HCPCS: 76700

== ENCOUNTER 2022-09-24 14:41 | Emergency (ER) | payer MEDICARE, BC, SELFPAY ==
[2022-09-24] VITALS (40 sets, daily range): BP systolic 115–152; BP diastolic 52–79; PULSE 63–87; RESP 11–24; O2SAT 95–100
--- NOTE | 2022-09-24 16:00 | DI.CT_ITS ---
Exam(s) CT ABDOMEN PELVIS W EXAM: CT ABDOMEN PELVIS W CLINICAL HISTORY: concerning outpatient abd US re: pancreasis. TECHNIQUE: Imaging Protocol: Axial computed tomography images with coronal and sagittal reformatted images were created and reviewed CONTRAST MATERIAL: Intravenous: Omnipaque 350 Contrast volume:100 ml Oral: / no COMPARISON: CT UPPER ABD WITH CONTRAST (P) from 04/12/2008 CT UPPER ABD WITH CONTRAST (P) from 04/12/[address] CHEST PE CTA from 09/06/[address] CHEST WO from 04/09/2022 US US ABDOMEN from 09/22/2022 FINDINGS: ABDOMEN: Lung Bases: Normal where visualized. Liver: Normal density. Small cyst superior right lobe. No suspicious mass. Gallbladder and biliary tract: No radiodense calculus or dilation. Pancreas: Ill-defined solid mass in the body of the pancreas measuring 5.1 x 5.6 by 4 cm. It encases and narrows the celiac axis and proximal branches. The splenic vein is severely attenuated proxima lly. There is narrowing at the portal splenic confluence. No portal vein thrombosis. Spleen: Normal. Kidneys: Normal size, contour and axis. No radiodense stones or obstructive uropathy. Small parapelv ic cysts in the left kidney. No suspicious masses seen. Lymph nodes: Small lymph nodes in the regio n of the kristine hepatis and portacaval region appears similar to 2009 exam. Adrenal glands: No masses seen. Abdominal Aorta: Abdominal portion non-dilated. Atherosclerotic changes. Soft tissues: Small fatty containing umbilical hernia. PELVIS: Bladder: Distended. No gross wall thickening. No calculi.No focal mass. Bowel: Large quantity of stool. No obstruction. No bowel wall thickening. Appendix normal. Peritoneal cavity: Trace amount of fluid around liver and right paracolic gutter. No focal collectio n. Bones: Degenerative changes. No lytic or blastic lesions identified. Reproductive organs: Prostate enlarged. Lymph nodes: Unremarkable. Impression: Ill-defined mass in the body of the pancreas suspicious for pancreatic carcinoma. There is vascular encasement but no evidence splenic infarct or bowel ischemia. RADIATION DOSE DELIVERED: 696.38mGy.cm Total DLP DATA REPOSITORY: All CT scans at this facility are submitted to the National Radiology Data Registry (NRDR) Dose Index Registry (DIR) with the [employer] (ACR). RADIATION OPTIMIZATION: All CT scans at this facility use at least one of these dose optimization te chniques: automated exposure control; mA and/or kV adjustment per patient size (includes targeted exa ms where dose is matched to clinical indication); or iterative reconstruction.
--- NOTE | 2022-09-24 16:16 | ED.GENADUL_ITS ---
Discharge Plan Disposition Patient Disposition: Home Discharge Details Clinical Impression: Pancreatic mass Primary Care Provider: Yohan Pino ED Provider: Rodri Jhaveri Home Meds and New Rx's Prescriptions: New ondansetron 4 mg tablet,disintegrating 4 mg PO Q8H PRN (Reason: nausea and vomiting) Qty: 20 0RF No Action multivitamin [Daily Multi-Vitamin] 1 EACH tablet 1 ea PO DAILY (DME) FreeStyle Lite Strips 1 EACH strip 1 ea Miscellaneous DIRECTED albuterol sulfate 8.5 GM HFA aerosol inhaler 2 puff Inhalation Q6H PRN nitroglycerin 0.4 MG tablet, sublingual 0.4 mg Sublingual ONCE metformin 500 MG tablet extended release 24hr 500 mg PO AC Rx Instructions: two tablets with breakfast, one with dinner cholecalciferol (vitamin D3) [Vitamin D3] 2,000 UNIT capsule 2,000 unit PO DAILY triamcinolone acetonide 0.1 % cream 1 applic topical BID Jardiance 10 mg tablet 10 mg PO DAILY clotrimazole 1 % solution 1 applic topical BID fluticasone furoate-vilanterol [Breo Ellipta] 100-25 mcg/dose blister with device 1 inh inhalation DAILY sennosides [Senokot] 8.6 mg tablet 17.2 mg PO DAILY spironolactone 25 mg tablet 25 mg PO DAILY atorvastatin [Lipitor] 40 MG tablet 40 mg PO HS aspirin [Ecotrin Low Strength] 81 MG tablet,delayed release (DR/EC) 81 mg PO HS acetaminophen [Tylenol] 325 MG tablet 325 - 650 mg PO Q4H PRN PRNQty: 0 0RF Rx Instructions: no more than 6 tabs per day docusate sodium 100 MG capsule 100 mg PO DAILY lisinopril 5 MG tablet 10 mg PO DAILY loratadine 10 MG tablet 10 mg PO DAILY Spiriva with HandiHaler 1 PUFF capsule, w/inhalation device 1 cap Inhalation DAILY Qty: 30 1RF magnesium 200 mg Tablet 400 mg PO DAILY Rx Instructions: dose 250mg Eliquis 5 mg Tablet 5 mg PO BID Discharge Instructions Instructions: Pancreatic Cancer (DC) Additional Instructions: Please follow-up closely with primary care team. We are working on setting up a referral to [facility] oncology team for next week for further evaluation. If you have any issues obtaining follow-up or have any worsening symptoms please return to the emergency department or call Medical Decision Making 77-year-old male brought in by family for evaluation of unintentional weight loss over the past several months decreased p.o. intake pain with eating and abnormal outpatient ultrasound concerning for pancreatic pathology. Patient appears dry with dry oral mucosa and skin, hemodynamically stable afebrile nontoxic abdomen slightly distended however nontender. Consider pancreatic lesion versus gastritis versus duodenitis versus less likely enterocolitis versus less likely cholecystitis or appendicitis. No suspicion of bowel obstruction. Decreased frequency of bowel movements due to decreased p.o. intake however normal brown stool per history. Will obtain CT abdomen pelvis fluids basic labs close reassessment 18: 41 pancreatic mass concerning for pancreatic adenocarcinoma, discussed CT findings with family. Patient will follow close with primary care and we will place a request for referral to oncology. Given home care instructions return precautions HPI General Date/Time Provider Initiated Documentation: 09/24/22 15:59 . HPI Narrative: 77-year-old male brought in by family for evaluation of acute on chronic abdominal pain, has had a 35 pound weight loss since June, unintentional, outpatient ultrasound concerning for pancreatic pathology. Pain after eating decreased p.o. intake over the past several months. Related Data Home Medications Medication Instructions Recorded Confirmed aspirin 81 mg tablet,delayed 81 mg PO HS 06/10/13 09/24/22 release (Ecotrin Low Strength) atorvastatin 40 mg tablet (Lipitor) 40 mg PO HS 06/10/13 09/24/22 albuterol sulfate 90 mcg/actuation 2 puff inhalation Q6H PRN 07/03/14 09/24/22 aerosol inhaler blood sugar diagnostic (FreeStyle 07/03/14 11/18/21 Lite Strips) multivitamin (Daily Multi-Vitamin 1 ea PO DAILY 07/03/14 09/24/22 tablet) nitroglycerin 0.4 mg sublingual 0.4 mg sublingual ONCE 07/03/14 09/24/22 tablet cholecalciferol (vitamin D3) 50 2,000 unit PO DAILY 08/16/14 09/24/22 mcg (2,000 unit) capsule (Vitamin D3) metformin 500 mg tablet,extended 500 mg PO AC 08/16/14 09/24/22 release 24hr acetaminophen 325 mg tablet 325 - 650 mg PO Q4H PRN PRN #0 tabs 08/09/15 09/24/22 (Tylenol) docusate sodium 100 mg capsule 100 mg PO DAILY 05/18/16 11/18/21 lisinopril 5 mg tablet 10 mg PO DAILY 05/18/16 09/24/22 loratadine 10 mg tablet 10 mg PO DAILY 05/18/16 11/18/21 tiotropium bromide 18 mcg capsule 1 cap inhalation DAILY ##30 05/20/16 09/24/22 with inhalation device (Spiriva with HandiHaler) apixaban 5 mg tablet (Eliquis) 5 mg PO BID 03/29/18 09/24/22 magnesium 200 mg tablet 400 mg PO DAILY 03/29/18 09/24/22 clotrimazole 1 % topical solution 1 applic topical BID 10/31/20 11/18/21 empagliflozin 10 mg tablet 10 mg PO DAILY 10/31/20 09/24/22 (Jardiance) fluticasone furoate 100 1 inh inhalation DAILY 10/31/20 09/24/22 mcg-vilanterol 25 mcg/dose inhalation powder (Breo Ellipta) sennosides 8.6 mg tablet (Senokot) 17.2 mg PO DAILY 10/31/20 11/18/21 spironolactone 25 mg tablet 25 mg PO DAILY 10/31/20 09/24/22 triamcinolone acetonide 0.1 % 1 applic topical BID 10/31/20 11/18/21 topical cream ondansetron 4 mg disintegrating 4 mg PO Q8H PRN nausea and 09/24/22 tablet vomiting #20 tabs Previous Rx's Medication Instructions Recorded acetaminophen 325 mg tablet 325 - 650 mg PO Q4H PRN PRN #0 tabs 08/09/15 (Tylenol) tiotropium bromide 18 mcg capsule 1 cap inhalation DAILY ##30 05/20/16 with inhalation device (Spiriva with HandiHaler) ondansetron 4 mg disintegrating 4 mg PO Q8H PRN nausea and 09/24/22 tablet vomiting #20 tabs Allergies Allergy/AdvReac Type Severity Reaction Status Date / Time Sulfa (Sulfonamide Allergy Intermediate Skin Rash Unverified 09/24/22 14:49 Antibiotics) metoprolol AdvReac Severe BRADYCARDIA Unverified 09/24/22 14:49 General Stated Complaint: Abd Prob KODY: 3 Review of Systems Narrative: Review of Systems Constitutional: Weight loss Eyes: negative ENT: negative Cardiovascular: negative Respiratory: negative Gastrointestinal: Abdominal pain, decreased p.o. intake : negative Musculoskeletal: negative Skin: negative Neurologic: negative Psych: negative PFSH All Active Problems (Updated 09/24/22 @ 18:43 by Rodir Jhaveri MD) Pancreatic mass (Acute) CAD (coronary artery disease) (Chronic) SOB (shortness of breath) (Acute) Atrial fibrillation (Chronic) COPD (chronic obstructive pulmonary disease) (Chronic) Diabetes mellitus (Chronic) Hx of CABG (Chronic) Hypertension (Chronic) Dyslipidemia (Chronic) Essential tremor (Chronic) CHF (congestive heart failure) (Chronic) DVT prophylaxis (Acute) Sensorineural hearing loss of both ears (Acute) Venous insufficiency (Acute) Balanitis (Acute) Ischemic cardiomyopathy (Acute) Sleep apnea (Acute) Sciatica of right side (Acute) Hypomagnesemia (Acute) [place] syndrome (Acute) Vitamin D deficiency (Acute) Sensorineural hearing loss, bilateral (Acute) History of excessive cerumen (Acute) Medical History (Updated 09/24/22 @ 18:43 by Rodri Jhaveri MD) Adenomatous polyps ASCVD (arteriosclerotic cardiovascular disease) Atrial flutter Coronary artery disease Diabetes mellitus type 2 in obese Hyperlipidemia Hypertension Impacted cerumen, left ear Sigmoid diverticulosis UTI (urinary tract infection) (08/04/14) Surgical History Colonoscopy - IV Sedation (~2009) Coronary Artery Bypass Gaft (CABG) (10/04/14) Hx of prior ablation treatment cardiac - 2018 Hx of tonsillectomy Family History Sister Diabetes CHF (congestive heart failure) Father , 62 Heart attack Stroke Brother Diabetes Kidney failure Social History Smoking/Tobacco Use Status: Former Tobacco Use Quit Date: 03/29/91 Smoking risk assessment performed?: Yes Alcohol Intake: never Drug use: Never Substance use type: does not use What is your relationship status?: Panel score (0-1 are the most socially isolated patients): 1 Do you feel safe at home: Yes Do you feel safe in your relationship?: Yes Additional [facility] history[facility] Ex[facility] Narrative Exam Narrative: Physical Examination General: alert, awake, cooperative, resting comfortably, no acute distress HEENT: normocephalic, atraumatic; PERRL, EOM intact, conjunctiva normal; no nasal discharge; dry oral mucosa Neck: supple, trachea midline; full ROM Chest: normal to inspection Respiratory: normal respiratory effort, speaking in full sentences, clear to auscultation, no wheezing, rales or rhonchi Cardiac: regular rate, regular rhythm, S1S2 intact, no murmurs rubs or gallops GI: abdomen soft, non-tender, mild distention; no palpable mass or hepatosplenomegaly Skin: Dry Neuro: AAOx3, normal speech, moving all extremities Psych: Appropriate mood and affect Course Vital Signs Vital signs: Vital Signs Pulse 75 09/24/22 14:46 Respiratory Rate 18 09/24/22 14:46 Blood Pressure 118/79 09/24/22 14:46 Pulse Oximetry 100 09/24/22 14:46 Pulse 64 09/24/22 15:23 Pulse 70 09/24/22 15:24 Respiratory Rate 11 L 09/24/22 15:24 Respiratory Effort Normal 09/24/22 15:26 Blood Pressure 135/70 09/24/22 15:23 Blood Pressure Mean 88 09/24/22 15:23 Blood Pressure Position Sitting 09/24/22 14:46 Pulse Oximetry 99 09/24/22 15:24 Oxygen Delivery Method Room Air 09/24/22 14:46 Oxygen Flow Rate 0 09/24/22 14:46 Pain Level 8 09/24/22 14:46
[2022-09-24] MEDS: Normal Saline 500 ML 1000 ML IV (16:21)
[2022-09-24] MEDS: Ondansetron 4 MG/2 ML VIAL IVP (16:22)
[2022-09-24 16:42] LABS: Abs Immature Grans 0.03 10^3/uL (0.0-0.06); Absolute Basophil Count 0.02 10^3/uL (0.0-0.2); Absolute Lymphocyte Count 1.59 10^3/uL (1.2-3.4); Absolute Monocyte Count 0.62 10^3/uL (0.1-0.8); Absolute Neutrophil Count 4.37 10^3/uL (1.2-6.7); Basophils % 0.3; Eosinophils % 1.5; HCT 44.1 % (40.0-50.0); HGB 14.9 g/dL (13.5-17.5); Immature Grans % 0.4; Lymphocytes % 23.6; MCH 29.6 pg (27.0-33.0); MCHC 33.8 % (32.0-36.0); MCV 88 fL (80-95); MPV 9.1 fL (8.0-11.0); Monocytes % 9.2; Platelet Count 238 10^3/uL (130-400); RBC 5.04 10^6/uL (4.36-5.78); RDW 14.1 % (11.8-14.1); RDW-SD 44.8 fL; WBC 6.73 10^3/uL (4.4-10.8)
[2022-09-24 16:55] LABS: ALT 22 U/L (16-63); AST 13 U/L (15-37); Albumin 3.5 g/dL (3.4-5.0); Alkaline Phosphatase 63 U/L (46-116); Anion Gap 15.4 mmol/L (3-11); BUN 15 mg/dL (7-18); Bilirubin, Total 0.9 mg/dL (0.2-1.0); CO2 21.6 mmol/L (21.0-32.0); CREATININE 0.9 mg/dL (0.70-1.30); Calcium 8.8 mg/dL (8.5-10.1); Chloride 96 mmol/L (98-107); Estimated GFR 86.88 (mL/min/1.73m2); Glucose 124 mg/dL (74-106); Lipase 11 U/L (16-77); Potassium 4.3 mmol/L (3.5-5.1); Sodium 133 mmol/L (136-145)
[2022-09-24] MEDS: Omnipaque 350 MG/ML 100 ML BTL IJ (17:26)
[2022-09-24] MEDS: Normal Saline Flush 10 ML SYR IVP (17:27)
[2022-09-24] MEDS: Normal Saline - Diluent 50 ML VIAL IJ (17:27)
--- NOTE | 2022-09-24 17:54 | DI.VRAD_ITS ---
PROCEDURE INFORMATION: Exam: CT Abdomen And Pelvis With Contrast Exam date and time: 09/24/2022 17:19 Age: 77 years old Clinical indication: Other: Pain TECHNIQUE: Imaging protocol: Computed tomography of the abdomen and pelvis with contrast. Contrast material: OMNIPAQUE 350; Contrast volume: 100 ml; Contrast route: IV; COMPARISON: US ABDOMEN 09/22/2022 11:04 FINDINGS: Lungs: Suspected mild pulmonary emphysema. Liver: Benign-appearing hepatic cyst. No hepatic masses. Gallbladder and bile ducts: Moderately distended gallbladder, possible mild wall thickening or pericholecystic inflammation without calcified stones. No significant biliary dilation or radiopaque stones in the biliary tree. Pancreas: See Retroperitoneal space finding. Spleen: No splenomegaly or focal lesions. Adrenal glands: No mass. Kidneys and ureters: Benign-appearing renal cysts and probable cysts. No renal masses or hydronephrosis bilaterally. Stomach and bowel: Colonic diverticulosis without diverticulitis. No focal pathology in the small bowel. Appendix: No evidence of appendicitis. Intraperitoneal space: Trace free fluid in the right upper quadrant. Retroperitoneal space: 5 x 5 x 4 cm upper retroperitoneal mass involving the pancreatic body, narrowing the portal splenic confluence, surrounding the celiac trunk, pancreatic atrophy. Vasculature: Atherosclerosis. No aortic aneurysm. Lymph nodes: Small upper abdominal lymph nodes may be metastatic. Urinary bladder: The urinary bladder is distended. Reproductive: Moderate prostatic enlargement. Bones/joints: Chronic bony changes with no acute fracture. Soft tissues: Miniscule focus of soft tissue in the umbilicus, indeterminate given pancreatic findings with follow-up warranted. IMPRESSION: 1. Findings most worrisome for a pancreatic adenocarcinoma with further details as above. 2. Moderately distended gallbladder with suspected mild inflammatory changes. Right upper quadrant ultrasound or MRCP is recommended if there is clinical concern for acute cholecystitis and/or developing biliary obstruction. 3. Trace free fluid in the right upper quadrant. 4. Additional findings as described. Dictated and Authenticated by: Louisa Jackson MD. Ordering:ZAIRE Mace MD
--- NOTE | 2022-09-24 18:42 | NUR.NOTE ---
Nursing Note: Referral given to Care Management for possible pancreatic cancer/ VENTURA, first of next week/ to [facility] Oncology.
--- NOTE | 2022-09-25 15:23 | PDOC.CMACT ---
Date of service: 09/25/22 Time of Service: 15:23 Care Management Activity Note Activity Note Text Activity Note Text: Andrés is seen in the ED for unintentional weight loss. At the request of ED provider, MYKE coordinates an urgent referral to [facility] Oncology to assist Andrés in obtaining an appointment for further evaluation and treatment of a pancreatic mass. He has Medicare and [facility] for insurance.
== END 2022-09-24 19:40 | disposition home or self-care (01) ==
PROVIDERS: Emergency Provider Emergency Medicine; PCP Family Medicine
DX: K86.89 Other specified diseases of pancreas (principal)
CPT/HCPCS: 80053; 83690; 96361; 96374; 99285; 74177; 85025; 99284; J2405; J3490

== ENCOUNTER 2022-11-06 16:45 | Outpatient (CLI) | payer MEDICARE, BC, SELFPAY ==
[2022-11-06 08:25] LABS: Abs Immature Grans 0.04 10^3/uL (0.0-0.06); Absolute Basophil Count 0.03 10^3/uL (0.0-0.2); Absolute Eosinophil Count 0.57 10^3/uL (0.0-0.7); Absolute Monocyte Count 0.76 10^3/uL (0.1-0.8); Absolute Neutrophil Count 5.72 10^3/uL (1.2-6.7); Basophils % 0.4; Eosinophils % 7.2; HCT 40.8 % (40.0-50.0); HGB 13.6 g/dL (13.5-17.5); Immature Grans % 0.5; Lymphocytes % 10.1; MCH 29.8 pg (27.0-33.0); MCHC 33.3 % (32.0-36.0); MCV 89 fL (80-95); MPV 9.3 fL (8.0-11.0); Monocytes % 9.6; Neutrophils % 72.2; Platelet Count 249 10^3/uL (130-400); RBC 4.57 10^6/uL (4.36-5.78); RDW 15.1 % (11.8-14.1); RDW-SD 49.9 fL; WBC 7.92 10^3/uL (4.4-10.8)
[2022-11-06 08:40] LABS: ALT 22 U/L (16-63); AST 19 U/L (15-37); Alkaline Phosphatase 70 U/L (46-116); Anion Gap 9.7 mmol/L (3-11); BUN 15 mg/dL (7-18); Bilirubin, Total 1.2 mg/dL (0.2-1.0); CO2 28.3 mmol/L (21.0-32.0); CREATININE 0.9 mg/dL (0.70-1.30); Calcium 9.3 mg/dL (8.5-10.1); Chloride 102 mmol/L (98-107); Estimated GFR 86.88 (mL/min/1.73m2); Glucose 180 mg/dL (74-106); Potassium 3.5 mmol/L (3.5-5.1); Sodium 140 mmol/L (136-145); Total Protein 6.7 g/dL (6.4-8.2)
[2022-11-09 13:59] LABS: CA 19-9 8225 U/mL (<35)
== END 2022-11-06 16:46 | disposition home or self-care (01) ==
LOC: LBO 16:45
PROVIDERS: PCP Family Medicine; Visit Provider Internal Medicine Hematology & Oncology
DX: C25.0 Malignant neoplasm of head of pancreas (principal)
CPT/HCPCS: 36415; 80053; 85025; 86301

== ENCOUNTER 2022-11-13 02:49 | Outpatient (CLI) | payer MEDICARE, BC, SELFPAY ==
[2022-11-13 12:40] LABS: Abs Immature Grans 0.03 10^3/uL (0.0-0.06); Absolute Basophil Count 0.04 10^3/uL (0.0-0.2); Absolute Lymphocyte Count 0.91 10^3/uL (1.2-3.4); Absolute Monocyte Count 0.66 10^3/uL (0.1-0.8); Absolute Neutrophil Count 4.83 10^3/uL (1.2-6.7); Basophils % 0.5; Eosinophils % 13.4; HCT 41.5 % (40.0-50.0); HGB 13.6 g/dL (13.5-17.5); Immature Grans % 0.4; Lymphocytes % 12.2; MCH 29.4 pg (27.0-33.0); MCHC 32.8 % (32.0-36.0); MCV 90 fL (80-95); MPV 9.2 fL (8.0-11.0); Monocytes % 8.8; Neutrophils % 64.7; Platelet Count 248 10^3/uL (130-400); RBC 4.62 10^6/uL (4.36-5.78); RDW-SD 49.6 fL; WBC 7.47 10^3/uL (4.4-10.8)
[2022-11-13 12:55] LABS: ALT 54 U/L (16-63); AST 51 U/L (15-37); Alkaline Phosphatase 90 U/L (46-116); BUN 15 mg/dL (7-18); Bilirubin, Total 0.9 mg/dL (0.2-1.0); CREATININE 0.8 mg/dL (0.70-1.30); Chloride 106 mmol/L (98-107); Estimated GFR 90.02 (mL/min/1.73m2); Glucose 164 mg/dL (74-106); Sodium 142 mmol/L (136-145); Total Protein 6.7 g/dL (6.4-8.2)
[2022-11-16 10:46] LABS: CA 19-9 6615 U/mL (<35)
== END 2022-11-13 02:50 | disposition home or self-care (01) ==
LOC: LBO 02:51
PROVIDERS: PCP Family Medicine; Visit Provider Internal Medicine Hematology & Oncology
DX: C25.0 Malignant neoplasm of head of pancreas (principal)
CPT/HCPCS: 36415; 80053; 85025; 86301

== ENCOUNTER → 2022-12-04 09:10 | Outpatient (BNVA) | payer MEDICARE, BC, SELFPAY | PROVIDERS: PCP Family Medicine; Referring Provider Family Medicine; Visit Provider Surgery | DX: R18.8 Other ascites (principal) | CPT/HCPCS: 49082; 99212 ==

== ENCOUNTER → 2022-12-16 12:58 | Outpatient (BNVA) | payer MEDICARE, BC, SELFPAY | PROVIDERS: PCP Family Medicine; Referring Provider Family Medicine; Visit Provider Surgery | DX: R18.8 Other ascites (principal); C25.9 Malignant neoplasm of pancreas, unspecified; Z51.5 Encounter for palliative care | CPT/HCPCS: 49082 ==

== ENCOUNTER 2022-12-20 01:18 | Emergency (ER) | payer MEDICARE, BC, SELFPAY ==
[2022-12-20 01:24] VITALS: PULSE 99; RESP 16; TEMP 36.3; O2SAT 97
--- NOTE | 2022-12-20 01:30 | DI.CT_ITS ---
Exam(s) CT HEAD CERVICAL SPINE WO EXAM: CT HEAD CERVICAL SPINE WO CLINICAL HISTORY: fall, on thinners, hit posterior head. TECHNIQUE: Imaging Protocol: Axial computed tomography images with coronal and sagittal reformatted images were created and reviewed FINDINGS: CT Head: Ventricles and Extra axial spaces: Normal in size and morphology for the patient's age. Hemorrhage: None. Cerebral parenchyma: There are areas of decreased attenuation in the white matter consistent with sma ll vessel ischemic disease. Midline shift: None. Brainstem/Cerebellum: Normal. Calvarium: Normal. Visualized Paranasal sinuses/Mastoids: Clear. Soft Tissues: Unremarkable. CT Cervical Spine: Bones: No acute fracture or subluxation. There are degenerative changes seen in the cervical spine. Soft Tissues: Unremarkable. Lung Apices: Clear. IMPRESSION: 1. No acute intracranial process. 2. No acute fracture or subluxation in the cervical spine. RADIATION DOSE DELIVERED: 1,340.6mGy.cm Total DLP DATA REPOSITORY: All CT scans at this facility are submitted to the National Radiology Data Registry (NRDR) Dose Index Registry (DIR) with the [employer] (A[employer]). RADIATION OPTIMIZATION: All CT scans at this facility use at least one of these dose optimization te chniques: automated exposure control; mA and/or kV adjustment per patient size (includes targeted exa ms where dose is matched to clinical indication); or iterative reconstruction.
--- NOTE | 2022-12-20 02:09 | W.ED.GENAD ---
Discharge Plan Disposition Patient Disposition: Home Discharge Details Clinical Impression: Laceration of scalp, Fall Primary Care Provider: Yohan Pino ED Provider: Dom Houser Home Meds and New Rx's Prescriptions: No Action (DME) FreeStyle Lite Strips 1 EACH strip 1 ea Miscellaneous DIRECTED albuterol sulfate 8.5 GM HFA aerosol inhaler 2 puff Inhalation Q6H PRN nitroglycerin 0.4 MG tablet, sublingual 0.4 mg Sublingual ONCE cholecalciferol (vitamin D3) [Vitamin D3] 2,000 UNIT capsule 2,000 unit PO DAILY fluticasone furoate-vilanterol [Breo Ellipta] 100-25 mcg/dose blister with device 1 inh inhalation DAILY sennosides [Senokot] 8.6 mg tablet 17.2 mg PO DAILY metformin 500 mg tablet extended release 24hr 1,000 mg PO BID Rx Instructions: two tablets with breakfast, one with dinner [id number] 24,000-76,000 -120,000 unit capsule,delayed release(DR/EC) 1 - 2 cap PO 6X/DAY Rx Instructions: administer with meals and/or snacks oxycodone 5 mg tablet 5 - 10 mg PO Q4H PRN potassium chloride 20 mEq tablet extended release 20 meq PO DAILY polyethylene glycol 3350 17 gram/dose powder 17 g PO DAILY PRN morphine concentrate 100 mg/5 mL (20 mg/mL) solution See Rx Instructions PO Q1H PRN MDD 120 mg Qty: 30 0RF Rx Instructions: 0.25-1.0 ml orally every 1 hour, as needed; HOSPICE lorazepam 1 mg tablet 1 mg PO Q4H PRN (Reason: anxiety) Qty: 10 5RF Rx Instructions: hospice gabapentin 100 mg capsule 200 mg PO DAILY Rx Instructions: if tolerated after 1 week, may increase to 200mg fentanyl 25 mcg/hr patch 72 hour 1 patch transdermal Q72H MDD 75 mcg Qty: 5 0RF Rx Instructions: hospice apply with 12 mcg patch for 37 mcg dose total fentanyl 12 mcg/hr patch 72 hour 1 patch transdermal Q72H MDD 75 mcg Qty: 5 0RF Rx Instructions: apply with 25 mcg patch for total of 37 mcg dose hospice loratadine 10 MG tablet 10 mg PO DAILY ondansetron 4 mg tablet,disintegrating 4 mg PO Q8H PRN (Reason: nausea and vomiting) Qty: 20 0RF magnesium 200 mg Tablet 400 mg PO DAILY Rx Instructions: dose 250mg Eliquis 5 mg Tablet 5 mg PO BID multivitamin [Men's Multi-Vitamin] Tablet 1 tab PO DAILY Discharge Instructions Instructions: Care For Your Absorbable Stitches (ED) Additional Instructions: At this time the CAT scan shows no evidence of bleed or fracture thankfully. Please keep the area clean and dry. Monitor closely for any redness, drainage or discharge. Absorbable sutures will come out on their own in 10 to 12 days. If they have not you can gently rub warm soapy water on the area to help them come off. For long-term scar cosmesis, please make sure to avoid any sun to the area for the next year. Apply moisturizer or vitamin E to the area twice daily for the next 12 months for the best chance of wound/scar medication. Please take a daily multivitamin as well as this can help in wound healing. If you notice any worsening of your symptoms, or any new symptoms such as vomiting, diarrhea, fever, chills, shortness of breath, chest pain, numbness, weakness, or fainting , please return immediately to the emergency department for reevaluation. Please follow up with your primary care provider as soon as possible for reassessment and reevaluation. As always, it was a pleasure participating in your medical care today. Referrals: Yohan Pino [Primary Care Provider] - Medical Decision Making This is an extremely pleasant 77-year-old male with a past medical history of pancreatic cancer who is currently on hospice, COPD, atrial fibrillation on Eliquis, who presents today for evaluation of fall. Patient slipped out of his bed. He hit the back of his head. No loss of consciousness. He recalls the entire event. He is on Eliquis and so they are concerned and patient was brought in for further assessment. A small amount of bleeding was noted. Last tetanus shot was over 10 years ago. Patient denies any other complaints. No other modifying factors at this time. Exam demonstrates a very well-appearing male, no signs of trauma aside for small laceration on the posterior scalp. No cervical thoracic or lumbar spine tenderness. Differential size for simple laceration, however because of his Eliquis use we will get a CT scan to rule out acute bleed or fracture. We will suture the area update his tetanus monitor closely and reassess. 1 simple interrupted suture was placed. CT scan shows no acute process. Tetanus was updated. Patient tolerated procedure well. Patient stable, neurologic exam normal. Patient stable for discharge. Discussed red flags for which to return. I have extensively reviewed the treatment plan and discharge instructions with the patient. I have addressed all patient concerns at this time. The patient was made aware of what symptoms to monitor for that would warrant a return to the emergency department. Discussed the plan with the patient, they demonstrate verbal understanding and agreement with our assessment and plan at this time. The documentation in this chart was dictated using [employer] dictation software. Please excuse any dictation errors. FINDINGS: Brain: Periventricular white matter lucencies compatible with chronic microvascular ischemic changes. No intracranial hemorrhage. No mass effect or midline shift. Cerebral ventricles: The ventricles and sulci are prominent compatible with age-related involutional changes. Paranasal sinuses: Visualized sinuses are unremarkable. No fluid levels. Mastoid air cells: Visualized mastoid air cells are well aerated. Bones/joints: Unremarkable. No acute fracture. Soft tissues: Unremarkable. IMPRESSION: No acute intracranial findings. FINDINGS: Bones/joints: Normal alignment. No acute fracture or subluxation. Multilevel degenerative disc disease and facet arthritis. Lungs: Lung apices are normal. Soft tissues: Unremarkable. IMPRESSION: No fracture. Thank you for allowing us to participate in the care of your patient. Dictated and Authenticated by: Elvis Davis MD 12/20/2022 2:54 AM Eastern Time ([place] & [place]) HPI General Date/Time Provider Initiated Documentation: 12/20/22 01:31. HPI Narrative: This is an extremely pleasant 77-year-old male with a past medical history of pancreatic cancer who is currently on hospice, COPD, atrial fibrillation on Eliquis, who presents today for evaluation of fall. Patient slipped out of his bed. He hit the back of his head. No loss of consciousness. He recalls the entire event. He is on Eliquis and so they are concerned and patient was brought in for further assessment. A small amount of bleeding was noted. Last tetanus shot was over 10 years ago. Patient denies any other complaints. No other modifying factors at this time. Related Data Home Medications Medication Instructions Recorded Confirmed albuterol sulfate 90 mcg/actuation 2 puff inhalation Q6H PRN 07/03/14 12/20/22 aerosol inhaler blood sugar diagnostic (FreeStyle 07/03/14 12/16/22 Lite Strips) nitroglycerin 0.4 mg sublingual 0.4 mg sublingual ONCE 07/03/14 12/20/22 tablet cholecalciferol (vitamin D3) 50 2,000 unit PO DAILY 08/16/14 12/20/22 mcg (2,000 unit) capsule (Vitamin D3) loratadine 10 mg tablet 10 mg PO DAILY 05/18/16 12/20/22 apixaban 5 mg tablet (Eliquis) 5 mg PO BID 03/29/18 12/20/22 magnesium 200 mg tablet 400 mg PO DAILY 03/29/18 12/20/22 fluticasone furoate 100 1 inh inhalation DAILY 10/31/20 12/20/22 mcg-vilanterol 25 mcg/dose inhalation powder (Breo Ellipta) sennosides 8.6 mg tablet (Senokot) 17.2 mg PO DAILY 10/31/20 12/20/22 ondansetron 4 mg disintegrating 4 mg PO Q8H PRN nausea and 09/24/22 12/20/22 tablet vomiting #20 tabs [id number]-dpchehgm-ghpwdfk 1 - 2 cap PO 6X/DAY 11/17/22 12/20/22 24,000-76,000-120,000 unit capsule,delayed rel metformin 500 mg tablet,extended 1,000 mg PO BID 11/17/22 12/20/22 release 24hr oxycodone 5 mg tablet 5 - 10 mg PO Q4H PRN 11/17/22 12/20/22 polyethylene glycol 3350 17 17 g PO DAILY PRN 11/17/22 12/20/22 gram/dose oral powder potassium chloride 20 mEq 20 meq PO DAILY 11/17/22 12/20/22 tablet,extended release lorazepam 1 mg tablet 1 mg PO Q4H PRN anxiety #10 tabs 11/24/22 12/20/22 morphine concentrate 100 mg/5 mL See Rx Instructions PO Q1H PRN #30 11/24/22 12/20/22 (20 mg/mL) oral solution mL gabapentin 100 mg capsule 200 mg PO DAILY 11/27/22 12/20/22 fentanyl 12 mcg/hr transdermal 1 patch transdermal Q72H #5 ea 12/17/22 12/20/22 patch fentanyl 25 mcg/hr transdermal 1 patch transdermal Q72H #5 ea 12/17/22 12/20/22 patch multivitamin 1 tab PO DAILY 12/20/22 12/20/22 Previous Rx's Medication Instructions Recorded ondansetron 4 mg disintegrating 4 mg PO Q8H PRN nausea and 09/24/22 tablet vomiting #20 tabs lorazepam 1 mg tablet 1 mg PO Q4H PRN anxiety #10 tabs 11/24/22 morphine concentrate 100 mg/5 mL See Rx Instructions PO Q1H PRN #30 11/24/22 (20 mg/mL) oral solution mL fentanyl 12 mcg/hr transdermal 1 patch transdermal Q72H #5 ea 12/17/22 patch fentanyl 25 mcg/hr transdermal 1 patch transdermal Q72H #5 ea 12/17/22 patch Allergies Allergy/AdvReac Type Severity Reaction Status Date / Time Sulfa (Sulfonamide Allergy Intermediate Skin Rash Unverified 12/20/22 01:29 Antibiotics) metoprolol AdvReac Severe BRADYCARDIA Unverified 12/20/22 01:29 General Stated Complaint: Fall/Non TraumaCriteria KODY: 3 Review of Systems All systems reviewed & are unremarkable except as noted in HPI and below PFSH All Active Problems (Updated 12/20/22 @ 02:42 by Dom Houser DO) Laceration of scalp (Acute) Fall (Acute) Malignant ascites (Acute) Hospice care (Acute) Pancreatic cancer (Acute) CAD (coronary artery disease) (Chronic) SOB (shortness of breath) (Acute) Atrial fibrillation (Chronic) COPD (chronic obstructive pulmonary disease) (Chronic) Diabetes mellitus (Chronic) Hx of CABG (Chronic) Hypertension (Chronic) Dyslipidemia (Chronic) Essential tremor (Chronic) CHF (congestive heart failure) (Chronic) DVT prophylaxis (Acute) Sensorineural hearing loss of both ears (Acute) Venous insufficiency (Acute) Balanitis (Acute) Ischemic cardiomyopathy (Acute) Sleep apnea (Acute) Sciatica of right side (Acute) Hypomagnesemia (Acute) Hampton syndrome (Acute) Vitamin D deficiency (Acute) Sensorineural hearing loss, bilateral (Acute) History of excessive cerumen (Acute) Medical History Adenomatous polyps ASCVD (arteriosclerotic cardiovascular disease) Atrial flutter Coronary artery disease Diabetes mellitus type 2 in obese Hyperlipidemia Hypertension Impacted cerumen, left ear Malignant neoplasm of head of pancreas Sigmoid diverticulosis UTI (urinary tract infection) (08/04/14) Surgical History Colonoscopy - IV Sedation (~2009) Coronary Artery Bypass Gaft (CABG) (10/04/14) Hx of prior ablation treatment cardiac - 2018 Hx of tonsillectomy Family History Sister Diabetes CHF (congestive heart failure) Father , 62 Heart attack Stroke Brother Diabetes Kidney failure Social History Smoking/Tobacco Use Status: Former Tobacco Use Quit Date: 03/29/91 Smoking risk assessment performed?: Yes Alcohol Intake: never Drug use: Never Substance use type: does not use Current gender identity: male What is your relationship status?: Panel score (0-1 are the most socially isolated patients): 1 Do you feel safe at home: Yes Do you feel safe in your relationship?: Yes Additional Social history: unable to [facility] Ex[facility] Narrative Exam Narrative: 1.Const: Well-nourished, Well-developed, appearing stated age 2.Eyes: PERRL, no conjunctival injection, and symmetrical lids. 3.ENT: Atraumatic external nose and ears. Moist MM. Neck: Symmetric, trachea midline, No thyromegaly. There is no evidence of raccoon eyes, kmi sign, CSF rhinorrhea, mastoid tenderness, cranial crepitus, hemotympanum, exophthalmos, or hyphema. Patient demonstrates intact dentition with no signs of tooth avulsion or fracture, no signs of jaw deformity, no evidence of a LeFort's fracture, with an intact palate, nose and orbital region. There is no evidence of a nasal septal hematoma. No proptosis. Jaw closes symmetrically. Airway is clear. 4.CVS: +S1/S2, No murmurs or gallops. Peripheral pulses 2+ and equal in all extremities. Brisk capillary refill in all extremities. 5.RESP: Unlabored respiratory effort. Clear to auscultation bilaterally. No wheezes rales or rhonchi 6.GI: Soft, Nontender/Nondistended, No hepatosplenomegaly. No guarding or rebound. 7.MSK: Normocephalic/Atraumatic, Extremities w/o deformity or ttp No cyanosis or clubbing, Normal movement of all extremities 8.Skin: Warm, Dry. No rashes or lesions. Small 1.5 cm laceration to the posterior scalp. No active bleeding. No evidence of deep tissue involvement. No bony depression. 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 Sensation grossly intact, no focal neurologic deficits. All 6 cardinal planes of vision are fully intact. No evidence of rotatory or vertical nystagmus. The patient demonstrated a normal afuant-dizo-lomoom, good dexterity. There was no evidence of dysdiadochokinesia. Patient was able to ambulate without difficulty. There was no wide-based gait. Romberg testing was normal. Qlpv-uy-fyce testing was normal. Sensation was intact bilaterally as well as muscle strength bilaterally for all extremities. Patient was able to verbalize butter cup with no slurring, or miss pronunciation. 10.Psych: (AAO) x3. Appropriate mood and affect Course Vital Signs Vital signs: Vital Signs Temperature 36.3 C L 12/20/22 01:24 Pulse 99 H 12/20/22 01:24 Respiratory Rate 16 12/20/22 01:24 Pulse Oximetry 97 12/20/22 01:24 Temperature 36.3 C L 12/20/22 01:24 Temperature Source Temporal Artery Scan 12/20/22 01:24 Pulse 99 H 12/20/22 01:24 Respiratory Rate 16 12/20/22 01:24 Respiratory Effort Normal 12/20/22 01:24 Pulse Oximetry 97 12/20/22 01:24 Oxygen Delivery Method Room Air 12/20/22 01:24 Oxygen Flow Rate 0 12/20/22 01:24 Pain Level 6 12/20/22 01:24 Procedures Laceration Laceration 1: Site: scalp Size (cm): 1.5 Description: linear Depth: simple, single layer Local Anesthetic: Lidocaine 1% Amount of anesthesia used (mL): 4 Pre-repair: wound explored, irrigated extensively and deep structures intact Skin layer closed with: other (Chromic Gut) Size (cm): 5-0 Number of sutures: 1 Technique: simple, interrupted
--- NOTE | 2022-12-20 02:54 | DI.VRAD_ITS ---
PROCEDURE INFORMATION: Exam: CT Head Without Contrast Exam date and time: 12/20/2022 2:00 AM Age: 77 years old Clinical indication: Injury or trauma; Fall; Blunt trauma (contusions or hematomas) TECHNIQUE: Imaging protocol: Computed tomography of the head without contrast. COMPARISON: CT Head^HEAD ROUTINE (Adult) 04/19/2018 11:52 AM FINDINGS: Brain: Periventricular white matter lucencies compatible with chronic microvascular ischemic changes. No intracranial hemorrhage. No mass effect or midline shift. Cerebral ventricles: The ventricles and sulci are prominent compatible with age-related involutional changes. Paranasal sinuses: Visualized sinuses are unremarkable. No fluid levels. Mastoid air cells: Visualized mastoid air cells are well aerated. Bones/joints: Unremarkable. No acute fracture. Soft tissues: Unremarkable. IMPRESSION: No acute intracranial findings. PROCEDURE INFORMATION: Exam: CT Cervical Spine Without Contrast Exam date and time: 12/20/2022 2:00 AM Age: 77 years old Clinical indication: Injury or trauma; Fall; Blunt trauma (contusions or hematomas) TECHNIQUE: Imaging protocol: Computed tomography of the cervical spine without contrast. COMPARISON: CT CHEST WO 04/09/2022 7:49 AM FINDINGS: Bones/joints: Normal alignment. No acute fracture or subluxation. Multilevel degenerative disc disease and facet arthritis. Lungs: Lung apices are normal. Soft tissues: Unremarkable. IMPRESSION: No fracture. Dictated and Authenticated by: Elvis Davis MD. Ordering:SILAVNA Fernandes MD
[2022-12-20 03:06] VITALS: BP 112/65; PULSE 89; RESP 18; O2SAT 98
== END 2022-12-20 03:06 | disposition home or self-care (01) ==
PROVIDERS: Emergency Provider Student in an Organized Health Care Education/Training Program; PCP Family Medicine
DX: S01.01XA Laceration without foreign body of scalp, initial encounter (principal); W06.XXXA Fall from bed, initial encounter; Z79.01 Long term (current) use of anticoagulants; J44.9 Chronic obstructive pulmonary disease, unspecified; I10 Essential (primary) hypertension; Z87.891 Personal history of nicotine dependence
CPT/HCPCS: 12001; 90471; 99284; 70450; 72125

== ENCOUNTER → 2022-12-23 13:51 | Outpatient (BNVA) | payer MEDICARE, BC, SELFPAY | PROVIDERS: PCP Family Medicine; Visit Provider Surgery | DX: R18.8 Other ascites (principal); Z51.5 Encounter for palliative care | CPT/HCPCS: 49082; 99212 ==

== ENCOUNTER → 2022-12-30 13:57 | Outpatient (BNVA) | payer MEDICARE, BC, SELFPAY | PROVIDERS: PCP Family Medicine; Visit Provider Surgery | DX: R18.8 Other ascites (principal) | CPT/HCPCS: 49082; 99212 ==

== ENCOUNTER → 2023-01-06 14:07 | Outpatient (BNVA) | payer MEDICARE, BC, SELFPAY | PROVIDERS: PCP Family Medicine; Referring Provider Family Medicine; Visit Provider Surgery | DX: R18.8 Other ascites (principal); C25.9 Malignant neoplasm of pancreas, unspecified; Z51.5 Encounter for palliative care | CPT/HCPCS: 49082 ==

== ENCOUNTER → 2023-01-13 14:03 | Outpatient (BNVA) | payer MEDICARE, BC, SELFPAY | PROVIDERS: PCP Family Medicine; Referring Provider Family Medicine; Visit Provider Surgery | DX: R18.8 Other ascites (principal); Z51.5 Encounter for palliative care | CPT/HCPCS: 49082 ==

== ENCOUNTER → 2023-01-20 13:00 | Outpatient (BNVA) | payer MEDICARE, BC, SELFPAY | PROVIDERS: PCP Family Medicine; Visit Provider Surgery | DX: R18.8 Other ascites (principal); Z51.5 Encounter for palliative care | CPT/HCPCS: 49082 ==

== ENCOUNTER 2023-01-23 05:55 | Inpatient (IN) | payer OTHER, SELFPAY ==
--- NOTE | 2023-01-23 06:07 | W.PM.HP.N ---
Date of service: 01/23/23 Time of Service: 10:15 Assessment and Plan Assessment and plan (1) Hospice care: Status: Acute Assessment and plan: Henny is admitted to hospital for hospice symptom management. Tentative plan for returning home if symptoms become controlled, improving w/IVF and antiemetics. Will need WC and bedside commode on discharge - reviewed current status indicates a transition to EoL coming, family appears aware and understands, goal of comfort above all else. - life expectancy hours to days, less likely weeks (2) Pancreatic cancer: Status: Acute Assessment and plan: w/weekly paracentesis w/Dr. Kellogg, will consider consult in next few days for evaluation (3) Vomiting: Status: Acute Assessment and plan: last emesis 5am, now w/scopolamine in place reviewed IV nature of antiemetics to avoid PO if unable to tolerate IV Zofran, Compazine PRN; lorazepam also available pantoprazole 40mg IV BID started, carafate PO ordered if tolerating PO meds, for comfort - continue for now d/t suspected GI bleed, re-evaluate (4) Weakness: Status: Acute Assessment and plan: IVF w/NS for suspected dehydration for comfort - improved per family report - reduced infusion rate to 15mL/hr, from 30mL, reviewed w/family, concern w/fluid overload - consider d/c fluids pending symptom response will need WC and commode at home on discharge - remain BB at this time w/repositioning for comfort (5) Pain: Status: Acute Assessment and plan: continue fentanyl 50mcg/hr TD continue apap PRN, ordered PO, IV and AR morphine 2-4mg IVP q1h PRN, reviewed w/family; some concern d/t unwanted SE previously, okay with trialing if needed w/uncontrolled pain (6) Constipation: Status: Acute Assessment and plan: BM meds ordered; last BM this morning hold for now (7) Malignant ascites: Status: Acute Assessment and plan: f/b Dr. Kellogg outpatient will consult PRN History of Present Illness Narrative: Mr. Shaihk is a 77 y/o M currently enrolled in hospice r/t pancreatic cancer currently hospitalized for hospice symptom management. PMHx sig for CHF, CAD, a fib (on Eliquis), COPD, DM; present today Henny, his Josy, son's Alicia, daughter Myrna, grandson Parish Shaikh had been stable in home on hospice. On Wednesday evening he began declining w/increased weakness and dizziness. In the past 24-48 hours he has had increased uncontrolled nausea and vomiting w/reported brown emesis. There have been some intermittent periods where he has had a delayed response, they denies unresponsive periods, slurred speech or unilateral changes in strength. he was pale, cool and diaphoretic. His BPs were low on nursing visit overnight, first systolic in 60's, then 90's, other VS remained WNL. He was pale and diaphoretic - he and his family have requested to present to hospital for symptom management Pain: Pain controlled w/fentanyl 50mcg/hr TD patch, last changed 01/22/23 PM, dose last increased around 2 weeks ago. apap PRN averaging 122x/wk, mostly for complained abdominal pain. - c/o abdominal discomfort currently, no different from usual complaint, preference for PO Tylenol; aware of morphine IV available, denies Intake: decreased for a few days - Nausea/Vomiting: last vomit 5a around 1 quart, per family EMS report said it looked like blood. now w/scopolamine patch on. He has been taking ASA and Eliquis at home. did not take meds last night - Henny reports some mild nausea, would like to hold on other antiemetics currently, aware of scopolamine patch. - he is tolerating sips of water currently; family concerned w/dehydration, wonder about IVFs - He has received some IVF since arriving this morning and is feeling better, family reports he is more alert now, has more color; they are aware that goal is comfort w/IVF, not necessarily improvement in VS. VS on intake BP 85/61, HR 106bpm; on reeval s/p fluids BP 109/75, HR 86bpm Bowels: did have mild constipation sxs yesterday, was given small enema last night w/some effect last night, last BM this morning, loose. BM meds on hold at this time Urine: h/o Palmer cath discomfort, preference for no palmer at this time, aware of comfort techniques to improve catheter access, will hold for now and reassess based on henny's preferences He does have weekly paracentesis, last performed on 01/20/23, w/Dr. Kellogg. They have a f/u scheduled for Wednesday They do not have a WC or commode at home is visiting at 11a this morning His favorite holiday is , his house is all decorated and he had been looking forward to trick or treaters on Wednesday. Family is comfortable waiting to see how the next day or two go and reassess if he can return home for holiday. They feel he will be comfortable seeing pictures if getting home is not feasible by Wednesday. Review of Systems Narrative: as per HPI PFSH All Active Problems End of life care (Acute) Blood in urine (Acute) Difficulty urinating (Acute) Constipation (Acute) Pain (Acute) Weakness (Acute) Vomiting (Acute) Malignant ascites (Acute) Hospice care (Acute) Pancreatic cancer (Acute) CAD (coronary artery disease) (Chronic) SOB (shortness of breath) (Acute) Atrial fibrillation (Chronic) COPD (chronic obstructive pulmonary disease) (Chronic) Diabetes mellitus (Chronic) Hx of CABG (Chronic) Hypertension (Chronic) Dyslipidemia (Chronic) Essential tremor (Chronic) CHF (congestive heart failure) (Chronic) DVT prophylaxis (Acute) Sensorineural hearing loss of both ears (Acute) Venous insufficiency (Acute) Balanitis (Acute) Ischemic cardiomyopathy (Acute) Sleep apnea (Acute) Sciatica of right side (Acute) Hypomagnesemia (Acute) [place] syndrome (Acute) Vitamin D deficiency (Acute) Sensorineural hearing loss, bilateral (Acute) History of excessive cerumen (Acute) Medical History Malignant neoplasm of head of pancreas Impacted cerumen, left ear Atrial flutter ASCVD (arteriosclerotic cardiovascular disease) Hypertension Diabetes mellitus type 2 in obese Hyperlipidemia Adenomatous polyps Coronary artery disease Sigmoid diverticulosis UTI (urinary tract infection) (08/04/14) Surgical History Hx of prior ablation treatment cardiac - 2018 Hx of tonsillectomy Colonoscopy - IV Sedation (~2009) Coronary Artery Bypass Gaft (CABG) (10/04/14) Family History Sister Diabetes CHF (congestive heart failure) Father , 62 Heart attack Stroke Brother Diabetes Kidney failure Social History Smoking/Tobacco Use Status: Former Tobacco Use Quit Date: 03/29/91 Smoking risk assessment performed?: Yes Alcohol Intake: never Drug use: Never Substance use type: does not use Housing: house Current gender identity: male What is your relationship status?: Panel score (0-1 are the most socially isolated patients): 1 Do you feel safe at home: Yes Do you feel safe in your relationship?: Yes Additional Social history: [facility] Med[facility] Allergies and Home Medications Allergies Allergy/AdvReac Type Severity Reaction Status Date / Time Sulfa (Sulfonamide Allergy Intermediate Skin Rash Unverified 12/30/22 14:07 Antibiotics) metoprolol AdvReac Severe BRADYCARDIA Unverified 12/30/22 14:07 Home Medications Medication Instructions Recorded Confirmed Type albuterol sulfate 90 mcg/actuation 2 puff inhalation Q6H PRN 07/03/14 01/20/23 History aerosol inhaler blood sugar diagnostic (FreeStyle 07/03/14 01/20/23 History Lite Strips) nitroglycerin 0.4 mg sublingual 0.4 mg sublingual ONCE 07/03/14 01/20/23 History tablet cholecalciferol (vitamin D3) 50 2,000 unit PO DAILY 08/16/14 01/20/23 History mcg (2,000 unit) capsule (Vitamin D3) loratadine 10 mg tablet 10 mg PO DAILY 05/18/16 01/20/23 History apixaban 5 mg tablet (Eliquis) 5 mg PO BID 03/29/18 01/20/23 History magnesium 200 mg tablet 400 mg PO DAILY 03/29/18 01/20/23 History fluticasone furoate 100 1 inh inhalation DAILY 10/31/20 01/20/23 History mcg-vilanterol 25 mcg/dose inhalation powder (Breo Ellipta) sennosides 8.6 mg tablet (Senokot) 17.2 mg PO DAILY 10/31/20 01/20/23 History ondansetron 4 mg disintegrating 4 mg PO Q8H PRN nausea and 09/24/22 01/20/23 Rx tablet vomiting #20 tabs gvckml-pcfnaspl-jibeaba 1 - 2 cap PO 6X/DAY 11/17/22 01/20/23 History 24,000-76,000-120,000 unit capsule,delayed rel metformin 500 mg tablet,extended 1,000 mg PO BID 11/17/22 01/20/23 History release 24hr oxycodone 5 mg tablet 5 - 10 mg PO Q4H PRN 11/17/22 01/20/23 History polyethylene glycol 3350 17 17 g PO DAILY PRN 11/17/22 01/20/23 History gram/dose oral powder potassium chloride 20 mEq 20 meq PO DAILY 11/17/22 01/20/23 History tablet,extended release lorazepam 1 mg tablet 1 mg PO Q4H PRN anxiety #10 tabs 11/24/22 01/20/23 Rx morphine concentrate 100 mg/5 mL See Rx Instructions PO Q1H PRN #30 11/24/22 01/20/23 Rx (20 mg/mL) oral solution mL gabapentin 100 mg capsule 200 mg PO DAILY 11/27/22 01/20/23 History multivitamin 1 tab PO DAILY 12/20/22 01/20/23 History fentanyl 50 mcg/hr transdermal 1 patch transdermal Q72H #5 ea 01/13/23 01/20/23 Rx patch Exam Narrative Exam Narrative: General: older adult male, thin, cachectic, pale, cooperative HEENT: hard of hearing, hearing aids in place, slightly dry MM, edentulous, no oral sores; head normocephalic atraumatic Neck: no masses Resp: even and unlabored, able to speak 1 sentence w/o SOB, speech limited d/t fatigue, no audible wheezes/cough; ausculation limited to anterior/lateral, diminished throughout and clear, shallow breaths Card: regular rate, regular rhythm; pulses 1+; HR 86 on exam GI: BS active all quadrants, tenderness throughout on light palpation Skin: thin, pale, atrophy, no lesions/rashes noted, did not conduct full skin exam Ext: no pedal edema Neuro: Awake, alert, intermittent sleeping/eyes closed; communication spec strength even bilat, no asymmetry noted Psych: pleasant, smiles intermittent, fatigued/lethargic, speech clear and slowed; answers questions appropriately Time Spent Time spent with Patient: >75 minutes Time was spent: preparing to see the patient(eg.review tests), obtaining and/or reviewing separately otained hiistory, ordering medications,tests, procedures, referring, communicating with other health child care specialist, indepentently interpreting results, counseling the patient (and family) and care coordination
[2023-01-23 06:55] VITALS: BP 85/61; PULSE 106; RESP 14; TEMP 36; O2SAT 96
[2023-01-23 07:47] LABS: Source Nasal/Nares
[2023-01-23] MEDS: Scopolamine 1 MG/3 DAYS PATCH TD (07:51)
[2023-01-23 08:18] LABS: COVID-19 PCR Negative (Negative)
[2023-01-23] MEDS: Normal Saline Flush 10 ML SYR IVP ×5 (09:13→23:55)
[2023-01-23] MEDS: Pantoprazole 40 MG VIAL IVP ×2 (09:35→19:26)
[2023-01-23] MEDS: Normal Saline 1,000 ML 30 ML IV (09:45)
[2023-01-23 10:20] VITALS: BP 109/75; PULSE 88
[2023-01-23] MEDS: Ondansetron 4 MG/2 ML VIAL IVP ×2 (11:43→19:25)
[2023-01-23] MEDS: ACETAMINOPHEN 1,000 MG/100 ML BTL 400 MG IVPB ×2 (11:44→21:01)
[2023-01-23] MEDS: LORazepam 2 MG/ML VIAL IV/SC (14:04)
--- NOTE | 2023-01-23 15:48 | RESPIRATORY ---
RT spoke with patient's family concerning this history of Sleep Apnea listed in chart. Family said he has a CPAP machine but he hasn't used it for awhile and he does not wear O2 at night.
--- NOTE | 2023-01-23 15:54 | INITIAL_ITS ---
Date of service: 01/23/23 Time of Service: 15:55 Care Management Initial Assmt Initial Assessment REASON FOR HOSPITALIZATION:: Hospice Symptoms Management PREVIOUS FUNCTIONAL STATUS/SOCIAL/FAMILY SUPPORTS:: Andrés lives in [facility] with his , Jaswinder, an adult son, [id number], and grandchildren. 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 He was independent with his ADLs until this year when he began unintentionally losing weight and was subsequently diagnosed with pancreatic cancer. CURRENT FUNCTIONAL STATUS:: Andrés is lying in bed sleeping when CM comes to see him. His , son and daughter are present in the room. Jaswinder shares Andrés had a rapid decline in his health beginning on Wednesday with uncontrollable vomiting and diarrhea. Family hopes he will be able to return home as his favorite holiday is and he was looking forward to seeing the [id number]. ADVANCE DIRECTIVES:: On file; Josy Bocanegra is appointed as HCA. Has patient been provided with info about the portal/API?: No Did the patient sign up for the portal?: No CODE STATUS:: DNR/DNI INSURANCE COVERAGE / FINANCIAL ISSUES:: Andrés is admitted to Hospice. CURRENT HOME/COMMUNITY SERVICES/EQUIPMENT:: [facility] PRIMARY CARE PHYSICIAN:: Yohan Pino MD. TRANSPORTATION:: [facility]. PLAN:: Andrés will return home on hospice if symptoms are under better control. If symptoms worsen, he will remain at [facility] for end of life care. will continue to support Andrés and his family. PFSH All Active Problems (Updated 01/23/23 @ 06:27 by Katherine Ambrocio NP) Constipation (Acute) Pain (Acute) Weakness (Acute) Vomiting (Acute) Malignant ascites (Acute) Hospice care (Acute) Pancreatic cancer (Acute) CAD (coronary artery disease) (Chronic) SOB (shortness of breath) (Acute) Atrial fibrillation (Chronic) COPD (chronic obstructive pulmonary disease) (Chronic) Diabetes mellitus (Chronic) Hx of CABG (Chronic) Hypertension (Chronic) Dyslipidemia (Chronic) Essential tremor (Chronic) CHF (congestive heart failure) (Chronic) DVT prophylaxis (Acute) Sensorineural hearing loss of both ears (Acute) Venous insufficiency (Acute) Balanitis (Acute) Ischemic cardiomyopathy (Acute) Sleep apnea (Acute) Sciatica of right side (Acute) Hypomagnesemia (Acute) Willough[place] syndrome (Acute) Vitamin D deficiency (Acute) Sensorineural hearing loss, bilateral (Acute) History of excessive cerumen (Acute) Medical History Adenomatous polyps ASCVD (arteriosclerotic cardiovascular disease) Atrial flutter Coronary artery disease Diabetes mellitus type 2 in obese Hyperlipidemia Hypertension Impacted cerumen, left ear Malignant neoplasm of head of pancreas Sigmoid diverticulosis UTI (urinary tract infection) (08/04/14) Surgical History Colonoscopy - IV Sedation (~2009) Coronary Artery Bypass Gaft (CABG) (10/04/14) Hx of prior ablation treatment cardiac - 2018 Hx of tonsillectomy Family History Sister Diabetes CHF (congestive heart failure) Father , 62 Heart attack Stroke Brother Diabetes Kidney failure Social History Smoking/Tobacco Use Status: Former Tobacco Use Quit Date: 03/29/91 Smoking risk assessment performed?: Yes Alcohol Intake: never Drug use: Never Substance use type: does not use Housing: house Current gender identity: male What is your relationship status?: Panel score (0-1 are the most socially isolated patients): 1 Do you feel safe at home: Yes Do you feel safe in your relationship?: Yes Additional Social history: [facility] to [facility]
[2023-01-23] MEDS: Sucralfate 1 GM TAB PO (19:26)
[2023-01-23] MEDS: Creon, Lipase 24,000 CAPCR PO (21:01)
[2023-01-23] MEDS: Prochlorperazine 10 MG/2 ML VIAL IVP (23:55)
[2023-01-24] MEDS: Ondansetron 4 MG/2 ML VIAL IVP (02:41)
[2023-01-24] MEDS: Normal Saline Flush 10 ML SYR IVP ×8 (02:41→23:33)
[2023-01-24] MEDS: ACETAMINOPHEN 1,000 MG/100 ML BTL 400 MG IVPB (02:41)
[2023-01-24] MEDS: LORazepam 2 MG/ML VIAL 0.5 MG IVP ×2 (03:49→23:33)
--- NOTE | 2023-01-24 06:56 | NUR.NOTE ---
Nursing Note: Patient experienced increased agitation at 0300, bladder scanned due to no void for 15 hrs, 684cc present in bladder at that time and visibly distended. Patient consented to catheter placement for comfort. 16 fr palmer catheter placed by Yoselyn Holt RN, with immediate red, bloody urine/clots. Catheter intermittently draining, however, repeatedly occluded by clots requiring repeated, slow, irrigation. Per patient family, patient required urology catheter placement in the past. CC notified. FINISH CARPENTER recommended removal of 16 fr and replacement with 14 fr to promote drainage. 14 fr placed by this RN, more red, bloody urine with small clots upon insertion. Irrigation with sterile water (15cc) attempted, catheter slowly draining. Patient appears comfortable at this time. CC made aware of slow draining, FINISH CARPENTER to follow up this morning.
[2023-01-24] MEDS: Pantoprazole 40 MG VIAL IVP ×2 (07:48→20:52)
--- NOTE | 2023-01-24 10:45 | W.PM.PROGNOT ---
Date of Service Date of service: 01/24/23 Time of Service: 09:45 Assessment and Plan Assessment and plan (1) Hospice care: Status: Acute Assessment and plan: Neel will remain at [facility] for symptom management; suspect he will remain here through EoL, pending family's desire to return home. life expectancy remains hours to days, less likely weeks - reviewed w/family signs present demonstrating transition to EoL; changes in respiratory pattern, pallor, decreased alertness plan for taper fluids w/family permission, reviewed concerns for over hydration, body's inability to process; they agree but feel it gives him comfort, based on improvement yesterday. Comfortable w/taper and reassessment - Fluid taper: stop continous now; 1 hour run at 1400 today at 30ml/hr rate; 1 hour run tomorrow 0700 at 15ml/hr rate; reassess (2) Pancreatic cancer: Status: Acute (3) Vomiting: Status: Acute Assessment and plan: none since admission; increased nausea overnight, improved w/Compazine and lorazepam continue scopolamine; Zofran, Compazine, lorazepam PRN (4) Weakness: Status: Acute Assessment and plan: repositioning for comfort recommend do not get out of bed w/o staff assist (5) Pain: Status: Acute Assessment and plan: suspect increased pain w/furrowed brow and grimace during repositioning will premedicate prior to repositioning w/morphine 2mg IV, family agrees reviewed increase use of morphine to avoid grimace and furrowed, family to engage in pain management (6) Constipation: Status: Acute Assessment and plan: BM last evening minimal food intake (7) Malignant ascites: Status: Acute Assessment and plan: w/weekly paracentesis w/Dr. Kellogg, will place consult for non-urgent evaluation this week (8) Difficulty urinating: Status: Acute Assessment and plan: Palmer placed overnight, difficulty w/placement and increased agitation/pain (9) Blood in urine: Status: Acute Assessment and plan: consult urology placed, for assistance w/comfort as a goal Subjective Subjective Interval history since last seen: Neel is resting comfortably at time of visit; Josy, Jim and Vince sitting at bedside N/V: overnight nausea returned, improved w/Compazine and lorazepam, continues Zofran PRN - no reported nausea or abdominal guarding - has continued to tolerate sips of water; has some bites of ice cream and calzone last night Pain: mostly controlled, some grimacing w/repositioning; received Tylenol 3x in past 24 hours w/some effect; will attempt morphine prior to repositioning today - family reports dreams have given him furrowed brow, they don't feel it is pain - he has always been stoic about pain, w/limited pain complaints Fluids: continues w/continuous NS 15mL/hr, tolerated taper from 30mL appropriately. no edema, no breathing complaints. continues to makes urine, abdomin stable. Family agrees to concerns w/fluid overload d/t body slowing down Respirations: slight change in respiration pattern w/shallower breaths, abnormal pattern, deny apnea periods; no coughing, no secretions Urine: had not moved urine, bladder scan w/around 600cc, Palmer cath insertion overnight w/increased discomfort, hematuria; continues w/aylin blood, difficulty w/some clots, requiring irrigation, however appears to be working; nursing and family requesting urology consult for comfort - family reports h/o traumatic palmer insertion in [facility] that required urology intervention s/p similar symptoms as above Bowels: moved large BM yesterday afternoon w/sons presents Activities: OOB for BM w/sons, requiring 2 person assist per son Vince, dizziness/weakness after bathroom requiring increased assistance - increased fidgeting and picking, does not seem to be distressing - last awake w/palmer insertion, sleeping comfortably since then; last awake and conversational last evening w/eating Passenger Service Representative visit yesterday went well, will plan on visiting next Wednesday. deny acute need for Vice President [employer] consult family does not feel comfortable taking home today, worried about now be able to care appropriately at home in his current state, feel he would be okay with this, he was happy he was in hospital yesterday Exam Narrative Exam Narrative: General: older adult male, thin, cachectic, pale; sleeps throughout visit; slight smile during physical exam; period of 1m w/furrowed brow HEENT: mouth open, dry MM, edentulous, no oral sores; head normocephalic atraumatic Neck: no masses Resp: unlabored, abnormal pattern, shallow, no apnea witnessed throughout exam, no audible wheezes/cough; auscultation limited to anterior/lateral, diminished throughout and clear Card: regular rate, regular rhythm; pulses 1+; GI: BS hypoactive but present all quadrants Skin: thin, pale, atrophy, no lesions/rashes noted, did not conduct full skin exam Ext: no pedal edema, feet and hands warm Neuro: slight twitching intermittent Psych: nonresponsive, did not actively try to wake; slight picking w/hands intermittent Objective Last Vital Signs Temp 96.8 F L 01/23/23 06:55 Pulse 88 01/23/23 10:20 Resp 14 01/23/23 06:55 BP 109/75 01/23/23 10:20 Pulse Ox 96 01/23/23 06:55 Time Spent with Patient Time Spent with Patient: 25-34 minutes Time was spent: preparing to see the patient(eg.review tests), obtaining and/or reviewing separately otained hiistory, ordering medications,tests, procedures, referring, communicating with other health skin care consultant and care coordination
[2023-01-24] MEDS: Normal Saline 500 ML 30 ML IV (14:36)
[2023-01-25] MEDS: Lidocaine 2% Jelly 6 ML SYR (00:19)
--- NOTE | 2023-01-25 01:21 | NUR.NOTE ---
Several attempts made to insert Veloz catheter same unsuccessful. Patients relative present, was reassured that we will do our best in keeping patient comfortable until seen by urologist in the [place], relatives agreed.
[2023-01-25] MEDS: LORazepam 2 MG/ML VIAL IV/SC ×3 (01:34→20:21)
[2023-01-25] MEDS: Normal Saline Flush 10 ML SYR IVP ×5 (01:34→10:13)
--- NOTE | 2023-01-25 01:44 | NUR.NOTE ---
Patient't palmer catheter was not draining urine. Pt has had many large blood clots obstructing the flow. RN attempted to irrigate catheter and was able to clear the catheter but it immediately clots off once irrigation is done. Pt's family in room and updated. automotive exhaust emissions technician updated. Many attempts were made to replace catheter, including with a three-way catheter, all were unsuccessful. Catheter coils inside, unable to get flow. Bladder scan still shows about 700cc. Urologist to come this morning to assess patient. RN reassured pt and family that we will do our best to keep him comfortable overnight. Nursing Note:
[2023-01-25] MEDS: Lidocaine 2% Jelly 6 ML SYR UR (05:01)
--- NOTE | 2023-01-25 07:54 | UCONE_ITS ---
Date of service: 01/25/23 Time of Service: 07:58 Assessment and Plan Assessment and plan (1) Difficulty urinating: Status: Acute Assessment and plan: A Veloz catheter can stay in place for up to 30 days. I would simply leave the catheter in place as long as it seems to be helping with the patient's comfort level. History of Present Illness History of Present Illness Chief Complaint: Urinary retention Narrative: This is a 77-year-old gentleman who has a history of pancreatic cancer and malignant ascites. He is now on hospice care. He has not made much urine and has had some abdominal discomfort. His bladder scans have shown up to 700 cc, but when the nursing staff has attempted to catheterize this gentleman, they have only obtained bloody fluid and clots. Review of Systems Unobtainable due to mental status PFSH All Active Problems (Updated 01/24/23 @ 13:17 by Katherine Ambrocio NP) Blood in urine (Acute) Difficulty urinating (Acute) Constipation (Acute) Pain (Acute) Weakness (Acute) Vomiting (Acute) Malignant ascites (Acute) Hospice care (Acute) Pancreatic cancer (Acute) CAD (coronary artery disease) (Chronic) SOB (shortness of breath) (Acute) Atrial fibrillation (Chronic) COPD (chronic obstructive pulmonary disease) (Chronic) Diabetes mellitus (Chronic) Hx of CABG (Chronic) Hypertension (Chronic) Dyslipidemia (Chronic) Essential tremor (Chronic) CHF (congestive heart failure) (Chronic) DVT prophylaxis (Acute) Sensorineural hearing loss of both ears (Acute) Venous insufficiency (Acute) Balanitis (Acute) Ischemic cardiomyopathy (Acute) Sleep apnea (Acute) Sciatica of right side (Acute) Hypomagnesemia (Acute) [place] syndrome (Acute) Vitamin D deficiency (Acute) Sensorineural hearing loss, bilateral (Acute) History of excessive cerumen (Acute) Medical History Adenomatous polyps ASCVD (arteriosclerotic cardiovascular disease) Atrial flutter Coronary artery disease Diabetes mellitus type 2 in obese Hyperlipidemia Hypertension Impacted cerumen, left ear Malignant neoplasm of head of pancreas Sigmoid diverticulosis UTI (urinary tract infection) (08/04/14) Surgical History Colonoscopy - IV Sedation (~2009) Coronary Artery Bypass Gaft (CABG) (10/04/14) Hx of prior ablation treatment cardiac - 2018 Hx of tonsillectomy Family History Sister Diabetes CHF (congestive heart failure) Father , 62 Heart attack Stroke Brother Diabetes Kidney failure Social History Smoking/Tobacco Use Status: Former Tobacco Use Quit Date: 03/29/91 Smoking risk assessment performed?: Yes Alcohol Intake: never Drug use: Never Substance use type: does not use Housing: house Current gender identity: male What is your relationship status?: Panel score (0-1 are the most socially isolated patients): 1 Do you feel safe at home: Yes Do you feel safe in your relationship?: Yes Additional Social history: unable to assess privatley Exam Narrative Exam Narrative: He is a frail older gentleman who seems comfortable throughout the procedure. Results Last Vital Signs Temp 36 C L 01/23/23 06:55 Pulse 88 01/23/23 10:20 Resp 14 01/23/23 06:55 BP 109/75 01/23/23 10:20 Pulse Ox 96 01/23/23 06:55 Insert Bladder Catheter Procedure performed by: Mega Aguilera Indication for procedure: Yes Position of patient: supine Type of anesthesia: topical gel Catheter size (Fr): 18 Catheter type: coude tip Lubrication: Yes Catheter inserted: with difficulty Volume instilled into catheter balloon: 10 cc Amount of urine: 200 Urine color: yellow Urine clarity: clear Clots present: No Irrigation: No Catheter attached to: bedside drainage bag Patient tolerated procedures: well Complications: No Text: The patient was seen at the bedside. Initially, [id number] ultrasound of the bladder was performed. The ultrasound documented that he did indeed have urine in the bladder and that the fluid found on bladder scan was not all ascites fluid. I then prepped the urethral meatus with Betadine. 2% Xylocaine jelly was instilled into the urethra to act as a local anesthetic. An 18 [place] coud? tip ped catheter was passed through the urethra into the bladder. I tried different angles of insertion for the catheter tip and eventually, the tip found its way into the bladder. Clear yellow urine was obtained. The catheter balloon was inflated with 10 cc of sterile water and the catheter was hooked to gravity drainage.
[2023-01-25] MEDS: Pantoprazole 40 MG VIAL IVP ×2 (08:23→20:16)
[2023-01-25] MEDS: Atropine 1% Ophth Sol. 2 ML BTL SL ×4 (08:23→15:09)
--- NOTE | 2023-01-25 08:33 | W.PM.PROGNOT ---
Date of Service Date of service: 01/25/23 Time of Service: 07:20 Assessment and Plan Assessment and plan (1) Hospice care: Status: Acute Assessment and plan: Neel will remain at [facility] for symptom management thru EOL; Life expectancy hours to days, reviewed with family IV fluids discontinued, family agrees (2) Pancreatic cancer: Status: Acute (3) Vomiting: Status: Acute Assessment and plan: none since admission; continue scopolamine; Zofran, Compazine, lorazepam PRN (4) Pain: Status: Acute Assessment and plan: Now controlled with morphine 2 to 4 mg IV q1h PRN; reviewed signs and symptoms of pain with family, encouraged to reach out to nursing with early signs of uncontrolled pain (5) Malignant ascites: Status: Acute Assessment and plan: w/weekly paracentesis w/Dr. Kellogg, will place consult for non-urgent evaluation this week - Family aware that further paracentes is not likely, would appreciate visit from Dr. Kellogg as able (6) Difficulty urinating: Status: Acute Assessment and plan: coude catheter placed by Dr. Aguilera this morning with immediate output of 700cc of dark yellow urine, no aylin blood or clots noted; coude catheter may stay in through EoL w/no concerns -Appreciate urgent consult and assistance with this case from urology (7) End of life care: Status: Acute Assessment and plan: Neel will remain at [facility] through end-of-life - continue oral care, atropine, scopolamine for respiratory secretion buildup Subjective Subjective Interval history since last seen: Neel is lying in bed eyes closed at time of visit. Vince Ferris and friend at bedside Urine:Veloz catheter stopped working overnight, nursing attempted to place a three-way with irrigation which they were unable to do, bladder scan with approximately 700 cc. Some reported pain, abdominal/bladder guarding - Dr. Aguilera Consult this morning, he was able to successfully place coude catheter with minimal pain or agitation. Immediately drained around 750 cc of dark yellow urine, no aylin blood or clots identified in bag N/V: No complaints of nausea. Occasional hiccups, around 510 resolved, family reports Compazine and lorazepam has been working well for hiccups in home, will request with prolonged hiccups Pain mostly controlled, some grimacing: And guarding of abdomen and with catheter repositioning and insertion. Morphine 2 mg has been given more frequently in the last 24 hours with good effect on pain. Last dose around 7 AM this morning. Family feels pain is well controlled at this time Fluids: Last fluids given in bolus yesterday afternoon. Family agreed to discontinuing IVF at this time; no edema, increased wet cough -Has continued to tolerate sips of water, yesterday drink throughout the day. Had 3 bites of squash last night Respiratory: Continues with shallow and minimally abnormal breath pattern. Denies apnea.'s. Increased cough, wet, nonproductive. Vince reports atropine will be used this morning Bowels: Last BM Wednesday afternoon Activities: Has remained bedbound; Since Wednesday. Fidgeting and picking has been less, does continue every once in a while, especially in dream state. Last awake for talking was last evening, was able to answer some questions with with Vince early this morning; family doing repositioning for comfort Social: Family has been visiting, had lots of visitors yesterday and Wednesday, oldest grandson will visit this morning family feels that all people have been able to visit and Shirley Wellington will visit again today. Family preference to remain in hospital through end-of-life Exam Narrative Exam Narrative: General: older adult male, thin, cachectic, pale; sleeps throughout visit; slight smile during physical exam; period of 1m w/furrowed brow HEENT: mouth open, dry MM, edentulous, no oral sores; head normocephalic atraumatic Neck: no masses Resp: unlabored, abnormal pattern, shallow, no apnea witnessed throughout exam, two episodes of wet cough nonproductive nondistressing; no audible wheezes; auscultation limited to anterior/lateral, diminished throughout and clear Card: regular rate, regular rhythm; pulses 1+; GI: BS hypoactive to absent Skin: thin, pale, atrophy, no lesions/rashes noted, did not conduct full skin exam Ext: no pedal edema, feet and hands warm w/slight coolness to tips of toes Neuro: slight twitching intermittent; episode of hiccups 5 total Psych: nonresponsive, did not actively try to wake; Objective Last Vital Signs Temp 96.8 F L 01/23/23 06:55 Pulse 88 01/23/23 10:20 Resp 14 01/23/23 06:55 BP 109/75 01/23/23 10:20 Pulse Ox 96 01/23/23 06:55 Time Spent with Patient Time Spent with Patient: 35-49 minutes Time was spent: preparing to see the patient(eg.review tests), obtaining and/or reviewing separately otained hiistory, ordering medications,tests, procedures, referring, communicating with other health daycare director and care coordination
--- NOTE | 2023-01-25 08:51 | PDOC.CMPRO ---
Date of service: 01/25/23 Time of Service: 08:53 Care Management Progress Note Progress Note Text Progress Note Text: S/O: Neel was resting comfortably when CM met with him. He was surrounded by multiple family members, and there were more in the hallway, all here to support Neel at this difficult time. Hospice met with them today, and stated that his life expectancy is likely hours to days, which was reviewed with the family. Neel will remain at [facility] for end of life care. CM will continue to support Neel and his family. A: Neel is a 77 year old male admitted to [facility] on hospice symptom management. P: Andrés will return home on hospice if symptoms are under better control. If symptoms worsen, he will remain at [facility] for end of life care. CM will continue to support Andrés and his family.
[2023-01-25] MEDS: Prochlorperazine 10 MG/2 ML VIAL IVP ×2 (10:14→16:15)
[2023-01-25] MEDS: Scopolamine 1 MG/3 DAYS PATCH TD (10:33)
[2023-01-25] MEDS: ACETAMINOPHEN 1,000 MG/100 ML BTL 400 MG IVPB ×2 (11:37→20:17)
--- NOTE | 2023-01-25 16:28 | W.SURGCON ---
Date of service: 01/25/23 Time of Service: 16:28 Assessment and Plan Assessment and plan (1) End of life care: Status: Acute Assessment and plan: I talked with Neel martines for a little while outside the room, and explained that I am more than happy to provide a therapeutic paracentesis if he thinks it would benefit him. His family and friends are extremely supportive, and it sounds like he has been feeling a little bit better with the recent interventions. At this point, I do not think there is much benefit to weight gain for paracentesis. I explained to the family that I am more than happy to come back at any time day or night to provide the procedure if they think will help with his nausea, vomiting, or abdominal pain. History of Present Illness History of Present Illness Chief Complaint: Abdominal pain Narrative: Neel is 77 years old, and is dying from pancreatic cancer. His recent condition has been complicated by malignant ascites, requiring near weekly paracentesis. Since his last intervention, he has developed a significant amount of lethargy, as well as abdominal pain with nausea and vomiting. He was admitted to the hospital for palliation of his symptoms. I was asked to see him for consideration of another therapeutic paracentesis. I was able to meet with Neel son at the bedside. He says he has been sleeping most of the morning. It sounds like he is feeling a little bit better since the insertion of a Veloz catheter. PFSH All Active Problems End of life care (Acute) Blood in urine (Acute) Difficulty urinating (Acute) Constipation (Acute) Pain (Acute) Weakness (Acute) Vomiting (Acute) Malignant ascites (Acute) Hospice care (Acute) Pancreatic cancer (Acute) CAD (coronary artery disease) (Chronic) SOB (shortness of breath) (Acute) Atrial fibrillation (Chronic) COPD (chronic obstructive pulmonary disease) (Chronic) Diabetes mellitus (Chronic) Hx of CABG (Chronic) Hypertension (Chronic) Dyslipidemia (Chronic) Essential tremor (Chronic) CHF (congestive heart failure) (Chronic) DVT prophylaxis (Acute) Sensorineural hearing loss of both ears (Acute) Venous insufficiency (Acute) Balanitis (Acute) Ischemic cardiomyopathy (Acute) Sleep apnea (Acute) Sciatica of right side (Acute) Hypomagnesemia (Acute) [place] syndrome (Acute) Vitamin D deficiency (Acute) Sensorineural hearing loss, bilateral (Acute) History of excessive cerumen (Acute) Medical History Malignant neoplasm of head of pancreas Impacted cerumen, left ear Atrial flutter ASCVD (arteriosclerotic cardiovascular disease) Hypertension Diabetes mellitus type 2 in obese Hyperlipidemia Adenomatous polyps Coronary artery disease Sigmoid diverticulosis UTI (urinary tract infection) (08/04/14) Surgical History Hx of prior ablation treatment cardiac - 2018 Hx of tonsillectomy Colonoscopy - IV Sedation (~2009) Coronary Artery Bypass Gaft (CABG) (10/04/14) Family History Sister Diabetes CHF (congestive heart failure) Father , 62 Heart attack Stroke Brother Diabetes Kidney failure Social History Smoking/Tobacco Use Status: Former Tobacco Use Quit Date: 03/29/91 Smoking risk assessment performed?: Yes Alcohol Intake: never Drug use: Never Substance use type: does not use Housing: house Current gender identity: male What is your relationship status?: Panel score (0-1 are the most socially isolated patients): 1 Do you feel safe at home: Yes Do you feel safe in your relationship?: Yes Additional [facility]: [facility] Results Last Vital Signs Temp 96.8 F L 01/23/23 06:55 Pulse 88 01/23/23 10:20 Resp 14 01/23/23 06:55 BP 109/75 01/23/23 10:20 Pulse Ox 96 01/23/23 06:55
[2023-01-25] MEDS: fentaNYL 50 MCG PATCH TD (20:02)
[2023-01-26] MEDS: LORazepam 2 MG/ML VIAL 0.5 MG IVP (01:32)
[2023-01-26] MEDS: Prochlorperazine 10 MG/2 ML VIAL IVP (03:01)
[2023-01-26 07:24] VITALS: PULSE 90; RESP 26
[2023-01-26] MEDS: Atropine 1% Ophth Sol. 2 ML BTL SL (07:24)
[2023-01-26] MEDS: Normal Saline Flush 10 ML SYR IVP ×4 (07:45→14:51)
[2023-01-26] MEDS: Pantoprazole 40 MG VIAL IVP ×2 (07:45→19:20)
--- NOTE | 2023-01-26 10:36 | CMPROGNOTE_ITS ---
Date of service: 01/26/23 Time of Service: 10:36 Care Management Progress Note Progress Note Text Progress Note Text: S/O: Neel was resting comfortably when CM met with him. He has been surrounded by several family members and friends consistently, and his has not left his side. CM spoke to Josy and Vince, who expressed appreciation for the care Neel is receiving while at [facility]. Josy stated that is Neel's favorite holiday; CM asked some staff who were in [facility] to visit the family, which was well received. Josy stated that Deanna from [facility] has been visiting daily, and that he will be supporting them with services after he passes. Josy mentioned that they will be working with [facility] for final arrangements. [facility] will continue to support Neel and his family through this difficult time. A: Neel is a 77 year old male admitted to [facility] on hospice symptom management. P: Andrés will remain at [facility] for end of life care. His family is very supportive, and visiting consistently. The family has decided to use [facility] for final arrangements. CM will continue to support Andrés and his family.
[2023-01-26] MEDS: Glycopyrrolate 0.2 MG/1 ML VIAL IVP (11:28)
--- NOTE | 2023-01-26 14:45 | W.PM.PROGNOT ---
Date of Service Date of service: 01/26/23 Time of Service: 14:45 Assessment and Plan Assessment and plan (1) Hospice care: Status: Acute Assessment and plan: Neel will remain at [facility] for symptom management through EOL; Life expectancy hours to days. He appears comfortable. Will start morphine drip for comfort as he has received multiple doses of morphine IV and has fentanyl patch in place. Remove fentanyl patch, rely on IV drip for pain control. (2) Pancreatic cancer: Status: Acute (3) Vomiting: Status: Acute Assessment and plan: none since admission; continue scopolamine; Zofran, Compazine, lorazepam PRN (4) Pain: Status: Acute Assessment and plan: Start morphine drip as above. (5) Malignant ascites: Status: Acute Assessment and plan: Surgical team consulted. Dr. Armstrong met with Neel's son. Shared decision making to hold off on paracentesis for now. He appears comfortable. (6) Difficulty urinating: Status: Acute Assessment and plan: coude catheter placed by Dr. Aguilera. Coude catheter may stay in through EoL w/no concerns. Continues to drain without issues today. (7) End of life care: Status: Acute Assessment and plan: Neel will remain at [facility] through end-of-life - continue oral care, atropine, scopolamine for respiratory secretion buildup Subjective Subjective Interval history since last seen: Neel is at [facility] for Hospice Sx management. His family was bathing him and repositioning him when i arrived. He appears very comfortable. Nursing pre-medicated him with IV morphine. He has had multiple doses of IV morphine overnight and today. Discussed the option of starting a morphine drip and his family would like to start one. He is unresponsive. He is not taking anything PO. He has increased respiratory secretions, he has scop patch in place. Nursing is also using atropine drops and robinul IV with relief. His family is pleased with the care that he is getting at [facility]. His life expectancy is measured in hours to days. He will remain at [facility] through the end of his life. Exam Narrative Exam Narrative: General: thin, pale, elderly man, laying in bed, in NAD. He is completely unresponsive to verbal or tactile stimuli. He was sleeping through personal care during the visit. He appear to be resting comfortably. HEENT: normocephalic, atraumatic, EOMI, mm dry, mouth open, edentulous. Cardiovascular: heart sounds regular, tachycardic. Respiratory: respirations appear even and unlabored. Lungs sound clear on limited anterior and lateral exam. No increased respiratory secretions noted at time of exam. GI: abd soft, does not appear distended, hypoactive BS, no reaction to palpation. extremities: no edema, feet are cool to touch. Objective Last Vital Signs Temp 36 C L 01/23/23 06:55 Pulse 90 01/26/23 07:24 Resp 26 H 01/26/23 07:24 BP 109/75 01/23/23 10:20 Pulse Ox 96 01/23/23 06:55 Time Spent with Patient Time Spent with Patient: 25-34 minutes Time was spent: preparing to see the patient(eg.review tests), obtaining and/or reviewing separately otained hiistory, ordering medications,tests, procedures, referring, communicating with other health tire care manager and care coordination
--- NOTE | 2023-01-26 16:06 | CHAPLAIN ---
Neel is here for end of life care. He is unresponsive. His , Jaswinder, has remained with him. Friends and family members have continued to visit. Jaswinder said that she believes Neel is comfortable, and also that he is comforted be hearing the voices of his family members. He was on hospice at home before coming here. The family members seem realistic that Neel is nearing the end of his life. Fr. Huerta has been visiting daily and told Jaswinder he would come in anytime. I will continue to visit.
[2023-01-26] MEDS: LORazepam 2 MG/ML VIAL IV/SC ×2 (18:03→21:24)
[2023-01-26] MEDS: HYDROmorphone 100 MG in Normal Saline 240 ML IV (18:08)
[2023-01-27] MEDS: ACETAMINOPHEN 1,000 MG/100 ML BTL 400 MG IVPB (02:57)
--- NOTE | 2023-01-27 06:33 | NUR.NOTE ---
post mortem care given to pt and placed body in body bag for to pickle cutter. removed folly catheter. wasted fentanyl patch in sharp container charge nurse luke sanchez wast. could not record on MAY
--- NOTE | 2023-01-27 08:24 | W.PM.DDS ---
Date of service: 01/27/23 Time of Service: 08:24 Discharge Plan Disposition Patient Disposition: Discharge Details Reason For Visit: Pancreatic Cancer Admit Date/Time: 01/23/23 05:55 Admit Provider: Katherine Ambrocio Attending Provider: Katherine Ambrocio Primary Care Provider: Yohan Pino [place] [facility] Course Hospital Course: Neel was on hospice for pancreatic cancer. He also had PMHx sig for CHF, CAD, a fib (on Eliquis), COPD, DM. He was admitted to [facility] for Sx managament after he began declining w/increased weakness and dizziness. In the 24-48 hours prior to admission, he has had increased uncontrolled nausea and vomiting w/reported brown emesis. He was hypotensive with systolic BP in the 60s. He was weak, pale and diaphoretic. He was visited by nursing at home and they were not able to control his symptoms at home. He was admitted to [facility] on 01/23/23 for uncontrolled symptoms. During the admission, he transitioned to end of life care. It was decided to keep him at [facility] through end of life. He went unresponsive on 01/25/23. A hydromorphone infusion was initiated on 01/26/23. He comfortably on 01/27/23. Discharge Data Cause of : Pancreatic neoplasm Discharge Date/Time-TO BE ENTERED AT DEPARTURE: 01/27/23 06:40 Discharge Sum: Prov Provider Consults: 01/24/23 10:36 Urology Consult [CONS] Routine Consulting Provider: Mega Aguilera Consultation Status:: Follow-up needed Clarification:: One time opinion Reason for consult:: 77 y/o M on hospice care for pancreatic cancer; in hospital on symptom management. Palmer cath placed last night after 600ccs on bladder scan; difficulty placing palmer w/aylin blood, ongoing hematuria, difficulty w/irrigation d/t clots, and agitation. family and nursing requesting urology consult to assess comfort and function of palmer. 01/25/23 08:58 Surgical Consult [CONS] Routine Consulting Provider: Ginette Kellogg Consultation Status:: Contact made by Clarification:: One time opinion Reason for consult:: Mr. Shaikh has been followed outpatient by Dr. Kellogg r/t ascites 2/2 pancreatic cancer, managed w/paracentesis. Pt not inpatient for EoL care. Family aware that further paracentesis may not be indicated, however would appreciate (if time available) follow-up with Dr. Kellogg, whom was next scheduled to see him on Wed. *This is a non-urgent consult* Discharge Sum: Diag Contributing Factors (1) Hospice care: (2) Pancreatic cancer: (3) Vomiting: (4) Pain: (5) Malignant ascites: (6) Difficulty urinating: (7) End of life care: Discharge Sum: Summary Date and Time Admission Date: 01/23/2310/28/23 05:55 Date of : 01/27/23 Time of : 04:17 Summary Details: Neel was on hospice for pancreatic cancer. He also had PMHx sig for CHF, CAD, a fib (on Eliquis), COPD, DM. He was admitted to [facility] for Sx managament after he began declining w/increased weakness and dizziness. In the 24-48 hours prior to admission, he has had increased uncontrolled nausea and vomiting w/reported brown emesis. He was hypotensive with systolic BP in the 60s. He was weak, pale and diaphoretic. He was visited by nursing at home and they were not able to control his symptoms at home. He was admitted to [facility] on 01/23/23 for uncontrolled symptoms. During the admission, he transitioned to end of life care. It was decided to keep him at [facility] through end of life. He went unresponsive on 01/25/23. A hydromorphone infusion was initiated on 01/26/23. He comfortably on 01/27/23.
== END 2023-01-27 06:40 | disposition expired | DRG 436 ==
PROVIDERS: Family Medicine; Admitting Provider Nurse Practitioner Family; PCP Family Medicine; Visit Provider Nurse Practitioner Family
DX: C25.0 Malignant neoplasm of head of pancreas (principal); R18.0 Malignant ascites; Z51.5 Encounter for palliative care; R53.1 Weakness; K59.00 Constipation, unspecified; I50.9 Heart failure, unspecified; I25.10 Atherosclerotic heart disease of native coronary artery without angina pectoris; I48.91 Unspecified atrial fibrillation; Z79.01 Long term (current) use of anticoagulants; J44.9 Chronic obstructive pulmonary disease, unspecified; E11.9 Type 2 diabetes mellitus without complications; R10.9 Unspecified abdominal pain; Z95.1 Presence of aortocoronary bypass graft; E78.5 Hyperlipidemia, unspecified; G25.0 Essential tremor; H90.3 Sensorineural hearing loss, bilateral; I11.0 Hypertensive heart disease with heart failure; I87.8 Other specified disorders of veins; I25.5 Ischemic cardiomyopathy; G47.30 Sleep apnea, unspecified; E83.42 Hypomagnesemia; M54.31 Sciatica, right side; R42 Dizziness and giddiness; R11.2 Nausea with vomiting, unspecified; R33.9 Retention of urine, unspecified
CPT/HCPCS: 51703; 00123; 87635; 94640; 94664; J0131; J0780; J1170; J2060; J2405; J3490